=== PATIENT | female | born 1940 | race Caucasian/White ===

== ENCOUNTER → 2020-09-06 10:01 | Outpatient (BNVA) | payer MEDICARE, SELFPAY | PROVIDERS: Visit Provider Internal Medicine Gastroenterology | DX: K21.9 Gastro-esophageal reflux disease without esophagitis (principal); K58.1 Irritable bowel syndrome with constipation | CPT/HCPCS: Q3014 ==

== ENCOUNTER 2021-02-15 13:07 | Emergency (ER) | payer MEDICARE, SELFPAY ==
--- NOTE | ~2021-02-15 | XR_ITS ---
EXAMINATION: LEFT KNEE AND ANKLE X-RAY CLINICAL INFORMATION: Pain post fall COMPARISON: None TECHNIQUE: 4 views of the left knee and 3 views of the left ankle FINDINGS: Left ankle: Bone alignment is normal. No fracture or dislocation is seen. The ankle mortise is normal. There is soft tissue arterial calcification. Left knee: Bone alignment is normal. No fracture or dislocation is seen. There is degenerative meniscal calcification. There is medial femoral tibial joint space narrowing. There are small osteophytes at the patellofemoral joint. There is a small joint effusion. There is evidence of atherosclerotic disease. XR/XR knee LT 4V IMPRESSION: Left ankle: No fracture or dislocation. Left knee: Mild degenerative changes and small joint effusion. No fracture or dislocation.
--- NOTE | ~2021-02-15 | XR_ITS ---
EXAMINATION: LEFT KNEE AND ANKLE X-RAY CLINICAL INFORMATION: Pain post fall COMPARISON: None TECHNIQUE: 4 views of the left knee and 3 views of the left ankle FINDINGS: Left ankle: Bone alignment is normal. No fracture or dislocation is seen. The ankle mortise is normal. There is soft tissue arterial calcification. Left knee: Bone alignment is normal. No fracture or dislocation is seen. There is degenerative meniscal calcification. There is medial femoral tibial joint space narrowing. There are small osteophytes at the patellofemoral joint. There is a small joint effusion. There is evidence of atherosclerotic disease. XR/XR ankle LT min 3V IMPRESSION: Left ankle: No fracture or dislocation. Left knee: Mild degenerative changes and small joint effusion. No fracture or dislocation.
[2021-02-15 13:19] VITALS: BP 135/72; PULSE 63; RESP 16; TEMP 36.6; O2SAT 98; BMI 30.1
--- NOTE | 2021-02-15 14:41 | ED.LOWEXIN ---
HPI - Extremity Injury (Lower) General Chief Complaint: Extremity Injury, Lower Stated Complaint: FALL KNEE INJ Time Seen by Provider: 02/15/21 14:41 History of Present Illness HPI Narrative: Patient complains of left ankle and left knee pain after a trip and fall yesterday, she is able to ambulate easily with her walker, she remembers everything she had no syncope no presyncope no dizziness no chest pain no headache and was a simple trip and fall Related Data Home Medications Medication Instructions Recorded Confirmed dicyclomine 10 mg capsule 10 mg PO BID 09/06/20 09/06/20 gabapentin 300 mg capsule 300 mg PO BID 09/06/20 09/06/20 lovastatin 20 mg tablet 20 mg PO QPM 09/06/20 09/06/20 propranolol 10 mg tablet 10 mg PO BID 09/06/20 09/06/20 Previous Rx's Medication Instructions Recorded dicyclomine 10 mg capsule 10 mg PO BID 30 Days #60 cap MDD 4 09/06/20 Allergies Allergy/AdvReac Type Severity Reaction Status Date / Time penicillin V Allergy Unknown rash Verified 09/06/20 10:02 Penicillins Allergy Unknown RASH Verified 09/06/20 10:02 Review of Systems Review of Systems: Positive for left knee and left ankle pain Negatives are no fever no chills no dizziness no weakness no fainting no feeling faint no vision changes no headache no neck pain no back pain no numbness weakness or tingling Yes all other systems are reviewed and are negative [facility] Past Medical History Source: nursing notes reviewed Medical History (Updated 02/16/21 @ 00:01 by Xi Mascorro) GERD (gastroesophageal reflux disease) Irritable bowel syndrome with constipation Surgical History (Updated 09/07/20 @ 14:33 by Adrienne Vidal MD) H/O esophagogastroduodenoscopy Hx of colonoscopy Family History Family History Father No problems noted. Mother Diabetes Heart problem Social History Social History Household Members: None Alcohol intake: current Alcohol intake frequency: does not drink Smoking Status: Never smoker Physical Exam Vital Signs: Vital Signs: Last Vital Signs Temp 97.9 F 02/15/21 13:19 Pulse 63 02/15/21 13:19 Resp 16 02/15/21 13:19 BP 135/72 02/15/21 13:19 Pulse Ox 98 02/15/21 13:19 Body Mass Index 30.1 General appearance no acute distress Head is normocephalic atraumatic Neck supple nontender The back supple nontender Respiratory no distress Extremities the left knee has anterior tenderness no obvious deformity no obvious effusion no ligamentous laxity patient can do a straight leg raise, neurovascular intact distal Left ankle had lateral malleolus mild tenderness no significant swelling, range of motion was normal and neurovascular intact distal Upper extremities were normal Neuro no gross motor or sensory deficit Course Course Course Narrative: X-rays did not reveal any acute fracture, knee x-ray did show some arthritis Patient remains comfortable throughout visit and is referred for orthopedic follow-up Discharge Plan Discharge Clinical Impression: Osteoarthritis of left knee, Left ankle sprain Patient Disposition: Home, Self-Care Additional Instructions: Follow with your doctor and orthopedist if necessary X-rays showed arthritis in the left knee There were no broken bones in left knee or left ankle Return any time any worse condition or any concerns Prescriptions: No Action lovastatin 20 mg tablet 20 mg PO QPM RF: 0 gabapentin 300 mg capsule 300 mg PO BID RF: 0 propranolol 10 mg tablet 10 mg PO BID RF: 0 dicyclomine 10 mg capsule 10 mg PO BID RF: 0 dicyclomine 10 mg capsule 10 mg PO BID MDD 4 30 Days Qty: 60 RF: 4 Referrals: Marbella Brown MD [Physician] - 2 days (Left knee osteoarthritis) Interventions: ED Discharge Assessment Last Done: 02/15/21 14:50 Discharge Date/Time: 02/15/21 14:51
== END 2021-02-15 14:51 | disposition home or self-care (01) ==
PROVIDERS: Emergency Provider Emergency Medicine; PCP Internal Medicine Pulmonary Disease
DX: M17.12 Unilateral primary osteoarthritis, left knee (principal); S93.402A Sprain of unspecified ligament of left ankle, initial encounter; W01.0XXA Fall on same level from slipping, tripping and stumbling without subsequent striking against object, initial encounter; Y93.9 Activity, unspecified; Y92.019 Unspecified place in single-family (private) house as the place of occurrence of the external cause; Y99.9 Unspecified external cause status
CPT/HCPCS: 73564; 73610; 99283

== ENCOUNTER → 2021-03-29 08:51 | Outpatient (BNVA) | payer MEDICARE, SELFPAY | PROVIDERS: PCP Internal Medicine Pulmonary Disease; Referring Provider Internal Medicine Pulmonary Disease; Visit Provider Nurse Practitioner Family | DX: K21.9 Gastro-esophageal reflux disease without esophagitis (principal); K58.0 Irritable bowel syndrome with diarrhea | CPT/HCPCS: 99212 ==

== ENCOUNTER 2021-05-01 08:50 | Emergency (ER) | payer MEDICARE, SELFPAY ==
[2021-05-01 09:04] VITALS: BP 186/87; PULSE 70; RESP 16; TEMP 36.8; O2SAT 98; BMI 28.2
--- NOTE | 2021-05-01 09:09 | ED_ITS ---
HPI - Wound/Laceration General Chief Complaint: Wound/Laceration Stated Complaint: BURN ON L FOOT WORK RELATED Source: patient Mode of arrival: ambulatory Limitations: no limitations History of Present Illness HPI narrative: Patient presents to ED for left foot pain described as burning. 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 Patient denies any fever, chills, or worsening redness. Patient unknown when last tetanus. Related Data Home Medications Medication Instructions Recorded Confirmed gabapentin 300 mg capsule 300 mg PO BID 09/06/20 09/06/20 lovastatin 20 mg tablet 20 mg PO QPM 09/06/20 09/06/20 propranolol 10 mg tablet 10 mg PO BID 09/06/20 09/06/20 loperamide 2 mg tablet 2 mg PO Q6H PRN 03/29/21 03/29/21 loratadine 5 mg/5 mL oral solution 5 ml PO BID 03/29/21 03/29/21 omeprazole 40 mg capsule,delayed 40 mg PO DAILY 03/29/21 03/29/21 release Previous Rx's Medication Instructions Recorded dicyclomine 10 mg capsule 10 mg PO BID #60 cap 03/29/21 bacitracin 1 appl TOPICAL BID 7 Days #28 g 05/01/21 Allergies Allergy/AdvReac Type Severity Reaction Status Date / Time penicillin V Allergy Unknown rash Verified 03/29/21 09:17 Penicillins Allergy Unknown RASH Verified 03/29/21 09:17 Review of Systems Review of Systems: Yes all other systems are reviewed and are negative Constitutional: Constitutional: Reports as per HPI and Reports no additional constitutional complaints Eyes: Eyes: Reports as per HPI and Reports no additional eye complaints ENT: Reports system reviewed and no additional complaints, except as documented and Reports as per HPI Cardiovascular: Cardiovascular: Reports as per HPI and Reports no additional cardiovascular complaints Respiratory: Respiratory: Reports as per HPI and Reports no additional respiratory complaints Gastrointestinal: Gastrointestinal: Reports as per HPI and Reports no additional gastrointestinal complaints Genitourinary: Genitourinary: Reports no additional female genitourinary complaints and Reports as per HPI Musculoskeletal: Musculoskeletal: Reports no additional musculoskeletal complaints and Reports as per HPI Comments: Foot pain Neurologic: Reports system reviewed and no additional complaints, except as documented and Reports as per HPI Psychiatric: Psychiatric: Reports no additional psychiatric complaints and Reports as per HPI PMF Past Medical History Medical History (Updated 05/01/21 @ 10:51 by JORDAN Sainz) GERD (gastroesophageal reflux disease) Irritable bowel syndrome with constipation Surgical History (Updated 09/07/20 @ 14:33 by Adrienne Vidal MD) H/O esophagogastroduodenoscopy Hx of colonoscopy Family History Family History Father No problems noted. Mother Diabetes Heart problem Social History Social History Household Members: None Alcohol intake: never Smoked in Last 30 Days: No Use of substances other than those prescribed or required for medical reasons: No Advance Directives: No Advance Directives Information Provided: No Physical Exam Vital Signs: Vital Signs: Last Vital Signs Temp 98.2 F 05/01/21 09:04 Pulse 70 05/01/21 09:04 Resp 16 05/01/21 09:04 BP 168/81 H 05/01/21 10:39 Pulse Ox 98 05/01/21 09:04 Body Mass Index 28.2 Const: General: cooperative, healthy appearing, comfortable, no acute distress, well developed, alert, awake and Physically active Orientation/ consciousness: patient oriented x3 HENMT: Head: Yes normal to inspection, Yes No palpable skull fracture present, Yes normocephalic, Yes atraumatic and No abrasion Eyes: General: appearance normal, both eyes and all related structures Neck: Neck: Yes normal visual inspection, Yes full ROM, Yes no lymphadenopathy, Yes no meningeal signs, Yes trachea midline, Yes supple and No tender Chest: Chest palpation & inspection: normal inspection of the chest and normal palpation of entire chest wall Resp: Effort & Inspection: normal respiratory effort and able to speak in complete sentences Auscultation: clear to auscultation bilaterally Cardio: Jugular venous distension: no JVD Heart sounds: S1 normal heart sound present and S2 normal heart sound present GI: Inspection: Yes normal to inspection and No abdominal wall ecchymosis Palpation (GI): Soft to palpation, not firm, nontender, no guarding and not rigid : General: No CVA tenderness and Yes no CVA tenderness Back/Spine/Pelvis: Back: no CVA tenderness, No CVA tenderness and No back tenderness Skin: Other: Second-degree burn of left foot Neuro: General: patient oriented x3, no meningeal signs and CN's II-XI intact bilaterally Cranial nerves: Yes CN's II-XII intact bilaterally Extrem: Other: Left foot second-degree burn. Left foot vascular/motor/neuro exam is intact Psych: Appearance: grossly normal, well kempt and not disheveled Course Course Course Narrative: Patient has second-degree burn. Patient's states feeling very anxious and in pain which could be contributing to her elevated blood pressure. Patient denies any history of blood pressure. Reevaluation(s) Reevaluation #1: This detergent looked up online and negative for hydro florid acid. Just Hypochlorine. Wound will be irrigated and placed in bacitracin ointment and dressing. Her hearing current tetanus injection. Patient does not have any history of diabetes any immuno compromise diseases. As per up-to-date antibiotics not necessary. Time: 21:28 Reevaluation #2: Patient blood pressure improved. Patient states no history of blood pressure. No indication for labs. Patient will be discharged informed to follow-up with PCP for her blood pressure and wound clinic for burn. Patient wound was irrigated and bacitracin was placed with new dressing place. Time: 10:40 MDM - Wound/Laceration MDM Narrative Medical decision making narrative: Second-degree burn Discharge Plan Discharge Clinical Impression: Second degree burn Patient Disposition: Home, Self-Care Instructions: Second Degree Burn (ED) Additional Instructions: Return to the ED for any pus discharge, foul odor, fever, chills, severe redness, swelling, calf pain, development of red streaks, chest pain, shortness of breath, or any other concerning symptoms. Please follow-up with your PCP. Prescriptions: New bacitracin 500 unit/gram ointment 1 appl topical BID 7 Days Qty: 28 RF: 0 No Action lovastatin 20 mg tablet 20 mg PO QPM RF: 0 gabapentin 300 mg capsule 300 mg PO BID RF: 0 propranolol 10 mg tablet 10 mg PO BID RF: 0 omeprazole 40 mg capsule,delayed release(DR/EC) 40 mg PO DAILY RF: 0 loratadine [Claritin] 5 mg/5 mL solution 5 ml PO BID RF: 0 loperamide [Imodium A-D] 2 mg tablet 2 mg PO Q6H PRNRF: 0 dicyclomine 10 mg capsule 10 mg PO BID Qty: 60 RF: 2 Referrals: Irene Daniels PA [Physician [employer]] - 2 days (Left foot second-degree burn) Moraima Miller MD [Primary Care Provider] - 2 days (Seen in the ED for left foot second-degree burn. His pressure was slightly elevated most likely du e to white coat hypertension, the patient should follow up with PCP to re- evaluate blood pressure.) Interventions: ED Discharge Assessment Last Done: 05/01/21 11:00 Discharge Date/Time: 05/01/21 11:05 Print Language: Indonesian
[2021-05-01] MEDS: Diphth,Pertus(ACell),Tet Adult 0.5 ML SYRINGE IM (09:30)
[2021-05-01] MEDS: Bacitracin Oint 14 GM TUBE 1 APPL TOPICAL (09:30)
[2021-05-01] MEDS: Ibuprofen 800 MG TABLET PO (09:30)
[2021-05-01 10:39] VITALS: BP 168/81
== END 2021-05-01 11:05 | disposition home or self-care (01) ==
PROVIDERS: Emergency Provider Emergency Medicine; PCP Internal Medicine
DX: T55.1X1A Toxic effect of detergents, accidental (unintentional), initial encounter (principal); T25.622A Corrosion of second degree of left foot, initial encounter; T32.0 Corrosions involving less than 10% of body surface; Y93.G1 Activity, food preparation and clean up; Y92.511 Restaurant or cafe as the place of occurrence of the external cause; Y99.0 Civilian activity done for income or pay
CPT/HCPCS: 16020; 90471; 90715; 99284

== ENCOUNTER 2021-05-27 12:29 | Outpatient (REF) | payer MEDICARE, SELFPAY ==
[2021-05-28 12:31] LABS: H Pylori Breath Test NOT DETECTED (NOT DETECTED)
== END 2021-05-27 12:30 | disposition home or self-care (01) ==
LOC: HO.LNP 12:29
PROVIDERS: PCP Internal Medicine; Visit Provider Nurse Practitioner Family
DX: K21.9 Gastro-esophageal reflux disease without esophagitis (principal); K58.2 Mixed irritable bowel syndrome
CPT/HCPCS: 83013; 99212

== ENCOUNTER 2022-08-21 00:20 | Emergency (ER) | payer MEDICARE, SELFPAY ==
[2022-08-21 00:28] VITALS: BP 108/87; PULSE 79; RESP 18; TEMP 36.8; O2SAT 99; BMI 29.2
[2022-08-21 00:42] LABS: Basophils Absolute Auto 0.1 X10*3/uL (0.0-0.2); Basophils Percent Auto 0.7 % (0-2); Eosinophils Absolute Auto 0.3 X10*3/uL (0.0-0.4); Hemoglobin 12.3 g/dl (12.0-16.0); Imm Gran Abs Auto 0.03 X10*3/uL (0.00-0.03); Imm Gran Pct Auto 0.3 % (0.0-0.4); Lymphocytes Absolute Auto 1.8 X10*3/uL (1.2-4.9); MANUAL DIFF FLAG NO; Mean Corpuscular HGB Conc 33.2 g/dl (31.0-35.0); Mean Corpuscular Hemoglobin 28.9 pg (27.0-33.0); Mean Corpuscular Volume 87.1 fL (80.0-98.0); Mean Platelet Volume 10.6 fL (9.4-12.3); Monocytes Absolute Auto 0.9 X10*3/uL (0.1-1.2); Neutrophils Absolute Auto 6.4 x10*3/uL (2.0-8.3); Platelet Count 238 X10*3/uL (160-400); Red Blood Count 4.25 X10*6/uL (4.20-5.50); Red Cell Distribution Width 14.5 % (11.0-16.0); White Blood Count 9.4 X10*3/uL (4.8-10.8)
[2022-08-21 01:02] LABS: Alanine Aminotransferase 14 U/L (0-31); Albumin Level 4.2 g/dL (3.5-5.0); Alkaline Phosphatase 95 U/L (39-117); Anion Gap 19 (12-20); Aspartate Amino Transferase 20 U/L (5-31); Bilirubin Total 0.5 mg/dL (0.0-1.0); Blood Urea Nitrogen 29 mg/dL (9-16); Calcium 9.7 mg/dL (8.4-10.2); Carbon Dioxide 23 mmol/L (22-29); Chloride 105 mmol/L (96-108); Creatinine Clr Calc Pharmacy 37.7; Estimated Glomerular Filt Rate 49; Glucose Random 99 mg/dL (60-115); Potassium 4.7 mmol/L (3.3-5.1); Sodium 142 mmol/L (135-145); Total Protein 7.1 g/dL (6.5-8.0)
[2022-08-21 02:28] LABS: Appearance Urine Cloudy; Color Urine Yellow; Glucose Urine UA Negative (Negative); Leukocyte Esterase Urine Moderate (2+) (Negative); Nitrite Urine Positive (Negative); PH 5.5 (5.0-9.0); Specific Gravity - Urine 1.015 (1.005-1.025); UMIC TRIGGER UACC YES; Urine Blood Trace (Negative); Urine Ketones Negative (Negative); Urine Protein 300 (3+) mg/dL (Neg-Trace)
[2022-08-21 02:32] LABS: Bacteria Urine 4+ (None Seen); Hyaline Casts Urine 0-2 /LPF (0-2); Squamous Epithelial Cell Urine 0-2 /HPF (0-2); UACC Culture Trigger YES; WBC Urine >50 /HPF (0-5)
[2022-08-21 03:10] VITALS: BP 131/78; PULSE 88; RESP 22; TEMP 37.2; O2SAT 95
--- NOTE | 2022-08-21 03:27 | ED.FEMALEGU ---
HPI - Female Genitourinary General Chief complaint: Urogenital-Female Stated complaint: UTI Time Seen by Provider: 08/21/22 03:02 Source: patient Mode of arrival: ambulatory History of Present Illness HPI Narrative: 82-year-old female presents with 4 days of worsening urinary pain/burning/frequency and patient now has intermittent chills and has some lower back pain. Related Data Home Medications Medication Instructions Recorded Confirmed lovastatin 20 mg tablet 20 mg PO QPM 09/06/20 09/06/20 loratadine 5 mg/5 mL oral solution 5 ml PO BID 03/29/21 03/29/21 (Claritin) biotin 1 mg capsule 1 mg PO DAILY 05/27/21 gabapentin 300 mg capsule 400 mg PO BID 05/27/21 lisinopril 5 mg tablet 5 mg PO DAILY 05/27/21 naproxen sodium 220 mg capsule 220 mg PO BID PRN 05/27/21 (Aleve) Previous Rx's Medication Instructions Recorded bacitracin 500 unit/gram topical 1 appl topical BID 7 days #28 grams 05/01/21 ointment methylcellulose (laxative) 500 mg 500 mg PO DAILY #30 tabs 05/27/21 tablet (Citrucel) cefdinir 300 mg capsule 300 mg PO BID 7 days #14 caps 08/21/22 Allergies Allergy/AdvReac Type Severity Reaction Status Date / Time penicillin V Allergy Unknown rash Verified 05/27/21 13:16 Penicillins Allergy Unknown RASH Verified 05/27/21 13:16 Review of Systems Review of Systems: Pertinent positives and negatives as stated in HPI 10 point review of systems is otherwise negative. [facility] Past Medical History Source: nursing notes reviewed Medical History GERD (gastroesophageal reflux disease) Irritable bowel syndrome with constipation Surgical History H/O esophagogastroduodenoscopy Hx of colonoscopy Family History Family History Father No problems noted. Mother Diabetes Heart problem Social History Social History Household Members: None Alcohol intake: never Smoked in Last 30 Days: No Use of substances other than those prescribed or required for medical reasons: No Advance Directives: No Patient : No Physical Exam Vital Signs: Vital Signs: Last Vital Signs Temp 98.9 F 08/21/22 03:10 Pulse 88 08/21/22 03:10 Resp 22 H 08/21/22 03:10 BP 131/78 08/21/22 03:10 Pulse Ox 95 08/21/22 03:10 O2 Del Method 08/21/22 03:10 BMI result Body Mass Index 29.2 VITAL SIGNS: Reviewed. GENERAL: Well developed, well nourished, in no acute distress. HEAD: Normocephalic/atraumatic EYES: PERRLA, EOMI EARS: Ext canals without abnormality OROPHARYNX: no oral lesions noted, posterior pharynx clear LUNGS: Normal breath sounds. No adventitious sounds or accessory muscle use. SpO2<95> CARDIOVASCULAR: Regular rate and rhythm without noted murmurs ABDOMEN: Soft, non-tender, non-distended with bowel sounds. MUSCULOSKELETAL: No tenderness, deformities, or effusions noted on gross inspection. EXTREMITIES: No cyanosis, clubbing or edema. SKIN: Inspection of the skin reveals no rashes NEUROLOGIC: Alert and oriented x 4. Strength and sensation to light touch were grossly intact x 4. Course Course Course Narrative: 82-year-old female with history and clinical presentation after review of all investigations consistent with UTI and given additional symptoms of chills and lower back pain suspect possible pyelonephritis. This patient has 1 kidney and so will cover her for presumptive pyelonephritis as well as providing her with analgesics. MDM - Female Genitourinary Lab Data Result diagrams: 08/21/22 00:38 08/21/22 00:38 Labs: Lab Results 08/21/22 08/21/22 08/21/22 Range/Units 00:38 00:38 02:22 WBC 9.4 (4.8-10.8) X10*3/uL RBC 4.25 (4.20-5.50) X10*6/uL Hgb 12.3 (12.0-16.0) g/dl Hct 37.0 (37.0-47.0) % MCV 87.1 (80.0-98.0) fL MCH 28.9 (27.0-33.0) pg MCHC 33.2 (31.0-35.0) g/dl RDW 14.5 (11.0-16.0) % Plt Count 238 (160-400) X10*3/uL MPV 10.6 (9.4-12.3) fL Immature Gran % (Auto) 0.3 (0.0-0.4) % Neut % (Auto) 68.0 (45-73) % Lymph % (Auto) 19.0 L (20-40) % Gilchrist % (Auto) 9.0 (2-11) % Eos % (Auto) 3.0 (0-4) % Baso % (Auto) 0.7 (0-2) % Lymph # (Auto) 1.8 (1.2-4.9) X10*3/uL Gilchrist # (Auto) 0.9 (0.1-1.2) X10*3/uL Eos # (Auto) 0.3 (0.0-0.4) X10*3/uL Baso # (Auto) 0.1 (0.0-0.2) X10*3/uL Abs Immat Gran (auto) 0.03 (0.00-0.03) X10*3/uL Absolute Neuts (auto) 6.4 (2.0-8.3) x10*3/uL Absolute Nucleated RBC 0.000 (0.0-0.012) X10*3/uL Nucleated RBC % (auto) 0.0 (0.0-0.2) /100WBC Sodium 142 (135-145) mmol/L Potassium 4.7 (3.3-5.1) mmol/L Chloride 105 (96-108) mmol/L Carbon Dioxide 23 (22-29) mmol/L Anion Gap 19 (12-20) BUN 29 H (9-16) mg/dL Creatinine 1.07 (0.5-1.4) mg/dL Estim Creat Clear Calc 37.7 Estimated GFR 49 Random Glucose 99 (60-115) mg/dL Calcium 9.7 (8.4-10.2) mg/dL Total Bilirubin 0.5 (0.0-1.0) mg/dL AST 20 (5-31) U/L ALT 14 (0-31) U/L Alkaline Phosphatase 95 (39-117) U/L Total Protein 7.1 (6.5-8.0) g/dL Albumin 4.2 (3.5-5.0) g/dL Urine Color Yellow Urine Appearance Cloudy Urine pH 5.5 (5.0-9.0) Ur Specific [place] 1.015 (1.005-1.025) Urine Protein 300 (3+) H (Neg-Trace) mg/dL Urine Glucose (UA) Negative (Negative) mg/dL Urine Ketones Negative (Negative) mg/dL Urine Blood Trace H (Negative) Urine Nitrite Positive H (Negative) Ur Leukocyte Esterase Moderate (2+) H (Negative) Urine RBC 6-10 H (0-2) /HPF Urine WBC >50 H (0-5) /HPF Ur Squamous Epith Cells 0-2 (0-2) /HPF Urine Bacteria 4+ (None Seen) Hyaline Casts 0-2 (0-2) /LPF Discharge Plan Discharge Clinical Impression: Pyelonephritis Patient Disposition: Home, Self-Care Instructions: Kidney Infection (ED) Additional Instructions: 1. Complete the entire course of antibiotics as ordered. 2. Recommend [id number] Tylenol for pain relief. And increased amount of water drinking. 3. Follow-up with primary care provider today. Return to the ER for worsening symptoms. Prescriptions: New cefdinir 300 mg capsule 300 mg PO BID 7 Days Qty: 14 0RF No Action bacitracin 500 unit/gram ointment 1 appl topical BID 7 Days Qty: 28 0RF lisinopril 5 mg tablet 5 mg PO DAILY naproxen sodium [Aleve] 220 mg capsule 220 mg PO BID PRN biotin 1 mg capsule 1 mg PO DAILY Citrucel 500 mg tablet 500 mg PO DAILY Qty: 30 2RF Rx Instructions: take it with full glass of water lovastatin 20 mg tablet 20 mg PO QPM gabapentin 300 mg capsule 400 mg PO BID loratadine [Claritin] 5 mg/5 mL solution 5 ml PO BID Referrals: Eliza Ibrahim NP [Primary Care Provider] -
[2022-08-21] MEDS: Phenazopyridine HCL 200 MG TABLET PO (04:48)
[2022-08-21] MEDS: Acetaminophen 325 MG TABLET 975 MG PO (04:48)
[2022-08-21] MEDS: levoFLOXacin 500 MG TABLET PO (04:48)
== END 2022-08-21 05:00 | disposition home or self-care (01) ==
PROVIDERS: Emergency Provider Student in an Organized Health Care Education/Training Program; PCP Nurse Practitioner Family
DX: N12 Tubulo-interstitial nephritis, not specified as acute or chronic (principal); B96.20 Unspecified Escherichia coli [E. coli] as the cause of diseases classified elsewhere
CPT/HCPCS: 36415; 80053; 81001; 85025; 87086; 87088; 87186; 99283; 99284

== ENCOUNTER → 2023-02-21 07:51 | Outpatient (BNVA) | payer MEDICARE, SELFPAY | PROVIDERS: PCP Nurse Practitioner Family; Visit Provider Nurse Practitioner Family | DX: K21.9 Gastro-esophageal reflux disease without esophagitis (principal); K58.1 Irritable bowel syndrome with constipation; K44.9 Diaphragmatic hernia without obstruction or gangrene; Z79.899 Other long term (current) drug therapy | CPT/HCPCS: 99212 ==

== ENCOUNTER 2023-11-18 03:06 | Inpatient (IN) | payer MEDICARE, SELFPAY ==
[2023-11-18] VITALS (8 sets, daily range): BP systolic 104–174; BP diastolic 52–100; PULSE 74–110; RESP 15–20; TEMP 36.3–37.2; O2SAT 91–96; BMI 29.2; BMI 29.3
--- NOTE | 2023-11-18 | ECG_ITS ---
Test Reason : FALL Blood Pressure : / mmHG Vent. Rate : 083 BPM Atrial Rate : 083 BPM P-R Int : 162 ms QRS Dur : 078 ms QT Int : 394 ms P-R-T Axes : 077 043 016 degrees QTc Int : 462 ms Normal sinus rhythm Normal ECG When compared with ECG of 22-AUG-2018 08:57, No significant change was found Referred By: Generic ED Physician Electronically Signed By:TED HO
--- NOTE | ~2023-11-18 | FL_ITS ---
EXAMINATION: XR FLUOROSCOPY WITH IMAGES CLINICAL INFORMATION: Retrograde IM nail placement. COMPARISON: Right knee 11/18/2023. TECHNIQUE: Fluoroscopy Supervised By: Dr. Rico Friedman. Fluoroscopy Time: 1.4 minutes. Cumulative Dose: 22.3 mGy. DAP: 0.336 Gy-cm2. Images: 10. FINDINGS: 10 digital images were obtained revealing total knee prosthesis. There is intramedullary femoral zelda with 2 distal screws stabilizing oblique distal femoral shaft fracture. FL/FL guidance in OR IMPRESSION: There is intramedullary femoral zelda and 2 screws stabilizing distal femoral oblique fracture in alignment.
--- NOTE | ~2023-11-18 | CT_ITS ---
EXAMINATION: CT FEMUR WITHOUT CONTRAST, RIGHT CLINICAL INFORMATION: Trauma. COMPARISON: None available. TECHNIQUE: Contiguous axial noncontrast CT scan images of the right femur were obtained without contrast. Sagittal and coronal reformatted images also obtained. This CT examination was performed using dose optimization techniques as appropriate, variously including the following: *Automated exposure control *Adjustment of mA and/or kV according to patient size (this includes techniques or standardized protocols for targeted exams where dose is matched to indication/reason for exam; i.e. extremities or head) *Use of iterative reconstruction technique DLP: 364 mGy-cm FINDINGS: The bony structures are osteopenic. There is a displaced fracture through the distal femoral shaft extending to the femoral metaphysis just above the knee prosthesis. There is atherosclerotic plaque of the arterial vessels. No other fracture seen. The soft tissues are grossly unremarkable. The visualized intrapelvic structures are also unremarkable. CT/CT femur RT wo IV con IMPRESSION: Displaced fracture through the distal femoral shaft extending to the femoral metaphysis just above the knee prosthesis.
--- NOTE | ~2023-11-18 | XR_ITS ---
EXAMINATION: XR KNEE, RIGHT CLINICAL INFORMATION: Fall. Pain. COMPARISON: None available. TECHNIQUE: 3 views of the right knee. FINDINGS: The bony structures are osteopenic. A knee prosthesis noted in place. There is a displaced fracture of the distal femoral shaft. There is a small joint effusion. There is atherosclerotic plaque of the arterial vessels. XR/XR knee RT 2V IMPRESSION: Displaced fracture of the distal femoral shaft.
--- NOTE | ~2023-11-18 | XR_ITS ---
EXAMINATION: XR CHEST CLINICAL INFORMATION: Preop. COMPARISON: None available. TECHNIQUE: Frontal view of the chest was obtained. FINDINGS: The lung volumes are low and the patient is rotated. The cardiomediastinal silhouette is stable. There is lower lung field increased markings. There is no focal lung consolidation or pleural effusion. A left shoulder prosthesis is noted in place. Thoracolumbar orthopedic hardware is also noted. The soft tissues are unremarkable. XR/XR chest 1V IMPRESSION: Low lung volumes. Lower lung field increased markings likely technical and/or chronic. No focal lung consolidation.
[2023-11-18 03:50] LABS: Hematocrit 35.6 % (37.0-47.0); Hemoglobin 11.9 g/dl (12.0-16.0); Mean Corpuscular HGB Conc 33.4 g/dl (31.0-35.0); Mean Corpuscular Hemoglobin 30.1 pg (27.0-33.0); Mean Corpuscular Volume 90.1 fL (80.0-98.0); Mean Platelet Volume 10.3 fL (9.4-12.3); Platelet Count 214 X10*3/uL (160-400); Red Blood Count 3.95 X10*6/uL (4.20-5.50); Red Cell Distribution Width 13.7 % (11.0-16.0); White Blood Count 8.7 X10*3/uL (4.8-10.8)
[2023-11-18] MEDS: Acetaminophen 325 MG TABLET 975 MG PO ×2 (04:01→19:43)
--- NOTE | 2023-11-18 04:12 | ED_ITS ---
HPI - Fall General Chief Complaint: Fall Stated Complaint: fall Time Seen by Provider: 11/18/23 04:11 Source: patient Mode of arrival: EMS Limitations: no limitations History of Present Illness HPI Narrative: Patient came by EMS after the fall when she trying to get off the couch lost balance and fell on her right knee was unable to stand up because of the pain crawled called the EMS swelling and tenderness in the lower right femur just above the knee joint patient apparently had right knee replacement about 8- 9 years ago at [facility] for arthritis, no other injuries patient not on any blood thinners Related Data Home Medications Medication Instructions Recorded Confirmed biotin 1 mg capsule 1 mg PO DAILY 05/27/21 lisinopril 5 mg tablet 5 mg PO DAILY 05/27/21 omeprazole 20 mg capsule,delayed 20 mg PO DAILY 02/21/23 release aspirin 81 mg tablet,delayed 81 mg PO DAILY 11/18/23 release gabapentin 400 mg capsule 400 mg PO BID 11/18/23 ipratropium bromide 21 mcg (0.03 2 spray intranasal BID PRN 11/18/23 %) nasal spray Allergic Symptoms lovastatin 20 mg tablet 20 mg PO BEDTIME 11/18/23 Previous Rx's Medication Instructions Recorded methylcellulose (laxative) 500 mg 500 mg PO DAILY #30 tabs 02/21/23 tablet (Citrucel) Allergies Allergy/AdvReac Type Severity Reaction Status Date / Time penicillin V Allergy Unknown rash Verified 11/18/23 03:17 Penicillins Allergy Unknown RASH Verified 11/18/23 03:17 Review of Systems 2 Review of Systems: Yes all other systems are reviewed and are negative [facility] Past Medical History Medical History (Updated 11/18/23 @ 05:40 by Maura Serrano MD) Hypertension Hyperlipidemia GERD (gastroesophageal reflux disease) Irritable bowel syndrome with constipation Surgical History (Updated 11/18/23 @ 05:38 by Maura Serrano MD) History of back surgery H/O shoulder surgery Status post right knee replacement H/O esophagogastroduodenoscopy Hx of colonoscopy Family History Family History Father No problems noted. Mother Diabetes Heart problem Social History Social History Household Members: None Alcohol intake: never Patient Tobacco Use Status: Tobacco use Unknown Smoked in Last 30 Days: No Use of substances other than those prescribed or required for medical reasons: No Advance Directives: Yes Advance Directives Information Provided: No Advance Directives on File: No Nutrition Risks: No Nutritional Risk Physical Exam 2 Vital Signs: Vital Signs: Last Vital Signs Temp 98.4 F 11/18/23 05:24 Pulse 91 11/18/23 05:24 Resp 16 11/18/23 05:24 BP 130/57 L 11/18/23 05:24 Pulse Ox 95 11/18/23 05:24 O2 Del Method Room Air 11/18/23 05:24 BMI result Body Mass Index 29.2 Appearance: Alert. Oriented X3. No acute distress. Eyes: PERRLA, ENT: Pharynx normal. Oral Mucosa moist Neck: Normal inspection. Neck supple. CVS: Normal heart rate and rhythm. Pulses normal. Respiratory: No respiratory distress. Equal air entry bilateral, Abdomen: Soft and nontender. Bowel sounds are present, Skin: Skin warm and dry. Normal skin color. Normal skin turgor. Extremities: No lower extremity edema. No calf tenderness right knee swollen above knee with significant tenderness neurovascular intact pelvis stable hip joint stable Neuro: Oriented X 3. No motor deficit. Medications Administered Generic Name Dose Route Start Last Admin Trade Name Freq PRN Reason Stop Dose Admin Lactated Ringer's 1,000 mls @ 100 mls/hr 11/18/23 04:45 11/18/23 06:06 Lr IVCONT 100 mls/hr .Q10H MILKA Administration Sodium Chloride 3 ml 11/18/23 08:00 11/18/23 07:46 0.9 % Sodium Chloride Flush 3 Ml Syringe IVFLUSH Not Given QSHIFT MILKA Discontinued Medications Generic Name Dose Route Start Last Admin Trade Name Freq PRN Reason Stop Dose Admin Acetaminophen 975 mg 11/18/23 03:47 11/18/23 04:01 Acetaminophen 325 Mg Tablet PO 11/18/23 03:48 975 mg ONCE ONE Administration Morphine Sulfate 4 mg 11/18/23 04:37 11/18/23 04:42 Morphine Sulfate 4 Mg/Ml Cartridge IVPUSH 11/18/23 04:38 4 mg ONCE ONE Administration Protocol Ondansetron HCl 4 mg 11/18/23 04:37 11/18/23 04:42 Ondansetron Hcl 4 Mg/2 Ml Vial IVPUSH 11/18/23 04:38 4 mg ONCE ONE Administration Medical Decision Making Medical Decision Making [facility] Narrative: Patient is status post mechanical fall with displaced distal femur fracture. Case discussed with Orthopedic Dr. Elder Hernandez will admit patient to medical service plan for surgery in a.m. Differential Diagnosis Differential Diagnoses: The differential diagnosis associated with the presentation includes Admission/Observation Consideration of admission/observation: Escalation of care including admission/observation considered Consult Healthcare Provider Management of the patient was discussed with: Hospitalist and Train Engineer Lab Data [facility] Lab Attestation statement: I reviewed the patient's lab results. 11/18/23 03:45 11/18/23 03:45 Labs: Lab Results 11/18/23 Range/Units 03:45 WBC 8.7 (4.8-10.8) X10*3/uL RBC 3.95 L (4.20-5.50) X10*6/uL Hgb 11.9 L (12.0-16.0) g/dl Hct 35.6 L (37.0-47.0) % MCV 90.1 (80.0-98.0) fL MCH 30.1 (27.0-33.0) pg MCHC 33.4 (31.0-35.0) g/dl RDW 13.7 (11.0-16.0) % Plt Count 214 (160-400) X10*3/uL MPV 10.3 (9.4-12.3) fL Absolute Nucleated RBC 0.000 (0.0-0.012) X10*3/uL Nucleated RBC % (auto) 0.0 (0.0-0.2) /100WBC Sodium 142 (135-145) mmol/L Potassium 4.1 (3.3-5.1) mmol/L Chloride 108 (96-108) mmol/L Carbon Dioxide 23 (22-29) mmol/L Anion Gap 15 (12-20) BUN 23 H (9-16) mg/dL Creatinine 1.00 (0.5-1.4) mg/dL Estim Creat Clear Calc 41.3 Estimated GFR 53 Random Glucose 113 (60-115) mg/dL Calcium 8.9 D (8.4-10.2) mg/dL Troponin I High Sens 23.5 H (<3.5-17.0) ng/L Ethyl Alcohol < 10 mg/dL Independent Interpretation I performed an independent interpretation of an: EKG and Plain X-Ray Interpretation: Normal sinus rhythm heart rate 83 beats per minute normal interval normal axis no acute ST T wave changes no acute ischemia Radiology Impression Discussion of test interpretation with radiology: I have reviewed the radiologist's reading. Radiologist Impression: XR/XR knee RT 2V IMPRESSION: Displaced fracture of the distal femoral shaft. Discharge Plan Discharge Clinical Impression: Closed right femoral fracture Qualifiers: Encounter type: initial encounter Femur location: shaft Fracture morphology: s piral Fracture alignment: displaced Qualified Code(s): S72.341A - Displaced spiral fracture of shaft of right femur, initial encounter for closed fracture Patient Disposition: Admitted As Inpatient
[2023-11-18 04:17] LABS: Anion Gap 15 (12-20); Blood Urea Nitrogen 23 mg/dL (9-16); Calcium 8.9 mg/dL (8.4-10.2); Carbon Dioxide 23 mmol/L (22-29); Chloride 108 mmol/L (96-108); Creatinine Clr Calc Pharmacy 41.3; Estimated Glomerular Filt Rate 53; Glucose Random 113 mg/dL (60-115); Potassium 4.1 mmol/L (3.3-5.1); Sodium 142 mmol/L (135-145)
[2023-11-18 04:19] LABS: Ethanol < 10 mg/dL
[2023-11-18 04:25] LABS: Troponin-I High Sensitivity 23.5 ng/L (<3.5-17.0)
[2023-11-18] MEDS: ondansetron HCL 4 MG/2 ML VIAL IVPUSH (04:42)
[2023-11-18] MEDS: Morphine Sulfate 4 MG/ML CARTRIDGE IVPUSH (04:42)
--- NOTE | 2023-11-18 05:00 | P.HPHOSP_ITS ---
History of Present Illness Date of Service: 11/18/23 Attending physician on admission: Maura Serrano Chief Complaint: Fall, right thigh pain Elaine Junior is 83 years old woman with past medical history significant for hypertension and hypercholesterolemia was brought to the emergency department after she sustained a mechanical fall (while getting up off the couch). She landed on her right side. She does complain of right thigh pain. Denies head trauma. Denies any symptoms such as dizziness, shortness on breath, chest or palpitations before or after falling down. She also denies headache, fever or chills. She denies any cardiopulmonary, gastrointestinal or genitourinary symptoms. No history of CAD, diabetes or congestive heart failure reported. Denied alcohol abuse, tobacco smoking or illicit drug use. Has history of right knee replacement surgery. In the ED, vital signs are stable. Blood workup showed normal creatinine. There are no electrolyte imbalances. Hemoglobin is 11.9 (it was 12.10 Aug 2022). Troponin is slightly elevated, 23.5. Right knee x-ray shows displaced fracture of the distal femoral shaft. ECG shows NSR (HR 83 bpm) with acute ischemic changes. ED tx: APAP 975 mg PO, morphine 4 mg IV, Zofran 4 mg IV. Review of Systems 2 Review of Systems: All 12 systems were reviewed and normal except as noted in HPI. [facility] Medical History (Updated 11/18/23 @ 05:40 by Maura Serrano MD) Hypertension Hyperlipidemia GERD (gastroesophageal reflux disease) Irritable bowel syndrome with constipation Family History Father No problems noted. Mother Diabetes Heart problem Surgical History (Updated 11/18/23 @ 05:38 by Maura Serrano MD) History of back surgery H/O shoulder surgery Status post right knee replacement H/O esophagogastroduodenoscopy Hx of colonoscopy Social History Household Members: None Alcohol intake: never Smoked in Last 30 Days: No Use of substances other than those prescribed or required for medical reasons: No Advance Directives: Yes Advance Directives Information Provided: No Advance Directives on File: No Meds Allergies Allergy/AdvReac Type Severity Reaction Status Date / Time penicillin V Allergy Unknown rash Verified 11/18/23 03:17 Penicillins Allergy Unknown RASH Verified 11/18/23 03:17 Active Medications: Current Medications Acetaminophen (Acetaminophen 325 Mg Tablet) 975 mg PO Q6H PRN PRN Reason: Pain, Mild (Pain Scale 1-3) Lactated Ringer's (Lr) 1,000 mls @ 100 mls/hr IVCONT .Q10H [facility] Morphine Sulfate (Morphine Sulfate 2 Mg/Ml Cartridge) 2 mg IVPUSH Q3H PRN; Protocol PRN Reason: severe pain Ondansetron HCl (Ondansetron Hcl 4 Mg/2 Ml Vial) 4 mg IVPUSH Q6H PRN PRN Reason: Nausea and Vomiting Sodium Chloride (0.9 % Sodium Chloride Flush 3 Ml Syringe) 3 ml IVFLUSH QSHIFT [facility] Home Medications Medication Instructions Recorded Confirmed Last Taken Type lovastatin 20 mg tablet 20 mg PO QPM 09/06/20 09/06/20 Unknown History loratadine 5 mg/5 mL oral solution 5 ml PO BID 03/29/21 03/29/21 Unknown History (Claritin) biotin 1 mg capsule 1 mg PO DAILY 05/27/21 Unknown History gabapentin 300 mg capsule 400 mg PO BID 05/27/21 Unknown History lisinopril 5 mg tablet 5 mg PO DAILY 05/27/21 Unknown History omeprazole 20 mg capsule,delayed 20 mg PO DAILY 02/21/23 Unknown History release gabapentin 400 mg capsule 400 mg PO BID 11/18/23 11/18/23 Unknown History lovastatin 20 mg tablet 20 mg PO DAILY 11/18/23 11/18/23 Unknown History lovastatin 20 mg tablet 20 mg PO DAILY 11/18/23 11/18/23 Unknown History Physical Exam 2 Vital Signs and Narrative: Vital Signs: Last Vital Signs Temp 98.5 F 11/18/23 03:34 Pulse 74 11/18/23 03:34 Resp 18 11/18/23 03:34 BP 142/69 H 11/18/23 03:34 Pulse Ox 96 11/18/23 03:34 O2 Del Method Room Air 11/18/23 03:34 BMI result Body Mass Index 29.2 Constitutional - Awake and Alert, No apparent distress. HEENT - Normocephalic. Atraumatic. Pupil equally round. No scleral icterus. Heart - S1S2, RRR. No murmur. Lungs - Normal lung expansion, Normal respiratory effort, No respiratory distress, CTA bilaterally Gastrointestinal - NT / ND; +BS; No rebound or guarding Extremities - Right thigh: Edematous. No hematomas. No wounds. Distal pulses 2+. Left lower extremities: Normal appearing. Musculoskeletal - Normal inspection, normal ROM Skin - Warm/Dry Neurological - Alert & oriented x3. No facial droop. Normal speech. Normal behavior. Psychological - Appropriate affect Results Labs 11/18/23 03:45 11/18/23 03:45 Labs: Laboratory Results - last 24 hr 11/18/23 03:45 MCV 90.1 MCH 30.1 MCHC 33.4 RDW 13.7 Plt Count 214 MPV 10.3 Absolute Nucleated RBC 0.000 Nucleated RBC % (auto) 0.0 Anion Gap 15 Estim Creat Clear Calc 41.3 Estimated GFR 53 Random Glucose 113 Calcium 8.9 D Ethyl Alcohol < 10 ECG Attestation: I personally reviewed and interpreted this ECG as follows: (Normal sinus rhythm. No acute ischemic changes.) Imaging Radiologist's Impressions: Impressions Knee X-Ray 11/18/23 03:35 IMPRESSION: Displaced fracture of the distal femoral shaft. CXR - Negative. Assessment and Plan (1) Closed right femoral fracture: Qualifiers: Encounter type: initial encounter Femur location: shaft Fracture morphology: spiral Fracture alignment: displaced Qualified Code(s): S72.341A - Displaced spiral fracture of shaft of right femur, initial encounter for closed fracture Status: Acute (2) Hyperlipidemia: Qualifiers: Hyperlipidemia type: unspecified Qualified Code(s): E78.5 - Hyperlipidemia, unspecified Status: Acute (3) Hypertension: Qualifiers: Hypertension type: primary hypertension Qualified Code(s): I10 - Essential (primary) hypertension Status: Acute (4) History of back surgery: Status: Acute (5) GERD (gastroesophageal reflux disease): Qualifiers: Esophagitis presence: without esophagitis Qualified Code(s): K21.9 - Gastro-esophageal reflux disease without esophagitis Status: Acute Plan Elaine Junior is 83 years old woman admitted with: * Right distal displaced femoral shaft fracture, closed. Admit to hospitalist service. Keep NPO. Pain control with morphine IV as needed. Start IV fluids. Orthopedic surgery consult. * Mild anemia likely secondary to above. Recheck HH. * Elevated troponin. No chest pain. Normal ECG. Recheck troponin. * Hyperlipidemia. Continue lisinopril after surgery. * Hyperlipidemia. Continue statin after surgery. * GERD. Protonix IV. DVT prophylaxis: SCDs Code status: Full Patient will need hospitalization for at least 2 midnights for right femoral fracture repair surgery and supportive therapy with pain medications. Quality Stroke Does the patient have a stroke diagnosis?: No VTE Prior VTE?: No VTE Risk Level:: Medical - moderate - high VTE Device Contraindication: N/A - Device Ordered VTE Drug Contraindication: Treatment Not Indicated
--- NOTE | 2023-11-18 05:41 | MHC.EDTECH ---
Pt belongings list done.T/w and arcade game technicianVirginie ledbetter, counted money with Pt and Pt had total of $376. This was placed back in Pts purse with Pt witnessing. Belongings list signed by Pt, t/w and Virginie.
[2023-11-18] MEDS: Lactated Ringers 1,000 ML 100 ML IVCONT ×2 (06:06→14:03)
--- NOTE | 2023-11-18 06:50 | PC.NURSE ---
Pt brought in by ambulance after a fall. Reports got up off the couch and just fell. Denies any dizziness or lightheadedness. Pt doen approximately 30 minutes. No headstrike, no LOC, no thnners. Pt having 101/10 pain to R-knee. Xray and labs complete/
--- NOTE | 2023-11-18 07:54 | PC.NURSE ---
this RN assumed care. pt is alert and oriented, breathing even and unlabored. pt resting in bed, pt reports pain is manageable at this time. no new complaints
[2023-11-18 08:17] LABS: Hematocrit 32.7 % (37.0-47.0); Hemoglobin 10.8 g/dl (12.0-16.0); Mean Corpuscular Hemoglobin 29.9 pg (27.0-33.0); Mean Corpuscular Volume 90.6 fL (80.0-98.0); Mean Platelet Volume 10.2 fL (9.4-12.3); Platelet Count 190 X10*3/uL (160-400); Red Blood Count 3.61 X10*6/uL (4.20-5.50); Red Cell Distribution Width 13.6 % (11.0-16.0); White Blood Count 10.1 X10*3/uL (4.8-10.8)
[2023-11-18] MEDS: Morphine Sulfate 2 MG/ML CARTRIDGE IVPUSH (08:22)
[2023-11-18 08:27] LABS: INTERNATIONAL NORM RATIO 0.9 (0.9-1.1); Prothrombin Time 11.4 SEC (11.1-13.3)
--- NOTE | 2023-11-18 08:28 | PC.NURSE ---
pt requested pain meds for increasing right leg pain, 07/17. pt medicated per DEC.
[2023-11-18 08:36] LABS: Troponin-I High Sensitivity 25.4 ng/L (<3.5-17.0)
--- NOTE | 2023-11-18 09:21 | PHA.MEDREC ---
Pharmacy Consult ? Medication Reconciliation Pharmacy has completed the medication reconciliation. Pt states no longer on aspirin.
[2023-11-18] MEDS: Pantoprazole Sodium 40 MG/10 ML VIAL IVPUSH (09:50)
--- NOTE | 2023-11-18 10:11 | P.HPOP_ITS ---
History of Present Illness History of Present Illness Date of Service: 11/18/23 Chief complaint: Right Femur Fracture Narrative: Elaine Junior is a 83 year old female with a PMH of HTN, HLD, and GERD who presented to the ED after sustaining a mechanical fall at home while trying to get up off the couch. She reports that she lives alone. After the fall she felt immediate right knee pain and was unable to ambulate. She presented to the ED [facility] where x-rays were obtained and she was found to have a distal femur fracture with a right total knee arthroplasty. She reports that the right total knee was done some time ago at [facility] by Dr. Fernando. She was admitted to the medical service with orthopedic consult for further evaluation and treatment. Review of Systems 2 Review of Systems: Yes all other systems are reviewed and are negative [facility] Past Medical History Medical History (Updated 11/18/23 @ 05:40 by Maura Serrano MD) Hypertension Hyperlipidemia GERD (gastroesophageal reflux disease) Irritable bowel syndrome with constipation Family History Family History Father No problems noted. Mother Diabetes Heart problem Surgical History Surgical History (Updated 11/18/23 @ 05:38 by Maura Serrano MD) History of back surgery H/O shoulder surgery Status post right knee replacement H/O esophagogastroduodenoscopy Hx of colonoscopy Social History Social History Household Members: None Alcohol intake: never Patient Tobacco Use Status: Tobacco use Unknown Smoked in Last 30 Days: No Use of substances other than those prescribed or required for medical reasons: No Advance Directives: Yes Advance Directives Information Provided: No Advance Directives on File: No Nutrition Risks: No Nutritional Risk Meds Allergies Allergy/AdvReac Type Severity Reaction Status Date / Time penicillin V Allergy Unknown rash Verified 11/18/23 03:17 Penicillins Allergy Unknown RASH Verified 11/18/23 03:17 Active Medications: Current Medications Acetaminophen (Acetaminophen 325 Mg Tablet) 975 mg PO Q6H PRN PRN Reason: Pain, Mild (Pain Scale 1-3) Celecoxib (Celecoxib 200 Mg Capsule) 200 mg PO BID MILKA Hydromorphone HCl (Hydromorphone Hcl 0.5 Mg/0.5 Ml Syringe) 0.5 mg IVPUSH Q4H PRN; Protocol PRN Reason: Pain, Severe (Pain Scale 7-10) Lactated Ringer's (Lr) 1,000 mls @ 100 mls/hr IVCONT .Q10H [facility] Last Admin: 11/18/23 06:06 Dose: 100 mls/hr Ondansetron HCl (Ondansetron Hcl 4 Mg/2 Ml Vial) 4 mg IVPUSH Q6H PRN PRN Reason: Nausea and Vomiting Oxycodone HCl (Oxycodone Hcl Immed Release 5 Mg Tablet) 5 mg PO Q4H PRN PRN Reason: Pain, Moderate(Pain Scale 4-6) Oxycodone HCl (Oxycodone Hcl Er 10 Mg Tab.Er.12h) 10 mg PO BID [facility] Pantoprazole Sodium (Pantoprazole Sodium 40 Mg/10 Ml Vial) 40 mg IVPUSH DAILY [facility] Last Admin: 11/18/23 09:50 Dose: 40 mg Sodium Chloride (0.9 % Sodium Chloride Flush 3 Ml Syringe) 3 ml IVFLUSH QSHIFT [facility] Last Admin: 11/18/23 07:46 Dose: Not Given Home Medications Medication Instructions Recorded Confirmed Last Taken Type biotin 1 mg capsule 1 mg PO DAILY 05/27/21 11/18/23 11/17/23 History lisinopril 5 mg tablet 5 mg PO DAILY 05/27/21 11/18/23 11/17/23 History gabapentin 400 mg capsule 400 mg PO BID 11/18/23 11/18/23 11/17/23 History ipratropium bromide 21 mcg (0.03 2 spray intranasal BID Allergic 11/18/23 11/18/23 Unknown History %) nasal spray Symptoms lovastatin 20 mg tablet 20 mg PO BEDTIME 11/18/23 11/18/23 11/17/23 History dgppylmu-[id number]-sjo C 250 3 tab PO DAILY 11/18/23 11/18/23 11/17/23 History mg-herbal no.124 11.66 mg chewable tablet (Airborne Gummy) Physical Exam 2 Vital Signs: Vital Signs: Last Vital Signs Temp 98.4 F 11/18/23 05:24 Pulse 91 11/18/23 05:24 Resp 16 11/18/23 08:22 BP 130/57 L 11/18/23 05:24 Pulse Ox 95 11/18/23 05:24 O2 Del Method Room Air 11/18/23 05:24 BMI result Body Mass Index 29.2 Const: General: cooperative, healthy appearing and no acute distress Resp: Effort & Inspection: normal respiratory effort and able to speak in complete sentences Cardio: Rate: regular rate Peripheral pulses: Peripheral pulses 2+ throughout GI: Palpation (GI): Soft to palpation Skin: Lesions: no lesions Rashes: no rashes Extrem: Other: Right thigh is tender to palpation. Compartments are soft and compressible. RTKA surgical scar noted. Able to dorsi/plantar flex. Sensation intact. Pedal puls eintact. Results Labs 11/18/23 08:12 11/18/23 03:45 Labs: Abnormal lab results 11/18/23 11/18/23 Range/Units 03:45 08:12 RBC 3.95 L 3.61 L (4.20-5.50) X10*6/uL Hgb 11.9 L 10.8 L (12.0-16.0) g/dl Hct 35.6 L 32.7 L (37.0-47.0) % BUN 23 H (9-16) mg/dL Troponin I High Sens 23.5 H 25.4 H (<3.5-17.0) ng/L H & H 11/18/23 11/18/23 Range/Units 03:45 08:12 Hgb 11.9 L 10.8 L (12.0-16.0) g/dl Hct 35.6 L 32.7 L (37.0-47.0) % Coagulation 11/18/23 Range/Units 08:12 INR 0.9 (0.9-1.1) All other labs normal. Assessment and Plan (1) Closed right femoral fracture: Qualifiers: Encounter type: initial encounter Femur location: shaft Fracture alignment: displaced Fracture morphology: spiral Qualified Code(s): S72.341A - Displaced spiral fracture of shaft of right femur, initial encounter for closed fracture Status: Acute I discussed the case with Dr. Friedman and explained the extent of the injury to the patient and options available which include surgical intervention. I explained the procedure in detail along with the length of recovery and rehab course. I explained the risk, benefits and alternatives. Risk including, but not limited to infection, blood clots, bleeding, non union or malunion and nerve/tissue damage to surrounding areas. I answered all their questions and with their understanding they have consented to move forward with Operative Fixation of right femur. The patient will be T&S, med clearance obtained and NPO after midnight. I spoke with the patient's daughter Monalisa at [phone]. She expressed that the patient has had multiple orthopedic surgeries at [facility] and was inquiring about a transfer to [facility]. After further discussion with the patient, the patient states that she would rather stay at [facility]. She is in a great deal of pain and states that she does not want to go through another ambulance ride for transfer. We are making medication adjustments to make her pain more manageable. Quality Stroke Does the patient have a stroke diagnosis?: No VTE Prior VTE?: No VTE Risk Level:: Medical - moderate - high VTE Device Contraindication: N/A - Device Ordered VTE Drug Contraindication: Treatment Not Indicated Procedures Date of Service Date of Service: 11/18/23
[2023-11-18] MEDS: HYDROmorphone HCl 0.5 MG/0.5 ML SYRINGE IVPUSH ×3 (10:33→19:43)
--- NOTE | 2023-11-18 10:42 | PC.NURSE ---
patient a&ox3, monitoring and evaluation advisor intact-nsr, vss, pure wick placed, pt has + csm/pulses to RLE, pt had 8/10 pain- dr palacio notified and pts pain medications were changed- pt medicated per new orders. daughter torie called requesting patient to be transferred to [facility]- this nurse messaged dr. palacio to speak with family member, ortho provider also spoke with patient who is requesting to stay at this facility for the time being, pt was offered PO as the order changed to allow PO intake until midnight- pt refusing at this time. IVF running per order, call garcia within reach, will continue to monitor
[2023-11-18] MEDS: oxyCODONE HCl Immed Release 5 MG TABLET 10 MG PO ×2 (11:54→17:39)
--- NOTE | 2023-11-18 11:58 | PC.NURSE ---
patient a&ox3, monitoring analyst intact-nsr/st, pt c/o RLE pain 01/15, pt offered po medication which was given per pt request, pure wick intact/draining clear yellow urine, call garcia within reach, will continue to monitor.
--- NOTE | 2023-11-18 12:00 | PC.NURSE ---
pharmacy called for missing med
[2023-11-18] MEDS: Ipratropium Bromide Nas 0.03 % 30 ML SPRAY 2 SPRAY NOSTRIL-B ×2 (14:00→22:04)
[2023-11-18 14:34] LABS: COVID-19 Test Positive (Negative); IDNOW Serial# 55D5AD1C
--- NOTE | 2023-11-18 14:51 | PM.EVENT ---
Event Note Date of Service: 11/19/23 Event Note: Patient already seen and examined by the hospitalist team earlier this morning Seen and examined again-no other complaint except leg pain Physical exam: Unchanged from H&P Assessment plan coordinated in H&P note Right hip fracture-pain management benitez added pain medications, bowel regimen, incentive spirometry, surgery evaluation. Time Spent With Patient Time: Total time managing care of this patient today ____ minutes.
--- NOTE | 2023-11-18 15:16 | MHC.CM.PN ---
IMM 11/18. Pt lives at home self-care. DCP likely [facility], pending ortho recommendations and PT eval. Pt will likely transport via BLS is D/C to [facility]. [facility] pts first choice for [facility]. HCP completed with pt, now on file. PCP: Eliza TOVAR
--- NOTE | 2023-11-18 16:21 | PC.NURSE ---
pocketbook the patients daughter took her pocketbook home with money in it, this nurse was in the room when the patient told the daughter to take the pocketbook as well as the money. belongings list cant be edited.
[2023-11-18] MEDS: oxyCODONE HCl ER 10 MG TAB.ER.12H PO (19:42)
[2023-11-18] MEDS: Celecoxib 200 MG CAPSULE PO (19:42)
[2023-11-19] VITALS (13 sets, daily range): BP systolic 89–143; BP diastolic 46–87; PULSE 75–98; RESP 10–18; TEMP 36.2–37.2; O2SAT 92–99
[2023-11-19] MEDS: Lactated Ringers 1,000 ML 100 ML IVCONT ×2 (01:04→11:56)
[2023-11-19] MEDS: oxyCODONE HCl ER 10 MG TAB.ER.12H PO ×2 (07:55→20:51)
[2023-11-19] MEDS: Ipratropium Bromide Nas 0.03 % 30 ML SPRAY 2 SPRAY NOSTRIL-B (07:55)
[2023-11-19] MEDS: Pantoprazole Sodium 40 MG/10 ML VIAL IVPUSH (07:55)
[2023-11-19] MEDS: Celecoxib 200 MG CAPSULE PO ×2 (07:55→20:50)
[2023-11-19] MEDS: HYDROmorphone HCl 0.5 MG/0.5 ML SYRINGE IVPUSH ×2 (07:56→11:56)
--- NOTE | 2023-11-19 09:01 | MHC.CM.PN ---
EMR REVIEWED, PLAN FOR RIGHT FEMUR FX REPAIR TODAY, PT WILL NEED STR AND PREFERS [facility], REF SENT HOWEVER [facility] TYPICALLY DOES NOT TAKE COVID+ PT'S, CM AWAITING RESPONSE FROM SNF AND WILL DISCUSS W/PT AND FAMILY AND CONT TO FOLLOW DC NEEDS.
--- NOTE | 2023-11-19 14:27 | HO.ANESPROP2 ---
[facility] Active Problems Active Problems: All Active Problems (Updated 11/18/23 @ 05:40 by Maura Serrano MD) History of back surgery (Acute) Hypertension (Acute) Hyperlipidemia (Acute) Closed right femoral fracture (Acute) GERD (gastroesophageal reflux disease) (Acute) Irritable bowel syndrome with constipation (Acute) Past Medical History Medical History (Updated 11/18/23 @ 05:40 by Maura Serrano MD) Hypertension Hyperlipidemia GERD (gastroesophageal reflux disease) Irritable bowel syndrome with constipation Functional capacity: independent ambulation Patient : No Family History Family History Father No problems noted. Mother Diabetes Heart problem Family history of problems with anesthesia: No Surgical History Surgical History (Updated 11/18/23 @ 05:38 by Maura Serrano MD) History of back surgery H/O shoulder surgery Status post right knee replacement H/O esophagogastroduodenoscopy Hx of colonoscopy History of Problems with Anesthesia: No Social History Social History Household Members: None Housing: House Do you presently have visiting nurse or other home services: No Alcohol intake: never Patient Tobacco Use Status: Never used Tobacco Advance Directives Date on File: 11/18/23 service: No Meds Allergies Allergy/AdvReac Type Severity Reaction Status Date / Time penicillin V Allergy Unknown rash Verified 11/18/23 03:17 Penicillins Allergy Unknown RASH Verified 11/18/23 03:17 Active Medications: Current Medications Acetaminophen (Acetaminophen 325 Mg Tablet) 975 mg PO Q6H PRN PRN Reason: Pain, Mild (Pain Scale 1-3) Last Admin: 11/18/23 19:43 Dose: 975 mg Celecoxib (Celecoxib 200 Mg Capsule) 200 mg PO BID [facility] Last Admin: 11/19/23 07:55 Dose: 200 mg Hydromorphone HCl (Hydromorphone Hcl 0.5 Mg/0.5 Ml Syringe) 0.5 mg IVPUSH Q4H PRN; Protocol PRN Reason: Pain, Severe (Pain Scale 7-10) Last Admin: 11/19/23 11:56 Dose: 0.5 mg Lactated Ringer's (Lr) 1,000 mls @ 100 mls/hr IVCONT .Q10H [facility] Last Admin: 11/19/23 11:56 Dose: 100 mls/hr Ipratropium [place] (Ipratropium [place] Onel 0.03 % 30 Ml [place]) 2 spray NOSTRIL-B BID [facility] Last Admin: 11/19/23 07:55 Dose: 2 spray Ondansetron HCl (Ondansetron Hcl 4 Mg/2 Ml Vial) 4 mg IVPUSH Q6H PRN PRN Reason: Nausea and Vomiting Oxycodone HCl (Oxycodone Hcl Er 10 Mg Tab.Er.12h) 10 mg PO BID [facility] Last Admin: 11/19/23 07:55 Dose: 10 mg Oxycodone HCl (Oxycodone Hcl Immed Release 5 Mg Tablet) 10 mg PO Q4H PRN PRN Reason: Pain, Moderate(Pain Scale 4-6) Last Admin: 11/18/23 17:39 Dose: 10 mg Pantoprazole Sodium (Pantoprazole Sodium 40 Mg/10 Ml Vial) 40 mg IVPUSH DAILY [facility] Last Admin: 11/19/23 07:55 Dose: 40 mg Sodium Chloride (0.9 % Sodium Chloride Flush 3 Ml Syringe) 3 ml IVFLUSH QSHIFT [facility] Last Admin: 11/19/23 07:35 Dose: Not Given Home Medications Medication Instructions Recorded Confirmed Last Taken Type biotin 1 mg capsule 1 mg PO DAILY 05/27/21 11/18/23 11/17/23 History lisinopril 5 mg tablet 5 mg PO DAILY 05/27/21 11/18/23 11/17/23 History gabapentin 400 mg capsule 400 mg PO BID 11/18/23 11/18/23 11/17/23 History ipratropium bromide 21 mcg (0.03 2 spray intranasal BID Allergic 11/18/23 11/18/23 Unknown History %) nasal spray Symptoms lovastatin 20 mg tablet 20 mg PO BEDTIME 11/18/23 11/18/23 11/17/23 History [id number]-vwqvybdd-vgf C 250 3 tab PO DAILY 11/18/23 11/18/23 11/17/23 History mg-herbal no.124 11.66 mg chewable tablet (Airborne Gummy) Exam Height,Weight and Vital Signs: Height 5 ft 3 in Weight 75 kg Last Vital Signs Temp 98.3 F 11/19/23 11:19 Pulse 75 02/12/24 11:19 Resp 16 11/19/23 11:19 BP 137/63 11/19/23 11:19 Pulse Ox 94 11/19/23 11:19 O2 Del Method Room Air 11/19/23 11:19 Pertinent Lab Results Pertinent Lab Results: Laboratory Tests 11/18/23 11/18/23 11/18/23 03:45 05:19 08:12 WBC 8.7 10.1 RBC 3.95 L 3.61 L Hgb 11.9 L 10.8 L Hct 35.6 L 32.7 L MCV 90.1 90.6 MCH 30.1 29.9 MCHC 33.4 33.0 RDW 13.7 13.6 Plt Count 214 190 MPV 10.3 10.2 Absolute Nucleated RBC 0.000 0.000 Nucleated RBC % (auto) 0.0 0.0 PT 11.4 INR 0.9 Sodium 142 Potassium 4.1 Chloride 108 Carbon Dioxide 23 Anion Gap 15 BUN 23 H Creatinine 1.00 Estim Creat Clear Calc 41.3 Estimated GFR 53 Random Glucose 113 Calcium 8.9 D Troponin I High Sens 23.5 H 25.4 H Ethyl Alcohol < 10 COVID-19 ([facility]) COVID-19 Clin Com Blood Type O Negative Antibody Screen NEGATIVE 11/18/23 14:18 WBC RBC Hgb Hct MCV MCH MCHC RDW Plt Count MPV Absolute Nucleated RBC Nucleated RBC % (auto) PT INR Sodium Potassium Chloride Carbon Dioxide Anion Gap BUN Creatinine Estim Creat Clear Calc Estimated GFR Random Glucose Calcium Troponin I High Sens Ethyl Alcohol COVID-19 ([facility]) Positive A COVID-19 Clin Com See Note Blood Type Antibody Screen Airway Mallampati Class: II TM Dist: >3cm Neck ROM: Full Loose/Missing/Broken Teeth: No Heart: rrr Lungs: cta b/l Assessment and Plan Assessment Anesthesia Assessment: Anesthesia Plan Discussed and Chart Reviewed Final Anesthetic Review Family History of Problems with Anesthesia: No History of Problems with Anesthesia: No NPO: Yes ASA Class: II Final Preanesthetic Review: No Changes in Pt Med Stat, Consent Obtained/Reviewed and Anes Risks/Benef Reviewed Patient Risk: Intermediate Procedure Risk: Intermediate Anesthetic Plan Anesthetic Plan: GA
--- NOTE | 2023-11-19 14:29 | P.PNIM_ITS ---
Subjective Subjective Date of Service: 11/19/23 Interval History: femur fracture Review of Systems has leg pain denies any chest pain or shortness of breath or fever or chills Physical Exam 2 Vital Signs: Vital Signs: Last Vital Signs Temp 98.3 F 11/19/23 11:19 Pulse 75 11/19/23 11:19 Resp 16 11/19/23 11:19 BP 137/63 11/19/23 11:19 Pulse Ox 94 11/19/23 11:19 O2 Del Method Room Air 11/19/23 11:19 BMI result Body Mass Index 29.3 Appearance: Alert.? Oriented X3.? cvs: rrr, [id number] , no murmur res: clear to auscultation ,no rhonchii or wheezing abd: no rebound or guarding ,nt, bs present. ext pulses present , no cyanosis Right thigh pain. neuro: axo3 , nonfocal. Objective Data Active Medications Acetaminophen (Acetaminophen 325 Mg Tablet) 975 mg PO Q6H PRN PRN Reason: Pain, Mild (Pain Scale 1-3) Last Admin: 11/18/23 19:43 Dose: 975 mg Documented By: MAE Celecoxib (Celecoxib 200 Mg Capsule) 200 mg PO BID [facility] Last Admin: 11/19/23 07:55 Dose: 200 mg Documented By: JERRY Hydromorphone HCl (Hydromorphone Hcl 0.5 Mg/0.5 Ml Syringe) 0.5 mg IVPUSH Q4H PRN; Protocol PRN Reason: Pain, Severe (Pain Scale 7-10) Last Admin: 11/19/23 11:56 Dose: 0.5 mg Documented By: JERRY Lactated Ringer's (Lr) 1,000 mls @ 100 mls/hr IVCONT .Q10H [facility] Last Admin: 11/19/23 11:56 Dose: 100 mls/hr Documented By: JERRY Ipratropium [place] (Ipratropium [place] Onel 0.03 % 30 Ml [place]) 2 spray NOSTRIL-B BID [facility] Last Admin: 11/19/23 07:55 Dose: 2 spray Documented By: JERRY Ondansetron HCl (Ondansetron Hcl 4 Mg/2 Ml Vial) 4 mg IVPUSH Q6H PRN PRN Reason: Nausea and Vomiting Oxycodone HCl (Oxycodone Hcl Er 10 Mg Tab.Er.12h) 10 mg PO BID [facility] Last Admin: 11/19/23 07:55 Dose: 10 mg Documented By: ALEJANDRAARTShannon Oxycodone HCl (Oxycodone Hcl Immed Release 5 Mg Tablet) 10 mg PO Q4H PRN PRN Reason: Pain, Moderate(Pain Scale 4-6) Last Admin: 11/18/23 17:39 Dose: 10 mg Documented By: KIANNA Pantoprazole Sodium (Pantoprazole Sodium 40 Mg/10 Ml Vial) 40 mg IVPUSH DAILY [facility] Last Admin: 11/19/23 07:55 Dose: 40 mg Documented By: JERRY Sodium Chloride (0.9 % Sodium Chloride Flush 3 Ml Syringe) 3 ml IVFLUSH QSHIFT [facility] Last Admin: 11/19/23 07:35 Dose: Not Given Documented By: JERRY Non-Admin Reason: IV Running Labs 11/18/23 08:12 11/18/23 03:45 Labs: Laboratory Results - last 24 hr 11/18/23 14:18 COVID-19 ([facility]) Positive A COVID-19 Clin Com See Note Assessment and Plan (1) Closed right femoral fracture: Status: Acute Plan 83 years old woman admitted with: Right distal displaced femoral shaft fracture, closed. Admit to hospitalist service. Keep NPO. Pain control with morphine IV as needed. Start IV fluids. incentive emely chest physio. Orthopedic surgery for possible surgery Mild anemia likely secondary to above. Recheck H/H. Elevated troponin flat . No chest pain. Normal ECG. Hyperlipidemia. Continue lisinopril after surgery. Hyperlipidemia. Continue statin after surgery. GERD. Protonix IV. DVT prophylaxis: SCDs ongoing need hospitalization for right femoral fracture repair surgery and supportive therapy with pain medications. Quality Stroke Does the patient have a stroke diagnosis?: No VTE Prior VTE?: No VTE Risk Level:: Medical - moderate - high VTE Device Contraindication: N/A - Device Ordered VTE Drug Contraindication: Treatment Not Indicated
--- NOTE | 2023-11-19 15:06 | MHC.SHP ---
Pre-Procedural Eval Section A - 24 Hr Update-Section A only Date of Service: 11/19/23 The patient is an INPATIENT: No Changes since office visit: No Cold of Flu in the past 2 weeks, No New Medical Problems, No Changes in Medication and No Patient answered all questions The patient has been examined within 24 hours of the surgical procedure. The History & Physical has been completed within 30 days and I have reviewed it.: Yes Section B - Complete if H&P > 30 days Chief Complaint: Right Femur Fracture Allergies: Allergies Allergy/AdvReac Type Severity Reaction Status Date / Time penicillin V Allergy Unknown rash Verified 11/18/23 03:17 Penicillins Allergy Unknown RASH Verified 11/18/23 03:17 Plan I have reviewed the history and physical and performed a pertinent physical examination on my patient. No changes have occurred unless specified. Time Spent With Patient Time: Total time managing care of this patient today ____ minutes.
--- NOTE | 2023-11-19 17:33 | PM.OP ---
Brief Operative Note Date of Service: 11/19/23 Pre-op diagnosis: right distal femur periprosthetic fracture Post-op diagnosis: same Procedure: IMN retrograde right femur Implants: Styryker [id number] with 4 distal and 1 proximal interlocking screws Surgeon: Rico Friedman MD Anesthesia: GETA Was an Equipment Service Lead used for this Procedure?: Yes Equipment Service Lead: Mary Price Estimated blood loss (mL): 200 IV fluids (mL): 850 Pathology: none sent Condition: stable Disposition: PACU
[2023-11-20] VITALS: BP 118/64; PULSE 89; RESP 18; TEMP 36; O2SAT 92
[2023-11-20] MEDS: Lactated Ringers 1,000 ML 100 ML IVCONT ×3 (00:58→20:25)
[2023-11-20] MEDS: oxyCODONE HCl Immed Release 5 MG TABLET 10 MG PO ×2 (00:59→16:45)
[2023-11-20 03:28] VITALS: BP 112/56; PULSE 78; RESP 18; TEMP 36; O2SAT 95
[2023-11-20 07:32] VITALS: BP 117/60; PULSE 79; RESP 20; TEMP 36.3; O2SAT 98
[2023-11-20] MEDS: oxyCODONE HCl ER 10 MG TAB.ER.12H PO ×2 (08:02→20:21)
[2023-11-20] MEDS: 0.9 % Sodium Chloride Flush 3 ML SYRINGE IVFLUSH (08:02)
[2023-11-20] MEDS: Celecoxib 200 MG CAPSULE PO ×2 (08:02→20:21)
[2023-11-20] MEDS: Pantoprazole Sodium 40 MG/10 ML VIAL IVPUSH (08:02)
[2023-11-20] MEDS: Ipratropium Bromide Nas 0.03 % 30 ML SPRAY 2 SPRAY NOSTRIL-B ×2 (09:56→20:23)
--- NOTE | 2023-11-20 10:04 | P.PNOP_ITS ---
Subjective Subjective Date of Service: 11/20/23 Interval history: POD 1 s/p Right femur retrograde nail no overnight events resting in chair , worked with PT Physical Exam Vital Signs: Vital Signs: Last Vital Signs Temp 97.3 F 11/20/23 07:32 Pulse 79 11/20/23 07:32 Resp 20 11/20/23 07:32 BP 117/60 11/20/23 07:32 Pulse Ox 98 11/20/23 07:32 O2 Del Method Nasal Cannula 11/20/23 07:32 O2 Flow Rate 2 11/20/23 07:32 BMI result Body Mass Index 29.3 Const: General: cooperative, healthy appearing and no acute distress Resp: Effort & Inspection: normal respiratory effort and able to speak in complete sentences Cardio: Rate: regular rate Peripheral pulses: Peripheral pulses 2+ throughout GI: Palpation (GI): Soft to palpation Skin: General skin exam: no rashes or lesions noted Extrem: Other: bandage clean dry and intact. Meghan intact. No erythema or joint effusion. Calf supple nontender. Neurovascularly intact. Procedures Date of Service Date of Service: 11/20/23 Progress Note: A&P Assessment and plan (1) Closed right femoral fracture: Status: Acute Assessment and Plan: * Continue pain mgmnt * Begin lovenox for dvt ppx * begin PT/OT for Right femur retrograde nail- 25% wb * Dispo planning-Pending PT eval, pain mgmnt Time Spent With Patient Time: Total time managing care of this patient today ____ minutes. Quality Stroke Does the patient have a stroke diagnosis?: No VTE Prior VTE?: No VTE Risk Level:: Medical - moderate - high VTE Device Contraindication: N/A - Device Ordered VTE Drug Contraindication: Treatment Not Indicated
[2023-11-20 11:37] VITALS: BP 110/56; PULSE 94; RESP 18; TEMP 36.3; O2SAT 92
--- NOTE | 2023-11-20 13:19 | HO.POSTANES ---
Post Anesthesia Evaluation Post Anesthesia Evaluation Date of Service: 11/20/23 Vital Signs: Vital Signs Temp Pulse Resp BP Pulse Ox O2 Del Method O2 Flow Rate 11/20/23 11:37 97.4 F 94 18 110/56 L 92 Room Air 11/20/23 07:32 97.3 F 79 20 117/60 98 Nasal Cannula 2 11/20/23 03:28 96.8 F 78 18 112/56 L 95 Nasal Cannula 3 Anesthesia: General Mental Status: Awake Pain Control: Satisfactory Nausea/Vomiting: None Hydration: Adequate Anesthesia-Related Issues: No Anes. Related Issues
[2023-11-20] MEDS: Enoxaparin Sodium 40 MG/0.4 ML SYRINGE SUBCUT (14:13)
--- NOTE | 2023-11-20 14:31 | P.PNIM_ITS ---
Subjective Subjective Date of Service: 11/20/23 Interval History: s/p hip fracture doing well, pain is controlled. Physical Exam 2 Vital Signs: Vital Signs: Last Vital Signs Temp 97.4 F 11/20/23 11:37 Pulse 94 11/20/23 11:37 Resp 18 11/20/23 11:37 BP 110/56 L 11/20/23 11:37 Pulse Ox 92 11/20/23 11:37 O2 Del Method Room Air 11/20/23 11:37 O2 Flow Rate 2 11/20/23 07:32 BMI result Body Mass Index 29.3 Objective Data Active Medications Acetaminophen (Acetaminophen 325 Mg Tablet) 975 mg PO Q6H PRN PRN Reason: Pain, Mild (Pain Scale 1-3) Last Admin: 11/18/23 19:43 Dose: 975 mg Documented By: MAE Celecoxib (Celecoxib 200 Mg Capsule) 200 mg PO BID [facility] Last Admin: 11/20/23 08:02 Dose: 200 mg Documented By: ARTEM Enoxaparin Sodium (Enoxaparin Sodium 40 Mg/0.4 Ml Syringe) 40 mg SUBCUT Q24H [facility]CLUD[facility] Last Admin: 11/20/23 14:13 Dose: 40 mg Documented By: ARTEM Hydromorphone HCl (Hydromorphone Hcl 0.5 Mg/0.5 Ml Syringe) 0.5 mg IVPUSH Q4H PRN; Protocol PRN Reason: Pain, Severe (Pain Scale 7-10) Last Admin: 11/19/23 11:56 Dose: 0.5 mg Documented By: JERRY Lactated Ringer's (Lr) 1,000 mls @ 100 mls/hr IVCONT .Q10H [facility] Last Admin: 11/20/23 09:56 Dose: 100 mls/hr Documented By: ARTEM Ipratropium [place] (Ipratropium [place] Onel 0.03 % 30 Ml [place]) 2 spray NOSTRIL-B BID [facility] Last Admin: 11/20/23 09:56 Dose: 2 spray Documented By: ARTEM Ondansetron HCl (Ondansetron Hcl 4 Mg/2 Ml Vial) 4 mg IVPUSH Q6H PRN PRN Reason: Nausea and Vomiting Oxycodone HCl (Oxycodone Hcl Er 10 Mg Tab.Er.12h) 10 mg PO BID [facility] Last Admin: 11/20/23 08:02 Dose: 10 mg Documented By: ARTEM Oxycodone HCl (Oxycodone Hcl Immed Release 5 Mg Tablet) 10 mg PO Q4H PRN PRN Reason: Pain, Moderate(Pain Scale 4-6) Last Admin: 11/20/23 00:59 Dose: 10 mg Documented By: MARGARET Pantoprazole Sodium (Pantoprazole Sodium 40 Mg/10 Ml Vial) 40 mg IVPUSH DAILY [facility] Last Admin: 11/20/23 08:02 Dose: 40 mg Documented By: ARTEM Polyethylene Glycol (Polyethylene Glycol 3350 17 Gm Powd.Pack) 17 gm PO DAILY PRN PRN Reason: Constipation Sodium Chloride (0.9 % Sodium Chloride Flush 3 Ml Syringe) 3 ml IVFLUSH QSHIFT [facility] Last Admin: 11/20/23 08:02 Dose: 3 ml Documented By: ARTEM Labs 11/18/23 08:12 11/18/23 03:45 Assessment and Plan (1) Closed right femoral fracture: Status: Acute Plan 83 years old woman admitted with: Right hip fracture s/p repair on 11/19, doing well, pain control, PT/OT, lovenox for dvt prophylaxis Mild anemia likely secondary to above. Recheck H/H. Elevated troponin flat . No chest pain. Normal ECG. Hyperlipidemia. Continue lisinopril after surgery. Hyperlipidemia. Continue statin after surgery. GERD. Protonix IV. DVT prophylaxis: SCDs ongoing need hospitalization for right femoral fracture repair surgery and supportive therapy with pain medications. Quality Stroke Does the patient have a stroke diagnosis?: No VTE Prior VTE?: No VTE Risk Level:: Medical - moderate - high VTE Device Contraindication: N/A - Device Ordered VTE Drug Contraindication: Treatment Not Indicated
[2023-11-20 15:31] LABS: Hematocrit 25.1 % (37.0-47.0); Hemoglobin 8.3 g/dl (12.0-16.0); Mean Corpuscular HGB Conc 33.1 g/dl (31.0-35.0); Mean Corpuscular Hemoglobin 30.6 pg (27.0-33.0); Mean Corpuscular Volume 92.6 fL (80.0-98.0); Mean Platelet Volume 11.2 fL (9.4-12.3); Platelet Count 130 X10*3/uL (160-400); Red Blood Count 2.71 X10*6/uL (4.20-5.50); White Blood Count 8.4 X10*3/uL (4.8-10.8)
[2023-11-20 16:00] VITALS: BP 133/59; PULSE 89; RESP 18; TEMP 36.6; O2SAT 93
[2023-11-20 19:43] VITALS: BP 96/48; PULSE 95; RESP 22; TEMP 37.2; O2SAT 92
[2023-11-21] VITALS (7 sets, daily range): BP systolic 111–154; BP diastolic 59–77; PULSE 76–98; RESP 18–20; TEMP 36.1–37.1; O2SAT 92–97
[2023-11-21] MEDS: Lactated Ringers 1,000 ML 100 ML IVCONT (06:32)
--- NOTE | 2023-11-21 07:57 | PC.NURSE ---
pt refused morning meds including pain meds, stating she was not in pain. Pt was educated on reason meds were were being prescribed, pt was also told that physical therapy would be working with her and it was a good idea to medicate prior. Pt is also refusng blood draw type and screen. Pt was educated on importance and still refused. Pt is refusing to wear oxygen, stating she can breath better without it.
--- NOTE | 2023-11-21 08:05 | P.OP_ITS ---
Operative Note Operative Note Date of Service: 11/19/23 Narrative: Date of Service: 11/19/23 Pre-op diagnosis: right distal femur periprosthetic fracture Post-op diagnosis: same Procedure: IMN retrograde right femur Implants: Styryker [id number] with 4 distal and 1 proximal interlocking screws Surgeon: Rico Friedman MD Anesthesia: GETA Was an Frog Farmer used for this Procedure?: Yes Frog Farmer: Mary Price Estimated blood loss (mL): 200 IV fluids (mL): 850 Pathology: none sent Condition: stable Disposition: PACU Patient was brought to the operating room and placed supine on the fracture table. She was prepped and draped in standard sterile fashion and a time out was called to identify proper site, proper procedure and IV antibiotics per weight were administered. I began by flexing the knee up and making a small 1 cm incision between the distal pole of the patella and the tibial tubercle directly midline. Using lateral and AP fluoro I placed the guidewire into the femur through the open box of the femoral prosthesis. I then placed a tissue retractor and I over-reamed with a 12.5 opening reamer. A ball tipped guidewire was ten placed across the fracture. This was a long oblique fracture and the bone quality was relatively good. With the fracture in a reduced position, I was able to pass a 13.5 reamer up the femoral canal to the level of the lesser with chatter. I then measured and placed a 300x12 mm nail. Using the targeting guide 4 distal screws were placed through the nail. Using perfect [place] technique 1 proximal interlocking screw was placed. Final radiographs showed excellent positioning of the hardware and fracture alignment. I irrigated copiously and then closed with absorbable sutures and skin yulisa. Patient was then placed in sterile dressing and extubated. She was brought to the recovery room in stable condition. There were no known complications.
[2023-11-21] MEDS: dexAMETHasone sod phosphate 4 MG/ML VIAL 6 MG IVPUSH (10:36)
[2023-11-21 11:24] LABS: Hematocrit 24.5 % (37.0-47.0); Mean Corpuscular HGB Conc 32.7 g/dl (31.0-35.0); Mean Corpuscular Volume 91.8 fL (80.0-98.0); Mean Platelet Volume 10.9 fL (9.4-12.3); Platelet Count 134 X10*3/uL (160-400); Red Blood Count 2.67 X10*6/uL (4.20-5.50); Red Cell Distribution Width 14.1 % (11.0-16.0); White Blood Count 8.1 X10*3/uL (4.8-10.8)
--- NOTE | 2023-11-21 11:49 | HO.PM.IMPN ---
Subjective Subjective Date of Service: 11/21/23 Interval History: Patient noted to be hypoxic today, O2 less than 88 on room air and seemed confused Physical Exam Vital Signs: Vital Signs: Last Vital Signs Temp 98.3 F 11/21/23 11:43 Pulse 93 11/21/23 11:43 Resp 19 11/21/23 11:43 BP 120/60 11/21/23 11:43 Pulse Ox 92 11/21/23 07:19 O2 Del Method Nasal Cannula 11/21/23 11:43 O2 Flow Rate 2 11/21/23 11:43 BMI result Body Mass Index 29.3 Const: Other: General: AO X 3, no acute distress Resp: CTA bilateral CVS: S1,S2,RRR GI: +BS, NT, no distention Skin: wound d/c/i Neuro: motor grossly intact Psych: appropriate affect Objective Data Active Medications Acetaminophen (Acetaminophen 325 Mg Tablet) 975 mg PO Q6H PRN PRN Reason: Pain, Mild (Pain Scale 1-3) Last Admin: 11/18/23 19:43 Dose: 975 mg Documented By: MAE Celecoxib (Celecoxib 200 Mg Capsule) 200 mg PO BID [facility] Last Admin: 11/21/23 07:56 Dose: Not Given Documented By: CHRISTOPHER Non-Admin Reason: Patient Refused Dexamethasone Sodium Phosphate (Dexamethasone Sod Phosphate 4 Mg/Ml Vial) 6 mg IVPUSH DAILY [facility] Last Admin: 11/21/23 10:36 Dose: 6 mg Documented By: CHRISTOPHER Enoxaparin Sodium (Enoxaparin Sodium 40 Mg/0.4 Ml Syringe) 40 mg SUBCUT Q24H [facility] Last Admin: 11/20/23 14:13 Dose: 40 mg Documented By: ARTEM Hydromorphone HCl (Hydromorphone Hcl 0.5 Mg/0.5 Ml Syringe) 0.5 mg IVPUSH Q4H PRN; Protocol PRN Reason: Pain, Severe (Pain Scale 7-10) Last Admin: 11/19/23 11:56 Dose: 0.5 mg Documented By: JERRY Ipratropium [place] (Ipratropium [place] Onel 0.03 % 30 Ml [place]) 2 spray NOSTRIL-B BID [facility] Last Admin: 11/21/23 08:03 Dose: Not Given Documented By: CHRISTOPHER Non-Admin Reason: Patient Refused Ondansetron HCl (Ondansetron Hcl 4 Mg/2 Ml Vial) 4 mg IVPUSH Q6H PRN PRN Reason: Nausea and Vomiting Oxycodone HCl (Oxycodone Hcl Er 10 Mg Tab.Er.12h) 10 mg PO BID [facility] Last Admin: 11/21/23 07:56 Dose: Not Given Documented By: CHRISTOPHER Non-Admin Reason: Patient Refused Oxycodone HCl (Oxycodone Hcl Immed Release 5 Mg Tablet) 10 mg PO Q4H PRN PRN Reason: Pain, Moderate(Pain Scale 4-6) Last Admin: 11/20/23 16:45 Dose: 10 mg Documented By: CARRIE Polyethylene Glycol (Polyethylene Glycol 3350 17 Gm Powd.Pack) 17 gm PO DAILY PRN PRN Reason: Constipation Sodium Chloride (0.9 % Sodium Chloride Flush 3 Ml Syringe) 3 ml IVFLUSH QSHIFT [facility] Last Admin: 11/21/23 07:57 Dose: Not Given Documented By: CHRISTOPHER Non-Admin Reason: IV Running Labs 11/21/23 11:03 11/18/23 03:45 Labs: Laboratory Results - last 24 hr 11/20/23 11/21/23 14:58 11:03 MCV 92.6 91.8 MCH 30.6 30.0 MCHC 33.1 32.7 RDW 14.0 14.1 Plt Count 130 L D 134 L MPV 11.2 10.9 Absolute Nucleated RBC 0.000 0.000 Nucleated RBC % (auto) 0.0 0.0 Assessment and Plan (1) Closed right femoral fracture: Status: Acute Plan 83 years old woman admitted with: Right hip fracture s/p repair on 11/19, doing well, pain control, PT/OT, lovenox for dvt prophylaxis Covid + on 11/18 and now hypoxix -add Dexamethasone and Remdesevir for 3 days Metabolic encephalopathy--likely from hypoxia, O2 Anemia related to hip fracture, H/H above transfusion treshold, monitor Elevated troponin flat . No chest pain. Normal ECG. Hyperlipidemia. Continue lisinopril after surgery. Hyperlipidemia. Continue statin after surgery. GERD. Protonix IV. DVT prophylaxis: SCDs need for inpt: acute hypoxic respi failure d/t covid, and post op care ongoing need hospitalization for right femoral fracture repair surgery and supportive therapy with pain medications. Quality Stroke Does the patient have a stroke diagnosis?: No VTE Prior VTE?: No VTE Risk Level:: Medical - moderate - high VTE Device Contraindication: N/A - Device Ordered VTE Drug Contraindication: Treatment Not Indicated
--- NOTE | 2023-11-21 14:14 | MHC.CM.PN ---
EMR reviewed and per MD rounds, pt is not medically cleared for D/C due to management of covid-19 infection and post-op care, pt hypoxic requiring supplemental O2, and starting on remdesivir. CM will continue to follow. [facility] for pts D/C to [facility].
[2023-11-21] MEDS: Enoxaparin Sodium 40 MG/0.4 ML SYRINGE SUBCUT (15:34)
[2023-11-21] MEDS: Remdesivir 200 MG in 0.9 % Sodium Chloride 210 ML 105 MG IV (15:34)
[2023-11-21] MEDS: 0.9 % Sodium Chloride Flush 3 ML SYRINGE IVFLUSH (15:35)
[2023-11-21 21:11] LABS: Glucose, Whole Blood 150 mg/dL (60-115)
[2023-11-21] MEDS: Celecoxib 200 MG CAPSULE PO (21:54)
[2023-11-21] MEDS: Acetaminophen 325 MG TABLET 975 MG PO (21:54)
[2023-11-21] MEDS: Ipratropium Bromide Nas 0.03 % 30 ML SPRAY 2 SPRAY NOSTRIL-B (22:41)
[2023-11-22] VITALS (9 sets, daily range): BP systolic 133–164; BP diastolic 60–86; PULSE 72–86; RESP 16–20; TEMP 36.2–36.9; O2SAT 94–98
[2023-11-22] MEDS: 0.9 % Sodium Chloride Flush 3 ML SYRINGE IVFLUSH ×3 (02:39→22:26)
--- NOTE | 2023-11-22 09:03 | P.PNOP_ITS ---
Subjective Subjective Date of Service: 11/22/23 Interval history: POD3 s/p right femure retrograde nail Patient is resting in bed comfortably No overnight events Pain is managed P.T./O.T. refused yesterday No additional complaints Physical Exam Vital Signs: Vital Signs: Last Vital Signs Temp 97.2 F 11/22/23 08:00 Pulse 81 11/22/23 08:00 Resp 20 11/22/23 08:00 BP 147/75 H 11/22/23 08:00 Pulse Ox 98 11/22/23 08:00 O2 Del Method Nasal Cannula 11/22/23 08:00 O2 Flow Rate 2 11/22/23 08:00 BMI result Body Mass Index 29.3 Const: General: cooperative, healthy appearing and no acute distress Resp: Effort & Inspection: normal respiratory effort and able to speak in complete sentences Cardio: Rate: regular rate Peripheral pulses: Peripheral pulses 2+ throug hout GI: Palpation (GI): Soft to palpation Skin: Lesions: no lesions Rashes: no rashes Extrem: Other: right femur dressing is c/d/i. Able to dorsi/plantar flex. Calf is supple and nontender. Sensation intact. Pedal pulse intact. Procedures Date of Service Date of Service: 11/22/23 Progress Note: A&P Assessment and plan (1) Closed right femoral fracture: Status: Acute Plan Continue pain mgmnt Continue dvt ppx Continue PT/OT for right femure retrograde IM Nail - 25% WB status Dispo planning-PT/OT, pain mgmnt, rehab placement Time Spent With Patient Time: Total time managing care of this patient today ____ minutes. Quality Stroke Does the patient have a stroke diagnosis?: No VTE Prior VTE?: No VTE Risk Level:: Medical - moderate - high VTE Device Contraindication: N/A - Device Ordered VTE Drug Contraindication: Treatment Not Indicated
[2023-11-22 09:06] LABS: Hematocrit 22.3 % (37.0-47.0); Hemoglobin 7.4 g/dl (12.0-16.0); Mean Corpuscular HGB Conc 33.2 g/dl (31.0-35.0); Mean Corpuscular Hemoglobin 30.1 pg (27.0-33.0); Mean Corpuscular Volume 90.7 fL (80.0-98.0); Mean Platelet Volume 11.6 fL (9.4-12.3); Platelet Count 148 X10*3/uL (160-400); Red Blood Count 2.46 X10*6/uL (4.20-5.50); Red Cell Distribution Width 14.1 % (11.0-16.0); White Blood Count 6.7 X10*3/uL (4.8-10.8)
[2023-11-22] MEDS: Celecoxib 200 MG CAPSULE PO ×2 (10:28→22:27)
[2023-11-22] MEDS: oxyCODONE HCl ER 10 MG TAB.ER.12H PO ×2 (10:28→22:26)
[2023-11-22] MEDS: Ipratropium Bromide Nas 0.03 % 30 ML SPRAY 2 SPRAY NOSTRIL-B ×2 (10:29→22:28)
[2023-11-22] MEDS: dexAMETHasone sod phosphate 4 MG/ML VIAL 6 MG IVPUSH (10:29)
[2023-11-22 10:47] LABS: Anion Gap 10 (12-20)
[2023-11-22 10:49] LABS: Blood Urea Nitrogen 18 mg/dL (9-16); Carbon Dioxide 28 mmol/L (22-29); Chloride 110 mmol/L (96-108); Creatinine Clr Calc Pharmacy 52.3; Estimated Glomerular Filt Rate > 60; Glucose Random 94 mg/dL (60-115); Potassium 3.4 mmol/L (3.3-5.1); Sodium 145 mmol/L (135-145)
--- NOTE | 2023-11-22 11:19 | MHC.CM.PN ---
EMR REVIEWED, P/T DISTAL FEMUR FX/REPAIR AND COVID19, PER HOSPITALIST PT HYPOXIC AND NOT YET READY FOR DC, SNF'S FOLLOWING UPDATED AND CM WILL CONT TO FOLLOW DC NEEDS.
--- NOTE | 2023-11-22 13:06 | HO.PM.IMPN ---
Subjective Subjective Date of Service: 11/22/23 Interval History: No confusion, hypoxia resolved, H/H is down Physical Exam Vital Signs: Vital Signs: Last Vital Signs Temp 98.5 F 11/22/23 11:38 Pulse 85 11/22/23 11:38 Resp 20 11/22/23 11:38 BP 150/60 H 11/22/23 11:38 Pulse Ox 98 11/22/23 11:38 O2 Del Method Nasal Cannula 11/22/23 11:38 O2 Flow Rate 2 11/22/23 11:38 BMI result Body Mass Index 29.3 Const: Other: General: AO X 3, no acute distress Resp: CTA bilateral CVS: S1,S2,RRR GI: +BS, NT, no distention Skin: wound d/c/i Neuro: motor grossly intact Psych: appropriate affect Objective Data Active Medications Acetaminophen (Acetaminophen 325 Mg Tablet) 975 mg PO Q6H PRN PRN Reason: Pain, Mild (Pain Scale 1-3) Last Admin: 11/21/23 21:54 Dose: 325 mg Documented By: CARRIE Celecoxib (Celecoxib 200 Mg Capsule) 200 mg PO BID [facility] Last Admin: 11/22/23 10:28 Dose: 200 mg Documented By: TEE Dexamethasone Sodium Phosphate (Dexamethasone Sod Phosphate 4 Mg/Ml Vial) 6 mg IVPUSH DAILY [facility] Last Admin: 11/22/23 10:29 Dose: 6 mg Documented By: TEE Enoxaparin Sodium (Enoxaparin Sodium 40 Mg/0.4 Ml Syringe) 40 mg SUBCUT Q24H [facility] Last Admin: 11/21/23 15:34 Dose: 40 mg Documented By: CARRIE Hydromorphone HCl (Hydromorphone Hcl 0.5 Mg/0.5 Ml Syringe) 0.5 mg IVPUSH Q4H PRN; Protocol PRN Reason: Pain, Severe (Pain Scale 7-10) Last Admin: 11/19/23 11:56 Dose: 0.5 mg Documented By: JERRY Remdesivir 100 mg/ Sodium (Chloride) 230 mls @ 115 mls/hr IV Q24H [facility] Stop: 11/23/23 15:59 Ipratropium Chloride (Ipratropium Chloride Oenl 0.03 % 30 Ml [place]) 2 spray NOSTRIL-B BID [facility] Last Admin: 11/22/23 10:29 Dose: 2 spray Documented By: TEE Ondansetron HCl (Ondansetron Hcl 4 Mg/2 Ml Vial) 4 mg IVPUSH Q6H PRN PRN Reason: Nausea and Vomiting Oxycodone HCl (Oxycodone Hcl Er 10 Mg Tab.Er.12h) 10 mg PO BID [facility] Last Admin: 11/22/23 10:28 Dose: 10 mg Documented By: TEE Oxycodone HCl (Oxycodone Hcl Immed Release 5 Mg Tablet) 10 mg PO Q4H PRN PRN Reason: Pain, Moderate(Pain Scale 4-6) Last Admin: 11/20/23 16:45 Dose: 10 mg Documented By: CARRIE Polyethylene Glycol (Polyethylene Glycol 3350 17 Gm Powd.Pack) 17 gm PO DAILY PRN PRN Reason: Constipation Sodium Chloride (0.9 % Sodium Chloride Flush 3 Ml Syringe) 3 ml IVFLUSH QSHIFT [facility] Last Admin: 11/22/23 10:30 Dose: 3 ml Documented By: TEE Labs 11/22/23 08:16 11/22/23 10:21 Labs: Laboratory Results - last 24 hr 11/21/23 11/22/23 11/22/23 21:02 08:16 10:21 MCV 90.7 MCH 30.1 MCHC 33.2 RDW 14.1 Plt Count 148 L MPV 11.6 Absolute Nucleated RBC 0.000 Nucleated RBC % (auto) 0.0 Anion Gap 10 L Estim Creat Clear Calc 52.3 Estimated GFR > 60 POC Glucose 150 H Random Glucose 94 Calcium 8.0 L D Assessment and Plan (1) Closed right femoral fracture: Status: Acute Plan 83 years old woman admitted with: Right hip fracture s/p repair on 11/19, doing well, pain control, PT/OT, lovenox for dvt prophylaxis Covid + on 11/18 w/ hypoxia on 11/21 -Dexamethasone until hypoxia resolves and Remdesevir for 3 days Metabolic encephalopathy--likely from hypoxia, O2 improved with O2 ABLA Anemia related to hip fracture, H/H trending down, transfuse 1 unit Elevated troponin flat . No chest pain. Normal ECG. Hyperlipidemia. Continue lisinopril after surgery. Hyperlipidemia. Continue statin after surgery. GERD. Protonix IV. DVT prophylaxis: SCDs, Lovenox need for inpt: acute hypoxic respi failure d/t covid, and post op care ongoing need hospitalization for right femoral fracture repair surgery and supportive therapy with pain medications. Quality Stroke Does the patient have a stroke diagnosis?: No VTE Prior VTE?: No VTE Risk Level:: Medical - moderate - high VTE Device Contraindication: N/A - Device Ordered VTE Drug Contraindication: Treatment Not Indicated
[2023-11-22] MEDS: Remdesivir 100 MG in 0.9 % Sodium Chloride 230 ML 115 MG IV (16:56)
[2023-11-22] MEDS: Enoxaparin Sodium 40 MG/0.4 ML SYRINGE SUBCUT (16:56)
[2023-11-23 03:28] VITALS: BP 155/80; PULSE 79; RESP 20; TEMP 36.1; O2SAT 99
[2023-11-23 06:41] LABS: Hematocrit 24.4 % (37.0-47.0); Hemoglobin 8.1 g/dl (12.0-16.0); Mean Corpuscular HGB Conc 33.2 g/dl (31.0-35.0); Mean Corpuscular Hemoglobin 29.9 pg (27.0-33.0); Mean Platelet Volume 10.9 fL (9.4-12.3); NRBC Pct Auto 0.4 /100WBC (0.0-0.2); Platelet Count 141 X10*3/uL (160-400); Red Blood Count 2.71 X10*6/uL (4.20-5.50); Red Cell Distribution Width 14.8 % (11.0-16.0); White Blood Count 8.3 X10*3/uL (4.8-10.8)
[2023-11-23 07:56] VITALS: BP 162/75; PULSE 69; RESP 19; TEMP 37; O2SAT 97
[2023-11-23] MEDS: Celecoxib 200 MG CAPSULE PO (08:43)
[2023-11-23] MEDS: dexAMETHasone sod phosphate 4 MG/ML VIAL 6 MG IVPUSH (08:43)
[2023-11-23] MEDS: oxyCODONE HCl ER 10 MG TAB.ER.12H PO (08:44)
[2023-11-23] MEDS: 0.9 % Sodium Chloride Flush 3 ML SYRINGE IVFLUSH (08:45)
[2023-11-23 08:54] VITALS: BP 162/75; PULSE 69; O2SAT 97
--- NOTE | 2023-11-23 10:44 | MHC.CM.PN ---
Addendum entered by Agueda Sosa RN 11/23/23 12:42: imm 11/22/23, pt discharging to [facility] at 4pm, CM contacted pt's son Chase at [phone]. Original Note: ANTIC PT WILL BE MEDICALLY CLEARED FOR DC IF TOLERATES BEING OFF O2, CM HAS SENT MESSAGE TO [facility] AND AWAITING TO HEAR IF THEY CAN TAKE HER TODAY, CM RECEIVED CALL FROM PT'S SON/HCP [facility] AND [facility] UPDATED AND PLAN AND CM WILL CALL CHASE at [phone] ONCE PLAN IS CONFIRMED.
[2023-11-23 11:26] VITALS: BP 162/80; PULSE 79; RESP 20; TEMP 36.2; O2SAT 92
[2023-11-23] MEDS: Remdesivir 100 MG in 0.9 % Sodium Chloride 230 ML 115 MG IV (14:08)
--- NOTE | 2023-11-23 15:16 | P.DS_ITS ---
DS: Providers Provider Date of Service: 11/23/23 Date of admission: 11/18/23 04:43 Primary care physician: Eliza Ibrahim NP Consults: 11/18/23 07:27 Consult to Orthopedics Routine Consulting Provider: [facility] Reason for consultation: right femur fracture Has provider been notified: No Attending physician on discharge: Tonja Wright Discharging clinician: Gladis Akers DS: Diagnosis Discharge Diagnosis (1) Closed right femoral fracture: Status: Acute DS: Summary Hospital Course Hospital Course: From H&P on the day of admission Elaine Junior is 83 years old woman with past medical history significant for hypertension and hypercholesterolemia was brought to the emergency department after she sustained a mechanical fall (while getting up off the couch). She landed on her right side. She does complain of right thigh pain. Denies head trauma. Denies any symptoms such as dizziness, shortness on breath, chest or palpitations before or after falling down. She also denies headache, fever or chills. She denies any cardiopulmonary, gastrointestinal or genitourinary symptoms. No history of CAD, diabetes or congestive heart failure reported. Denied alcohol abuse, tobacco smoking or illicit drug use. Has history of right knee replacement surgery. In the ED, vital signs are stable. Blood workup showed normal creatinine. There are no electrolyte imbalances. Hemoglobin is 11.9 (it was 12.10 Aug 2022). Troponin is slightly elevated, 23.5. Right knee x-ray shows displaced fracture of the distal femoral shaft. ECG shows NSR (HR 83 bpm) with acute ischemic changes. ED tx: APAP 975 mg PO, morphine 4 mg IV, Zofran 4 mg IV. Right hip fracture s/p repair on 11/19 doing well, orthopedic surgury followed during admission. She will be discharged to SNF for further care. Covid + on 11/18 w/ hypoxia on 11/21 Treated with dexamethasone and remdesivir, hypoxia resolved. Metabolic encephalopathy- likely from hypoxia. Resolved and is currently alert and oriented x3 ABLA Anemia related to hip fracture, H/H trending down. Improved with 1 unit of blood Elevated troponin flat . No chest pain. Normal ECG. Hyperlipidemia. Continue lisinopril after surgery. Hyperlipidemia. Continue statin after surgery. Time Attestation Total time managing care of this patient today: 35 mintues. Discharge coordination time: Greater than 30 minutes Quality: Safe Use of Opioids Does Pt have an Active Cancer Diagnosis on the Problem List?: No Quality: Stroke Does the patient have a stroke diagnosis?: No Physical Exam Vital Signs: Vital Signs: Last Vital Signs Temp 97.1 F 11/23/23 11:26 Pulse 79 11/23/23 11:26 Resp 20 11/23/23 11:26 BP 162/80 H 11/23/23 11:26 Pulse Ox 92 11/23/23 11:26 O2 Del Method Room Air 11/23/23 11:26 O2 Flow Rate 2 11/23/23 07:56 BMI result Body Mass Index 29.3 Const: General: comfortable, no acute distress, alert and awake Orientation/consciousness: patient oriented x3 Resp: Effort & Inspection: normal respiratory effort and able to speak in complete sentences Auscultation: clear to auscultation bilaterally Neuro: General: patient oriented x3 Extrem: Other: clean/dry/intact bandage DS: Data Data Completed and Pending Labs on day of discharge: Laboratory Results - last 24 hr 11/21/23 11/23/23 11:03 06:18 WBC 8.3 RBC 2.71 L Hgb 8.1 L Hct 24.4 L MCV 90.0 MCH 29.9 MCHC 33.2 RDW 14.8 Plt Count 141 L MPV 10.9 Absolute Nucleated RBC 0.030 H Nucleated RBC % (auto) 0.4 H Blood Type O Negative Antibody Screen NEGATIVE Crossmatch See Detail Discharge Plan Discharge Anticipated Discharge Date/Time: 11/23/23 11:49 Patient Disposition: Xfer SNF Discharge Diagnosis: Right hip fracture status post repair COVID-19 infection Metabolic encephalopathy Acute blood loss anemia related to hip fracture Referrals: [facility] [Outside] - 1 Week (SHORT TERM REHAB) Eliza Ibrahim NP [Primary Care Provider] - 1 Week Mary Price PA-C [Physician [employer]] - 12/06/23 10:45 am (12/06/23 at 10:45am ) Discharge Medications: New polyethylene glycol 3350 17 gram Powder In Packet 17 g PO DAILY Qty: 30 0RF oxycodone [OxyContin] 10 mg Tablet,Oral Only,Ext.Rel.12 Hr 10 mg PO BID Qty: 10 0RF Rx Instructions: Partial Fill upon patient request. celecoxib 200 mg Capsule 200 mg PO DAILY Qty: 10 0RF acetaminophen 325 mg Tablet 975 mg PO Q6H PRN (Reason: Pain, Mild (Pain Scale 1-3)) Qty: 30 0RF enoxaparin 40 mg/0.4 mL Syringe 40 mg subcut Q24H Qty: 4 0RF omeprazole 20 mg capsule,delayed release(DR/EC) 20 mg PO DAILY Qty: 30 0RF Continued lovastatin 20 mg tablet 20 mg PO BEDTIME gabapentin 400 mg capsule 400 mg PO BID ipratropium bromide 21 mcg (0.03 %) spray,non-aerosol 2 spray intranasal BID [place] Gummy 250-11.66 mg Tablet,Chewable 3 tab PO DAILY lisinopril 5 mg tablet 5 mg PO DAILY biotin 1 mg capsule 1 mg PO DAILY Discharge Orders: Discharge Order (Routine); Ordered 11/23/23 Ordered By: Tonja Wright Diet: Advance to usual diet Activity on Discharge: As tolerated Stand Alone Forms: Patient Portal Discharge page Activity Restrictions/Additional Instructions: * 25% weightbearing RLE * NWB ROM as tolerated beginning 2 weeks post op * Dressing changes as needed * No tub bath or shower-Keep dressing clean, dry and intact * Follow up with orthopedics in 2 weeks Care Plan Goals: Continue pain medications as prescribed/physical therapy as tolerated Continue lovenox for 28 days Avoid constipation Incentive spirometry as tolerated Health Concerns: Hypertension Plan of Treatment: Outpatient follow-up with primary care physician and Orthopedic surgery in 2 weeks Assessment: As above.
== END 2023-11-23 15:34 | disposition skilled nursing facility (03) | DRG 480 ==
LOC: HO.ED 05:16 → HO.EDOVER 06:02 → HO.IMC 15:31
PROVIDERS: Internal Medicine; Orthopaedic Surgery; Admitting Provider Internal Medicine; Emergency Provider Internal Medicine; PCP Nurse Practitioner Family; Visit Provider Hospitalist
PROC: 0QHB36Z Insertion of Intramedullary Internal Fixation Device into Right Lower Femur, Percutaneous Approach (ICD-10-PCS; principal; 2023-11-19 15:30)
DX: S72.341A Displaced spiral fracture of shaft of right femur, initial encounter for closed fracture (principal); G93.41 Metabolic encephalopathy; U07.1 COVID-19; J96.01 Acute respiratory failure with hypoxia; D62 Acute posthemorrhagic anemia; M97.11XA Periprosthetic fracture around internal prosthetic right knee joint, initial encounter; W19.XXXA Unspecified fall, initial encounter; I10 Essential (primary) hypertension; E78.00 Pure hypercholesterolemia, unspecified; K21.9 Gastro-esophageal reflux disease without esophagitis; Z79.899 Other long term (current) drug therapy
CPT/HCPCS: 36415; 71045; 73560; 73700; 80048; 80307; 82947; 84484; 85027; 85610; 86850; 86900; 86901; 86923; 87635; 93005; 97110; 97163; 97167; 97530; 99285; 99499; C1713; C1769; C9113; J0131; J0248; J1100; J1170; J1650; J2270; J2371; J2405; J2704; J2795; J3010; J7120; P9016

== ENCOUNTER → 2023-11-18 03:37 | Outpatient (BNV) | payer MEDICARE, SELFPAY | PROVIDERS: Admitting Provider Internal Medicine; Emergency Provider Internal Medicine; PCP Nurse Practitioner Family; Visit Provider Internal Medicine | DX: I10 Essential (primary) hypertension (principal) | CPT/HCPCS: 93010 ==

== ENCOUNTER → 2023-11-18 03:59 | Outpatient (BNV) | payer MEDICARE, SELFPAY | PROVIDERS: Emergency Provider Internal Medicine; PCP Nurse Practitioner Family; Visit Provider Internal Medicine | DX: S72.341A Displaced spiral fracture of shaft of right femur, initial encounter for closed fracture (principal) | CPT/HCPCS: 99223; 99232; 99239 ==

== ENCOUNTER → 2023-11-18 04:43 | Outpatient (BNV) | payer MEDICARE, SELFPAY | PROVIDERS: Admitting Provider Internal Medicine; Emergency Provider Internal Medicine; PCP Nurse Practitioner Family; Visit Provider Physician Assistant | DX: S72.341A Displaced spiral fracture of shaft of right femur, initial encounter for closed fracture (principal) | CPT/HCPCS: 27506; 99024; 99222 ==

== ENCOUNTER 2023-12-06 10:33 | Outpatient (AMB) | payer MEDICARE, SELFPAY ==
--- NOTE | 2023-12-06 11:27 | A.OFFVIS_ITS ---
Intake Intake Visit Reasons: PO-s/p right femur Retrograde nail 11/19 Intake Note: Elaine is a 83 year old female who presents today for a post op appointment s/p right femur Retrograde nail 11/19/23 NE. Allergies penicillin V Allergy (Unknown, Verified 12/06/23 11:27) rash Penicillins Allergy (Unknown, Verified 12/06/23 11:27) RASH HPI PO-s/p right femur Retrograde nail 11/19 HPI Details 83-year-old female who presents in the [facility] today 17 days status post right femur retrograde IM nailing, which was performed on 11/19/[address] Friedman. Patient was asked for permission to speak to her son who is her healthcare proxy. Consent was given. [facility] Medical History (Updated 12/01/23 @ 00:02 by Xi Mascorro) Hypertension Hyperlipidemia GERD (gastroesophageal reflux disease) Irritable bowel syndrome with constipation Surgical History History of back surgery H/O shoulder surgery Status post right knee replacement H/O esophagogastroduodenoscopy Hx of colonoscopy Family History Father No problems noted. Mother Diabetes Heart problem Social History Household Members: None Housing: House Do you presently have visiting nurse or other home services: No Alcohol intake: never Patient Tobacco Use Status: Never used Tobacco Advance Directives Date on File: 11/18/23 service: No Review of Systems Const All systems reviewed & are unremarkable except as noted in HPI and below Physical Exam Const General: cooperative, healthy appearing and no acute distress Resp Effort & Inspection: normal respiratory effort and able to speak in complete sentences Cardio Rate: regular rate Peripheral pulses: Peripheral pulses 2+ throughout GI Palpation (GI): Soft to palpation Skin Lesions: no lesions Rashes: no rashes Extrem Other: Right femur: Incision site is clean, dry, intact. No surrounding erythema or drainage. No signs of infection. Able to dorsiflex and plantarflex. Sensation intact. Pedal pulse intact. Assessment & Plan Assessment & Plan (1) Fracture of distal end of right femur: Comment: Right femur retrograde IM nailing 11/19/2023 NE Code(s): S72.401A - Unspecified fracture of lower end of right femur, initial encounter for closed fracture Qualifiers: Encounter type: subsequent encounter Fracture healing: with routine healing Fracture morphology: unspecified fracture morphology Fracture type: closed Qualified Code(s): S72.401D - Unspecified fracture of lower end of right femur, subsequent encounter for closed fracture with routine healing Plan Ms. Junior is an 83-year-old female who presents in the office today 17 days status post right femur retrograde IM nailing, which was performed on 11/19/[address] Friedman. Patient was asked for permission to speak to her son who is her healthcare proxy. Consent was given. [place] were removed and steri-stripes were applied. The patient may progress in physical therapy to weight bear as tolerated with the use of a walker and to work on glute, quad, core strengthening and gait training. Follow up will be in 4 weeks with repeat x-rays, or sooner if needed. Of note: The patient?s son, Junaid, who is her healthcare proxy requested a call from me to discuss his mother?s appointment today. A call was placed to her proxy but he did not answer at this time. A message was left on the machine for him to give me a call back. Healthcare Proxy: Junaid, son. Phone number: [phone] X-rays of the right femur which were obtained while in the office today and were reviewed by me, Mary Price PA-C, revealed intact orthopedic hardware with routine healing. Orders: Orders XR femur RT 2V Today S72.91XA - Unspecified fracture of right femur, initial encounter for closed fracture Patient Instructions: Scribed by Ada Burrows, medical leader, for Mary Price PA-C on 12/06/2023 at 10:38 am, EST. Coding Level of Care Code Global (21802) Diagnoses Closed fracture of distal end of right femur with routine healing, unspecified fracture morphology, subsequent encounter S72.401D Encounter type: subsequent encounter Fracture healing: with routine healing Fracture morphology: unspecified fracture morphology Fracture type: closed
== END 2023-12-06 12:10 | disposition home or self-care (01) ==
PROVIDERS: PCP Nurse Practitioner Family; Visit Provider Physician Assistant
DX: S72.401D Unspecified fracture of lower end of right femur, subsequent encounter for closed fracture with routine healing (principal)
CPT/HCPCS: 99024

== ENCOUNTER 2023-12-06 16:45 | Outpatient (REF) | payer MEDICARE, SELFPAY ==
--- NOTE | ~2023-12-06 | XR_ITS ---
EXAMINATION: XR FEMUR, RIGHT CLINICAL INFORMATION: Right femur fracture. COMPARISON: November 18, 2023. TECHNIQUE: AP and lateral views of the right femur were obtained. FINDINGS: The patient is status post placement of intramedullary fixation zelda and screws across an oblique fracture involving the distal diaphysis/metaphysis of the right femur. Fracture fragments appear in gross anatomic alignment. There is a question of early callus formation, suboptimally visualized. Overlying surgical skin yulisa. The patient is also status post right total knee arthroplasty. No evidence of hardware loosening or fracture. Vascular calcification. XR/XR femur RT 2V IMPRESSION: Findings as above.
== END 2023-12-06 16:46 | disposition home or self-care (01) ==
LOC: HO.HOSX 16:45
PROVIDERS: Visit Provider Physician Assistant
DX: S72.401D Unspecified fracture of lower end of right femur, subsequent encounter for closed fracture with routine healing (principal); X58.XXXD Exposure to other specified factors, subsequent encounter
CPT/HCPCS: 73552; 99212

== ENCOUNTER 2024-01-03 09:31 | Outpatient (REF) | payer MEDICARE, SELFPAY ==
--- NOTE | ~2024-01-03 | XR_ITS ---
EXAMINATION: XR FEMUR, RIGHT CLINICAL INFORMATION: Follow-up distal femoral fracture. COMPARISON: Prior radiographs, most recently 12/06/2003. TECHNIQUE: AP and lateral views of the right femur were obtained. FINDINGS: There is mild bony demineralization. There is stable alignment of a mildly displaced oblique fracture of the distal right femoral shaft. There is an intact distal femoral intramedullary zelda, with fixator screws. No hardware failure or loosening is seen. There is an intact right hip total arthroplasty. There is right greater trochanteric calcific bursitis. There is mild degenerative change of the right hip. XR/XR femur RT 2V IMPRESSION: There is stable well-maintained alignment status-post ORIF of a distal right femoral shaft fracture. No hardware failure or loosening is seen. There is no significant new callus formation
== END 2024-01-03 09:32 | disposition home or self-care (01) ==
LOC: HO.HOSX 09:31
PROVIDERS: Visit Provider Physician Assistant
DX: S72.401D Unspecified fracture of lower end of right femur, subsequent encounter for closed fracture with routine healing (principal); X58.XXXD Exposure to other specified factors, subsequent encounter; Z98.890 Other specified postprocedural states
CPT/HCPCS: 73552; 99212

== ENCOUNTER 2024-01-03 14:16 | Outpatient (AMB) | payer MEDICARE, SELFPAY ==
--- NOTE | 2024-01-03 14:33 | MHC.OFFVIS ---
Intake Intake Visit Reasons: PO - rt femur Retrograde nail 11/19/23 NE Intake Note: Elaine is a 83 year old female who presents today for a post op appointment s/p right femur Retrograde nail 11/19/23 NE. Patient reports having soreness since surgery. She finds relief when she is laying down or at night. Patient report she is doing well with PT. Allergies penicillin V Allergy (Unknown, Verified 12/06/23 11:27) rash Penicillins Allergy (Unknown, Verified 12/06/23 11:27) RASH HPI PO - rt femur Retrograde nail 11/19/23 NE HPI Details 83-year-old female who presents in the office today 6 weeks status post right femur retrograde IM nailing, which was performed on 11/19/[address] Friedman. I last saw the patient in the office on 12/06/2023. At this time the patient was educated that she may progress in physical therapy to weight bear as tolerated with the use of a walker and to work on glute, quad, core strengthening and gait training. While in the office today the patient reports having some soreness since surgery. She states she finds relief with laying down. She confirms participation in physical therapy and states it is going well. [facility] Medical History (Updated 12/01/23 @ 00:02 by Xi Mascorro) Hypertension Hyperlipidemia GERD (gastroesophageal reflux disease) Irritable bowel syndrome with constipation Surgical History History of back surgery H/O shoulder surgery Status post right knee replacement H/O esophagogastroduodenoscopy Hx of colonoscopy Family History Father No problems noted. Mother Diabetes Heart problem Social History Household Members: None Housing: House Do you presently have visiting nurse or other home services: No Alcohol intake: never Patient Tobacco Use Status: Never used Tobacco Advance Directives Date on File: 11/18/23 service: No Review of Systems Const All systems reviewed & are unremarkable except as noted in HPI and below Physical Exam Const General: cooperative, healthy appearing and no acute distress Resp Effort & Inspection: normal respiratory effort and able to speak in complete sentences Cardio Rate: regular rate Peripheral pulses: Peripheral pulses 2+ throughout GI Palpation (GI): Soft to palpation Skin Lesions: no lesions Rashes: no rashes Extrem Other: Right femur: Incision site is clean, dry, and intact. No surrounding erythema or drainage. NO signs of infection. ROM is 0-90 degrees. NVI. Assessment & Plan Assessment & Plan (1) Fracture of distal end of right femur: Comment: Right femur retrograde IM nailing 11/19/2023 NE Code(s): S72.401A - Unspecified fracture of lower end of right femur, initial encounter for closed fracture Qualifiers: Encounter type: subsequent encounter Fracture healing: with routine healing Fracture morphology: unspecified fracture morphology Fracture type: closed Qualified Code(s): S72.401D - Unspecified fracture of lower end of right femur, subsequent encounter for closed fracture with routine healing Plan Ms. Junior is an 83-year-old female who presents in the office today 6 weeks status post right femur retrograde IM nailing, which was performed on 11/19/[address] Friedman. I last saw the patient in the office on 12/06/2023. At this time the patient was educated that she may progress in physical therapy to weight bear as tolerated with the use of a walker and to work on glute, quad, core strengthening and gait training. While in the office today the patient reports having some soreness since surgery. She states she finds relief with laying down. She confirms participation in physical therapy and states it is going well. Patient is ambulating with a walker. She should continue to work with physical therapy. Follow up will be in 6 weeks, or sooner if needed. X-rays of the right femur which were obtained while in the office today and were reviewed by me, Mary Price PA-C, revealed intact orthopedic hardware with routine healing. Orders: Orders XR femur RT 2V Today S72.401A - Unspecified fracture of lower end of right femur, initial encounter for closed fracture Patient Instructions: Scribed by Ada Burrows biomedical equipment tech, for Mary Price PA-C on 01/03/2024 at 2:25 pm, EST. Coding Level of Care Code Global (12501) Diagnoses Closed fracture of distal end of right femur with routine healing, unspecified fracture morphology, subsequent encounter S72.401D Encounter type: subsequent encounter Fracture healing: with routine healing Fracture morphology: unspecified fracture morphology Fracture type: closed
== END 2024-01-03 14:57 | disposition home or self-care (01) ==
PROVIDERS: PCP Nurse Practitioner Family; Visit Provider Physician Assistant
DX: S72.401D Unspecified fracture of lower end of right femur, subsequent encounter for closed fracture with routine healing (principal)
CPT/HCPCS: 99024

== ENCOUNTER 2024-02-14 09:44 | Outpatient (AMB) | payer MEDICARE, SELFPAY ==
--- NOTE | 2024-02-14 10:09 | A.OFFVIS_ITS ---
Intake Visit Reasons: PO rt femur Retrograde nail 11/19/23 NE-w/xray Intake Note: Elaine is a 83 year old female who presents today for a post op appointment s/p right femur Retrograde nail 11/19/23 NE. Patient reports she is doing well and she uses a cane to help with her balance. She states that she notices some improvements when working with P.T. Allergies penicillin V Allergy (Unknown, Verified 02/14/24 10:11) rash Penicillins Allergy (Unknown, Verified 02/14/24 10:11) RASH HPI HPI PO rt femur Retrograde nail 11/19/23 NE-w/xray: Details: 83-year-old female who presents in the office today 3 months status post right femur retrograde IM nailing, which was performed on 11/19/[address] Friedman. I last saw the patient in the office on 01/03/2024 when the patient was instructed to continue to work with physical therapy. While in the office today the patient reports she is doing well. She confirms some improvement with working with PT. She states she has been working outside in the garden. Patient ambulating with a walker for balance. She was told by PT she is not ready to ambulate without the assistance of a cane or cane due to being ?wobbly?. She also confirms the use of a cane. Patient confirms she was able to kneel prior to surgery but is not able to do that at this time. Patient reports recently having pneumonia and she had to undergo a CAT scan. Patient has a trip planned for next month to [facility]. [facility] Medical History (Updated 12/01/23 @ 00:02 by Xi Mascorro) Hypertension Hyperlipidemia GERD (gastroesophageal reflux disease) Irritable bowel syndrome with constipation Surgical History History of back surgery H/O shoulder surgery Status post right knee replacement H/O esophagogastroduodenoscopy Hx of colonoscopy Family History Father No problems noted. Mother Diabetes Heart problem Social History Household Members: None Housing: House Do you presently have visiting nurse or other home services: No Alcohol intake: never Patient Tobacco Use Status: Never used Tobacco Advance Directives Date on File: 11/18/23 service: No Review of Systems Const All systems reviewed & are unremarkable except as noted in HPI and below Physical Exam Const General: cooperative, healthy appearing and no acute distress Resp Effort & Inspection: normal respiratory effort and able to speak in complete sentences Cardio Rate: regular rate Peripheral pulses: Peripheral pulses 2+ throughout GI Palpation (GI): Soft to palpation Skin Lesions: no lesions Rashes: no rashes Extrem Other: Right femur: Incision sites are clean, dry, and intact; completely healed. No signs of infection. Full ROM of the knee. NVI. Assessment & Plan Assessment & Plan (1) Fracture of distal end of right femur: Comment: Right femur retrograde IM nailing 11/19/2023 NE Code(s): S72.401A - Unspecified fracture of lower end of right femur, initial encounter for closed fracture Category: Surgical Qualifiers: Encounter type: subsequent encounter Fracture healing: with routine healing Fracture morphology: unspecified fracture morphology Fracture type: closed Qualified Code(s): S72.401D - Unspecified fracture of lower end of right femur, subsequent encounter for closed fracture with routine healing Plan Ms. Junior is a 83-year-old female who presents in the office today 3 months status post right femur retrograde IM nailing, which was performed on 11/19/[address] Friedman. I last saw the patient in the office on 01/03/2024 when the patient was instructed to continue to work with physical therapy. While in the office today the patient reports she is doing well. She confirms some improvement with working with PT. She states she has been working outside in the garden. Patient ambulating with a walker for balance. She was told by PT she is not ready to ambulate without the assistance of a cane or cane due to being ?wobbly?. She also confirms the use of a cane. Patient confirms she was able to kneel prior to surgery but is not able to do that at this time. Patient reports recently having pneumonia and she had to undergo a CAT scan. Patient has a trip planned for next month to [facility]. Discussed with the patient that she needs the strength to move from the gas pedal to brake before she can drive. An [facility] update was given stating this should be extended for 2 additional months and will be re-evaluated at that time. Her son will contact the office to tell us what paperwork the patient needs. Follow up will be in 2 months, or sooner if needed. X-rays of the right femur which were obtained while in the office today and were reviewed by me, Mary Price PA-C, revealed intact orthopedic hardware with routine healing. Orders: Orders XR femur RT 2V Today S72.341A - Displaced spiral fracture of shaft of right femur, initial encounter for closed fracture, S72.401D - Unspecified fracture of lower end of right femur, subsequent encounter for closed fracture with routine healing Patient Instructions: Scribed by Ada Burrows, director of medical education, for Mary Price PA-C on 02/14/2024 at 9:49 am, EST. Coding Level of Care Code Global (99591) Diagnoses Closed fracture of distal end of right femur with routine healing, unspecified fracture morphology, subsequent encounter S72.401D Encounter type: subsequent encounter Fracture healing: with routine healing Fracture morphology: unspecified fracture morphology Fracture type: closed
== END 2024-02-14 10:52 | disposition home or self-care (01) ==
PROVIDERS: PCP Nurse Practitioner Family; Visit Provider Physician Assistant
DX: S72.401D Unspecified fracture of lower end of right femur, subsequent encounter for closed fracture with routine healing (principal)
CPT/HCPCS: 99024

== ENCOUNTER 2024-02-14 10:16 | Outpatient (REF) | payer MEDICARE, SELFPAY ==
--- NOTE | ~2024-02-14 | XR_ITS ---
EXAMINATION: XR FEMUR, RIGHT CLINICAL INFORMATION: Unspecified fracture of lower end of right femur. COMPARISON: 01/09/2024. TECHNIQUE: 4 views including AP and lateral views of the right femur were obtained. FINDINGS: The bones are diffusely demineralized. Redemonstration of mildly displaced oblique fracture of the distal right femoral shaft. There has been some interval bridging callus formation, although fracture line is still visible. Distal femoral intramedullary zelda with fixator screws and total knee arthroplasty redemonstrated. Hardware appears intact. Mild degenerative changes in the right hip. Degenerative changes in the imaged lower lumbar spine. XR/XR femur RT 2V IMPRESSION: Status post ORIF of distal right femoral shaft fracture. Hardware appears intact. Redemonstration of mildly displaced oblique fracture of the distal right femoral shaft. There has been some interval bridging callus formation, although fracture line is still visible.
== END 2024-02-14 10:17 | disposition home or self-care (01) ==
LOC: HO.HOSX 10:16
PROVIDERS: Visit Provider Physician Assistant
DX: S72.341A Displaced spiral fracture of shaft of right femur, initial encounter for closed fracture (principal); S72.401D Unspecified fracture of lower end of right femur, subsequent encounter for closed fracture with routine healing; Y93.9 Activity, unspecified; Y92.9 Unspecified place or not applicable; Y99.9 Unspecified external cause status
CPT/HCPCS: 73552; 99212

== ENCOUNTER 2024-04-15 08:59 | Outpatient (AMB) | payer MEDICARE, SELFPAY ==
--- NOTE | 2024-04-15 09:25 | MHC.OFFVIS ---
Intake Visit Reasons: OV-rt femur Retrograde nail 11/19/23 NE Intake Note: Elaine is a 84 year old female who presents today for a follow up appointment s/p right femur Retrograde nail 11/19/23 NE. Patient reports she is doing well, PT is going very good she is noticing improvements in her mobility. She has some discomfort when sitting and getting up from the sitting position. Allergies penicillin V Allergy (Unknown, Verified 04/15/24 09:26) rash Penicillins Allergy (Unknown, Verified 04/15/24 09:26) RASH HPI HPI OV-rt femur Retrograde nail 11/19/23 NE: Details: Ms. Junior is an 84-year-old female who presents to the office today s/p right femur retrograde nail on 11/19/23. Overall the patient reports that she is doing very well. She has ambulating with the use of a cane. She continues to attend physical therapy. She does report some mild weakness in the right quad area since her injury. She continues to work with therapy on this. [facility] Medical History (Updated 12/01/23 @ 00:02 by Xi Mascorro) Hypertension Hyperlipidemia GERD (gastroesophageal reflux disease) Irritable bowel syndrome with constipation Surgical History History of back surgery H/O shoulder surgery Status post right knee replacement H/O esophagogastroduodenoscopy Hx of colonoscopy Family History Father No problems noted. Mother Diabetes Heart problem Social History Household Members: None Housing: House Do you presently have visiting nurse or other home services: No Alcohol intake: never Patient Tobacco Use Status: Never used Tobacco Advance Directives Date on File: 11/18/23 service: No Review of Systems Const All systems reviewed & are unremarkable except as noted in HPI and below Physical Exam Const General: cooperative, healthy appearing and no acute distress Resp Effort & Inspection: normal respiratory effort and able to speak in complete sentences Cardio Rate: regular rate Peripheral pulses: Peripheral pulses 2+ throughout GI Palpation (GI): Soft to palpation Skin Lesions: no lesions Rashes: no rashes Extrem Other: Right femur: Incision sites are clean, dry, and intact; completely healed. No signs of infection. Full ROM of the knee. NVI. Assessment & Plan Assessment & Plan (1) Fracture of distal end of right femur: Comment: Right femur retrograde IM nailing 11/19/2023 NE Code(s): S72.401A - Unspecified fracture of lower end of right femur, initial encounter for closed fracture Category: Surgical Qualifiers: Encounter type: subsequent encounter Fracture healing: with routine healing Fracture morphology: unspecified fracture morphology Fracture type: closed Qualified Code(s): S72.401D - Unspecified fracture of lower end of right femur, subsequent encounter for closed fracture with routine healing (2) Closed right femoral fracture: Code(s): S72.91XA - Unspecified fracture of right femur, initial encounter for closed fracture Category: Medical Qualifiers: Encounter type: initial encounter Femur location: shaft Fracture alignment: displaced Fracture morphology: spiral Qualified Code(s): S72.341A - Displaced spiral fracture of shaft of right femur, initial encounter for closed fracture Plan Ms. Junior is an 84-year-old female who presents to the office today status post right femur retrograde nail performed on 11/19/[address] Friedman. Overall the patient is doing very well. She has ambulating with the use of a cane. She continues to attend physical therapy. She has noted some quad weakness and continues to work with therapy focusing on this. Overall, the patient is doing very well. She would like to return to work in June which I feel is a good goal for her. She feels that at this point in time her quad weakness is a concern for her to be on her feet for greater than 4 hours per day. I have given her return to work note for 06/08/2024. She will follow up with Orthopedics p.r.n. sooner if needed X-rays obtained in the office today reveal intact orthopedic hardware with routine healing of the right femur. Orders: Orders XR femur RT 2V Today S72.341A - Displaced spiral fracture of shaft of right femur, initial encounter for closed fracture, S72.401D - Unspecified fracture of lower end of right femur, subsequent encounter for closed fracture with routine healing Coding Level of Care Code Est Pt Level 3 (61219) Diagnoses Closed fracture of distal end of right femur with routine healing, unspecified fracture morphology, subsequent encounter S72.401D Encounter type: subsequent encounter Fracture healing: with routine healing Fracture morphology: unspecified fracture morphology Fracture type: closed Closed displaced spiral fracture of shaft of right femur, initial encounter S72.341A Encounter type: initial encounter Femur location: shaft Fracture alignment: displaced Fracture morphology: spiral
== END 2024-04-15 09:34 | disposition home or self-care (01) ==
PROVIDERS: PCP Nurse Practitioner Family; Visit Provider Physician Assistant
DX: S72.401D Unspecified fracture of lower end of right femur, subsequent encounter for closed fracture with routine healing (principal); S72.341A Displaced spiral fracture of shaft of right femur, initial encounter for closed fracture
CPT/HCPCS: 99213

== ENCOUNTER 2024-04-15 10:54 | Outpatient (REF) | payer MEDICARE, SELFPAY ==
--- NOTE | ~2024-04-15 | XR_ITS ---
EXAMINATION: XR FEMUR, RIGHT CLINICAL INFORMATION: Distal femur fracture, right. COMPARISON: 02/11/2024 TECHNIQUE: AP and lateral views of the right femur were obtained. FINDINGS: Retrograde intramedullary nail is in place with one proximal and 4 distal interlocking screws. Right total knee prosthesis is noted. Hardware appears intact without surrounding acute fractures. The oblique/spiral fracture of the distal femoral diaphysis is unchanged in alignment with increased bone formation at the fracture site. Probably bridging bone is suspected. Bones are osteopenic. 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 Calcific atherosclerosis. XR/XR femur RT 2V IMPRESSION: Progressive healing of the distal femoral diaphyseal fracture in unchanged alignment. No acute osseous findings.
== END 2024-04-15 10:55 | disposition home or self-care (01) ==
LOC: HO.HOSX 10:54
PROVIDERS: Visit Provider Physician Assistant
DX: S72.341A Displaced spiral fracture of shaft of right femur, initial encounter for closed fracture (principal); Y93.9 Activity, unspecified; Y92.9 Unspecified place or not applicable; Y99.9 Unspecified external cause status
CPT/HCPCS: 73552; 99212

== ENCOUNTER 2024-04-25 14:00 | Outpatient (RCR) | payer MEDICARE, SELFPAY ==
--- NOTE | 2024-03-21 14:24 | MHC.PT.EP ---
[facility] [place] Office [place] Office [place] Office [address] Alexandra Dhaliwal [address] [phone] F: [phone] F: [phone] F: [phone] F: [phone] Physical Therapy Plan of Care Date of Evaluation: 03/21/24 Date of Surgery: Diagnosis: fx distal R femur periprosthetic fx 11/19 s/p IMN retrograde R femur Assessment: 83 y/o female s/p R femur retrograde IMN 11/19/23. She fell on 11/18 resulting in periprosthetic fx above old TKA. She went to [facility] ED and underwent R femur retrograde IMN on 11/19/23. She had STR for 3 weeks and then home PT since surgery, working on walking and exercises (hip abd/ext/HR). She was ambulating with walker and has transitioned to the cane for the past 3 weeks. States she has difficulty with prolonged walking, prolonged standing, stairs, and going into her flower garden. She also reports several falls when ambulating in her garden since surgery. Examination shows decreased hip/knee ROM, decreased LE strength, impaired gait pattern, and impaired balance. Recommend PT 2x/week for 5 weeks to address impairments, implement HEP, and optimize functional mobility Frequency and Duration: The patient will be seen 2x/week for 5 weeks Short Term Goals: 3 weeks I with HEP Pt will demonstrate R knee flexion to 116 Care Transition Manager Goals: 5 weeks I with HEP and self management of sx Pt will be able to ambulate with LRAD > 10 minutes with no evidence of imbalance Pt will be able to balance on foam > 30 seconds with no LOB Pt will be tawanna to ascend/ descend stairs in step to pattern with pain < 3/10 Treatment Plan: Modalities to reduce pain, spasms and effusion. Manual therapy to restore motion and function. Therapeutic exercise to improve strength and flexibility. Neuromuscular re-education for posture and balance. Therapeutic activities to return to functional activities of daily living. Electronically signed by: Mague Mensah PT Please sign and return to therapist. Thank you for your referral.
--- NOTE | 2024-04-14 14:51 | MHC.PT.PR ---
[facility] [place] Office [place] Office [place] Office [address] Alexandra Dhaliwal [address] [phone] F: [phone] F: [phone] F: [phone] F: [phone] Physical Therapy Progress Note Diagnosis: fx distal R femur periprosthetic fx 11/19 s/p IMN retrograde R femur Date of Surgery: Date of Evaluation: 03/21/24 Treatments to Date: 7 Cancellations to Date: 0 No Shows to Date: 0 Subjective: Feeling sore in R anterior thigh today - thinks she may have overdone it this past weekend with cleaning, chores and walking. It has not been sore here previously and she feels that it is making her limp slightly, She wonders when she can kneel again and if she can RTW at [place] which requires 4 hours of standing Pain Score and Location: 3-4 R thigh Objective Measures: Knee ROM WFL Gait: scoliotic curve noted with R SB and L hip elevated, L hip IR, good hailey, uses cane, sometimes missteps over L foot Assessment: She has been making good progress with strength and functional mobility and her gait pattern is improving, however continue to recommend use of cane for safety at this time as she does misstep at times over her L foot. She had some increased soreness from increased activity over the weekend, however it appears to be muscular in nature and educated pt on pacing chores and daily activities. She sees ortho tomorrow and will ask about RTW, when she can return to kneeling and their thoughts on assistive device. PT Plan: Continue with PT Frequency and Duration: The patient will be seen anticipate d/c in 3 visits Treatment Plan: Therapeutic Exercise Dynamic Therapeutic Activities Neuromuscular Re-ed Manual Therapies Taping Gait Home Exercise Program Patient Education Hot or Cold Pack Reviewed/ Agreed with Student Documentation: Therapist: Thank you once again for your referral.
--- NOTE | 2024-04-25 14:54 | MHC.PT.DC ---
[facility] [place] Office [place] Office [place] Office [address] Alexandra Dhaliwal [address] [phone] F: [phone] F: [phone] F: [phone] F: [phone] Physical Therapy Discharge Report Diagnosis: fx distal R femur periprosthetic fx 11/19 s/p IMN retrograde R femur Date of Surgery: Date of Evaluation: 03/21/24 Date of Discharge: 04/25/24 Treatments to Date: 10 Cancellations to Date: 0 No Shows to Date: 0 Discharge Status: Achieved Goals Improved Function Independent with HEP Discharge Summary: Pt reports overall feeling better except sometimes quad gets tight after exercises. She is now ambulating without cane and able to ascend/ descend stairs in step through pattern. She has met all goals and is appropriate for d/c at this time. We reviewed HEP and no further questions. Electronically signed by: Mague Mensah PT Please sign and return to therapist. Thank you for your referral.
== END 2024-04-25 14:54 | disposition home or self-care (01) ==
LOC: HO.PTCHIC 14:00
PROVIDERS: PCP Nurse Practitioner Family; Visit Provider Physician Assistant
DX: S72.401D Unspecified fracture of lower end of right femur, subsequent encounter for closed fracture with routine healing (principal)
CPT/HCPCS: 97110; 97112; 97116; 97162; 97530

== ENCOUNTER 2024-07-22 08:02 | Outpatient (AMB) | payer MEDICARE, SELFPAY ==
[2024-07-22 08:05] VITALS: BP 132/88; PULSE 59; O2SAT 98
--- NOTE | 2024-07-22 08:05 | MHC.OFFWIV ---
Intake Vital Signs 07/22/24 08:05 Weight 161 lb 6 oz BP 132/88 Blood Pressure Location Rt brachial Position Sitting Pulse 59 Pulse Source Pulse Oximeter Pulse Oximetry (%) 98 Oxygen Delivery Method Room Air Intake Visit Reasons: EP-rt leg bug bite Intake Note: Patient here because she was cleaning her yard and was bit by something and is still sore after almost 4 weeks. Patient Tobacco Use Status: Never used Tobacco Allergies penicillin V Allergy (Unknown, Verified 07/22/24 08:07) rash Penicillins Allergy (Unknown, Verified 07/22/24 08:07) RASH Do you need a note to return to daycare/school/sports/work: No HPI HPI Comments History of Present Illness Details Patient is an 84-year-old female complaining of a persistent bug bite on her right hip. She states about 4 weeks ago she was in her garden working and she thinks she got bit by a bumblebee. She is concerned the stinger is still in the wound. She states it is a little bit itchy and scabbed over and just does not seem to be healing. She denies any warmth in the area or drainage [facility] Medical History (Updated 07/22/24 @ 08:18 by Belia Avina PA-C) Hypertension Hyperlipidemia GERD (gastroesophageal reflux disease) Irritable bowel syndrome with constipation Surgical History History of back surgery H/O shoulder surgery Status post right knee replacement H/O esophagogastroduodenoscopy Hx of colonoscopy Family History Father No problems noted. Mother Diabetes Heart problem Social History Household Members: None Housing: House Do you presently have visiting nurse or other home services: No Alcohol intake: never Patient Tobacco Use Status: Never used Tobacco Advance Directives Date on File: 11/18/23 service: No Review of Systems Const All systems reviewed & are unremarkable except as noted in HPI and below Physical Exam Vital Signs: Last Vital Signs Pulse 59 07/22/24 08:05 BP 132/88 07/22/24 08:05 Pulse Ox 98 07/22/24 08:05 Oxygen Delivery Method Room Air 07/22/24 08:05 Const General: cooperative, healthy appearing, comfortable, no acute distress and well developed Orientation/consciousness: patient oriented x3 Limitations: no limitations HEENT Head: Yes normal to inspection Neck Neck: Yes normal visual inspection and Yes supple Skin Other: Right hip as a 0.75 cm scabbed over area with no warmth. No purulence but there is a central area of yellow. Very slight area of erythema surrounding the wound. Neuro General: patient oriented x3 Assessment & Plan Assessment & Plan (1) Nonhealing nonsurgical wound: Code(s): T14.8XXA - Other injury of unspecified body region, initial encounter Plan: Prescribed mupirocin cream because it looks like there could be a slight infection. Recommended if it does not heal and next week or 2, to follow up with her PCP. Plan see above Medications: New mupirocin 2% 1 appl topical TID 22 grams 0RF Coding Level of Care Code New Pt Level 3 (14716) Diagnoses Nonhealing nonsurgical wound T14.8XXA
== END 2024-07-22 08:48 | disposition home or self-care (01) ==
PROVIDERS: PCP Nurse Practitioner Family; Visit Provider Physician Assistant
DX: T14.8XXA Other injury of unspecified body region, initial encounter (principal)

== ENCOUNTER → 2024-07-22 08:02 | Outpatient (BNVA) | payer MEDICARE, SELFPAY | PROVIDERS: PCP Nurse Practitioner Family; Visit Provider Physician Assistant | DX: S80.861A Insect bite (nonvenomous), right lower leg, initial encounter (principal); W57.XXXA Bitten or stung by nonvenomous insect and other nonvenomous arthropods, initial encounter | CPT/HCPCS: 99202 ==

== ENCOUNTER 2024-08-20 14:00 | Outpatient (RCR) | payer MEDICARE, SELFPAY | END 2024-08-20 14:27 | disposition home or self-care (01) | LOC: HO.PTCHIC 14:00 | PROVIDERS: PCP Nurse Practitioner Family; Visit Provider Nurse Practitioner Family | DX: M54.9 Dorsalgia, unspecified (principal); R20.2 Paresthesia of skin | CPT/HCPCS: 97110; 97161 ==

== ENCOUNTER 2024-09-17 06:00 | Outpatient (RCR) | payer MEDICARE, SELFPAY | END 2024-12-26 08:11 | disposition home or self-care (01) | LOC: HO.PTCHIC 06:00 | PROVIDERS: PCP Nurse Practitioner Family; Visit Provider Nurse Practitioner Family | DX: M54.2 Cervicalgia (principal); M25.512 Pain in left shoulder; M25.511 Pain in right shoulder | CPT/HCPCS: 97110; 97140; 97163 ==

== ENCOUNTER 2024-09-23 09:22 | Outpatient (AMB) | payer MEDICARE, SELFPAY ==
--- NOTE | 2024-09-23 09:31 | A.OFFVIS_ITS ---
Vital Signs 09/23/24 09:31 Weight 161 lb 6 oz Intake Visit Reasons: New Prob - Right knee pain Intake Note: Elaine is a 84 year old female who presents to the office today for right knee pain radiating down to superiorly to the ankle. Patient reports she fell about 3 weeks ago and wants to make sure she did not injure her right knee, s/p right total knee replacement done some time ago at [facility] by Dr. Fernando. Patient states her pain is mainly localized to her right del rosario. Hx of right femur Retrograde nail 11/19/23 NE. Allergies penicillin V Allergy (Unknown, Verified 09/23/24 09:31) rash Penicillins Allergy (Unknown, Verified 09/23/24 09:31) RASH HPI HPI New Prob - Right knee pain: Details: 84-year-old female who presents in the office today for an evaluation of right knee pain radiating down to superior to the ankle. I last saw the patient in the office on 04/15/24 for 5 months status post right femur retrograde nail performed on 11/19/[address] Friedman. She was provided with a return work note for 06/08/24 and discussed concerns regarding her quad weakness. While in the office today, the patient reports right knee pain that is mainly localized to her right [place] ros[place]. She states she had a fall 3 weeks ago. She wants to make sure she did not injure her right knee. She is status post right total knee replacement that was performed by Dr. Fernando at [facility]. [facility] Medical History (Updated 09/23/24 @ 09:46 by Mary Price PA-C) Hypertension Hyperlipidemia GERD (gastroesophageal reflux disease) Irritable bowel syndrome with constipation Surgical History History of back surgery H/O shoulder surgery Status post right knee replacement H/O esophagogastroduodenoscopy Hx of colonoscopy Family History Father No problems noted. Mother Diabetes Heart problem Social History Household Members: None Housing: House Do you presently have visiting nurse or other home services: No Alcohol intake: never Patient Tobacco Use Status: Never used Tobacco Advance Directives Date on File: 11/18/23 service: No Review of Systems Const All systems reviewed & are unremarkable except as noted in HPI and below Physical Exam Const General: cooperative, healthy appearing and no acute distress Resp Effort & Inspection: normal respiratory effort and able to speak in complete sentences Cardio Rate: regular rate Peripheral pulses: Peripheral pulses 2+ throughout GI Palpation (GI): Soft to palpation Skin Lesions: no lesions Rashes: no rashes Extrem Other: Right knee: Normal to inspection. Prior surgical incision sites were noted with no signs of infection. No ecchymosis, erythema, or joint effusion. Tenderness to palpation along the anterior aspect of the del rosario. No tenderness to palpation along the medial or lateral joint lines. Full knee extension and flexion. Negative Pedro's. Negative anterior drawer. NVI. Right ankle: Two small areas of superficial abrasion on the anterior aspect of the ankle with no signs of infection. No surrounding erythema. Assessment & Plan Assessment & Plan (1) Contusion of right tibia: Code(s): S80.11XA - Contusion of right lower leg, initial encounter Category: Medical Plan Ms. Junior is a 84-year-old female who presents in the office today for an evaluation of right knee pain radiating down to superior to the ankle. I last saw the patient in the office on 04/15/24 for 5 months status post right femur retrograde nail performed on 11/19/[address] Friedman. She was provided with a return work note for 06/08/24 and discussed concerns regarding her quad weakness. While in the office today, the patient reports right knee pain that is mainly localized to her right [place] ros[place]. She states she had a fall 3 weeks ago. She wants to make sure she did not injure her right knee. She is status post right total knee replacement that was performed by Dr. Fernando at [facility]. The patient can resume back to activities as tolerated. No indication of periprosthetic fracture or hardware loosening or hardware failure. Follow-up will be PRN, or sooner if needed. X-rays of the right knee, which were obtained while in the office today and were reviewed by me, Mary Price PA-C, revealed: Negative for acture fracture or dislocation. Intact orthopedic hardware. Orders: Orders XR knee RT 3V Today M25.569 - Pain in unspecified knee XR knee LT 1V Today M25.569 - Pain in unspecified knee Patient Instructions: Scribed by Shaniqua Ray, medical device, for Mary Price PA-C on 09/23/24 at 10:30 am EST. Coding Level of Care Code Est Pt Level 3 (73323) Diagnoses Contusion of right tibia S80.11XA
== END 2024-09-23 09:49 | disposition home or self-care (01) ==
PROVIDERS: PCP Nurse Practitioner Family; Visit Provider Physician Assistant
DX: S80.11XA Contusion of right lower leg, initial encounter (principal)
CPT/HCPCS: 99213

== ENCOUNTER 2024-09-23 11:06 | Outpatient (REF) | payer MEDICARE, SELFPAY ==
--- NOTE | ~2024-09-23 | XR_ITS ---
EXAMINATION: Bilateral knee radiographs CLINICAL INFORMATION: Pain in unspecified knee M25.569. COMPARISON: XR Left knee 02/15/2021 TECHNIQUE: 1 view of the bilateral knees FINDINGS: Status post right total knee arthroplasty and femoral fixation. No evidence of hardware complication. Moderate degenerative changes of the left medial compartment. Vascular calcifications bilaterally. Diffuse osteopenia. XR/XR knee LT 1V IMPRESSION: 1. Status post right total knee arthroplasty and femoral fixation. No evidence of hardware complication. 2. Moderate degenerative changes of the left medial compartment. Electronically signed by: Juan A Damon MD 09/30/2024 01:38 PM EST Workstation: [id number]
== END 2024-09-23 11:07 | disposition home or self-care (01) ==
LOC: HO.HOSX 11:06
PROVIDERS: Visit Provider Physician Assistant
DX: M25.561 Pain in right knee (principal); M25.562 Pain in left knee; S80.11XA Contusion of right lower leg, initial encounter
CPT/HCPCS: 73560; 73562; 99212

== ENCOUNTER 2024-09-26 08:01 | Outpatient (REF) | payer MEDICARE, SELFPAY ==
[2024-09-26 12:53] LABS: Influenza A PCR NEGATIVE (Negative); Influenza B PCR NEGATIVE (Negative); Resp Syncy Virus RNA Qual PCR NEGATIVE (Negative); SARS COV2 PCR INHOUSE NEGATIVE (Negative)
== END 2024-09-26 08:02 | disposition home or self-care (01) ==
LOC: HO.LAB 08:01
PROVIDERS: Physician Assistant; PCP Nurse Practitioner Family
DX: J06.9 Acute upper respiratory infection, unspecified (principal)
CPT/HCPCS: 0241U; 99212

== ENCOUNTER 2024-09-26 08:01 | Outpatient (AMB) | payer MEDICARE, SELFPAY ==
[2024-09-26 08:05] VITALS: BP 130/80; PULSE 101; TEMP 36.9; O2SAT 97
--- NOTE | 2024-09-26 08:05 | MHC.OFFWIV ---
Intake Vital Signs 09/26/24 08:05 Weight 164 lb BP 130/80 Blood Pressure Location Lt brachial Position Sitting Pulse 101 H Pulse Source Pulse Oximeter Temp 98.4 F Temp Source Oral Pulse Oximetry (%) 97 Oxygen Delivery Method Room Air Intake Visit Reasons: EP running nose, cough Intake Note: Patient here for runny nose and cough that has been present for 1 week. Patient Tobacco Use Status: Never used Tobacco Allergies penicillin V Allergy (Unknown, Verified 09/26/24 08:11) rash Penicillins Allergy (Unknown, Verified 09/26/24 08:11) RASH Do you need a note to return to daycare/school/sports/work: No HPI HPI Comments History of Present Illness Details History The patient is an 84-year-old female presenting with symptoms of an upper respiratory infection that started approximately a week and a half ago. The patient reports experiencing persistent coughing and a constantly dripping nose, which have been distressing and have impacted her ability to sleep at night. Additionally, the patient describes watering eyes but denies having any fever or ear pain. She acknowledges excessive coughing and has been taking kwnf-nvb-tkyjaiv cough medicines without significant relief. This morning, the patient experienced vomiting accompanied by phlegm production. Home testing for COVID-19 was performed, and the patient reports a negative result. The patient denies any history of asthma or chronic obstructive pulmonary disease. The patient's pulmonary symptoms were notably absent of shortness of breath or wheezing. She lives alone and denies recent exposure to others with similar symptoms. Physical Exam General: Cooperative, healthy appearing, comfortable and no acute distress Orientation/consciousness: Patient oriented x3 Limitations: No limitations Head: Normal to inspection Ears: Hearing grossly normal bilaterally, external ears normal and TM's normal bilaterally Nose: Normal external nose present, Normal nares present and Nasal discharge present Face and sinus: Normal facial exam and Yes sinuses nontender Mouth: Normal oral and palatal mucosa present and moist mucous membranes Throat: Yes tonsils normal, Yes uvula midline. Posterior oropharynx erythema Eyes: Appearance normal, both eyes and all related structures, Neck: Normal visual inspection Respiratory: Clear to auscultation bilaterally. Normal respiratory effort, able to speak in complete sentences, Actively coughing, no respiratory distress, not tachypneic, no tripod positioning and no use of accessory muscles Cardiovascular: Regular rate and rhythm. Normal S1 and S2 Skin: No rashes or lesions noted Neuro: Patient oriented x3 Extremities: Normal to inspection and Yes no clubbing, cyanosis or edema [facility] Medical History (Updated 09/26/24 @ 08:19 by Belia Avina PA-C) Hypertension Hyperlipidemia GERD (gastroesophageal reflux disease) Irritable bowel syndrome with constipation Surgical History History of back surgery H/O shoulder surgery Status post right knee replacement H/O esophagogastroduodenoscopy Hx of colonoscopy Family History Father No problems noted. Mother Diabetes Heart problem Social History Household Members: None Housing: House Do you presently have visiting nurse or other home services: No Alcohol intake: never Patient Tobacco Use Status: Never used Tobacco Advance Directives Date on File: 11/18/23 service: No Review of Systems Const All systems reviewed & are unremarkable except as noted in HPI and below Physical Exam Vital Signs: Last Vital Signs Temp 98.4 F 09/26/24 08:05 Pulse 101 H 09/26/24 08:05 BP 130/80 09/26/24 08:05 Pulse Ox 97 09/26/24 08:05 Oxygen Delivery Method Room Air 09/26/24 08:05 Assessment & Plan Assessment & Plan (1) URI, acute: Code(s): J06.9 - Acute upper respiratory infection, unspecified Plan: Plan - Prescribe Tessalon Perles benzonatate for symptomatic management of cough, with instructions to use primarily at night for relief. - Recommend azithromycin Z-Jaspreet to treat suspected bacterial pneumonia, due to its dual role as an antibiotic and anti-inflammatory. - Advise the use of Flonase nasal spray for nasal congestion as necessary. - Instruct the patient on the appropriate technique for steroid nasal spray application. - Discuss daily allergy medication as a potential adjunctive measure if symptoms persist. - Plan to contact the patient later to communicate the results of the flu, COVID, and RSV testing. Patient was informed and verbally consented to the use of an ambient scribe for clinic note documentation during this visit Orders: Orders SARS-CoV2/FLU/RSV Today J06.9 - Acute upper respiratory infection, unspecified Medications: New benzonatate 200 mg PO TID PRN 14 caps 0RF cough azithromycin For 250 mg dose pack: take 500 mg today (day 1), then 250 mg for 4 days (days 2-5) PO 6 tabs 0RF Coding Level of Care Code Est Pt Level 3 (84629) Diagnoses URI, acute J06.9
== END 2024-09-26 08:34 | disposition home or self-care (01) ==
PROVIDERS: PCP Nurse Practitioner Family; Visit Provider Physician Assistant
DX: J06.9 Acute upper respiratory infection, unspecified (principal)

== ENCOUNTER 2024-10-03 07:59 | Outpatient (AMB) | payer MEDICARE, SELFPAY ==
[2024-10-03 08:33] VITALS: BP 118/74; PULSE 60; TEMP 36.8; O2SAT 97
--- NOTE | 2024-10-03 08:33 | AM.OFFWIN_ITS ---
Intake Vital Signs 10/03/24 08:33 Weight 163 lb BP 118/74 Blood Pressure Location Rt brachial Position Sitting Pulse 60 Pulse Source Pulse Oximeter Temp 98.3 F Temp Source Oral Pulse Oximetry (%) 97 Oxygen Delivery Method Room Air Intake Visit Reasons: EP mucus, runny nose, cough/finished meds Intake Note: Patient here because she is still having runny nose, chest congestion after finishing antibiotics 3 days ago. Patient Tobacco Use Status: Never used Tobacco Allergies penicillin V Allergy (Unknown, Verified 10/03/24 08:35) rash Penicillins Allergy (Unknown, Verified 10/03/24 08:35) RASH Do you need a note to return to daycare/school/sports/work: No HPI EP mucus, runny nose, cough/finished meds HPI Details The patient is an 84-year-old female presenting with symptoms of an upper respiratory infection that started approximately two and a half weeks ago. She was seen at the [place] clinic here on 09/26 and started on Benzonatate and a Z- pack. She returns to the clinic today reporting persistent productive cough, chest congestion, runny nose, watery eyes. She has completed abx course Viral testing was performed previously and was negative for Covid/Flu/RSV. She denies fever but reports occasional chills. Denies shortness of breath. Has purchased some OTC cold medication but was unsure if she should take it [facility] Medical History Hypertension Hyperlipidemia GERD (gastroesophageal reflux disease) Irritable bowel syndrome with constipation Surgical History History of back surgery H/O shoulder surgery Status post right knee replacement H/O esophagogastroduodenoscopy Hx of colonoscopy Family History Father No problems noted. Mother Diabetes Heart problem Social History Household Members: None Housing: House Do you presently have visiting nurse or other home services: No Alcohol intake: never Patient Tobacco Use Status: Never used Tobacco Advance Directives Date on File: 11/18/23 service: No Review of Systems Const All systems reviewed & are unremarkable except as noted in HPI and below Physical Exam Const General: cooperative, healthy appearing and no acute distress HEENT Head: Yes normal to inspection Ears: hearing grossly normal bilaterally General nose exam: Normal external nose present and Nasal discharge present mucoid Face and sinus: Yes normal facial exam Mouth: Normal oral and palatal mucosa present Neck Neck: Yes no lymphadenopathy Resp Effort & Inspection: normal respiratory effort and Actively coughing Quality: productive Auscultation: rhonchi (mild, upper b/l) Cardio Rate: regular rate Rhythm: regular rhythm Skin General skin exam: no rashes or lesions noted Extrem General: Yes capillary refill normal and Yes no clubbing, cyanosis or edema Psych Appearance: grossly normal Mental Status: mental status grossly normal Speech and movement: Normal speech and movement present Assessment & Plan Assessment & Plan (1) URI, acute: Code(s): J06.9 - Acute upper respiratory infection, unspecified Plan: PCN allergy. Will try Doxy bid 7 days for ongoing URI with productive cough. Advised increase fluids and healthy diet. Advised she may take kqbb-uac-vootyrv cold/flu medication and saline nasal spray/drops as needed. Reviewed indications, use, possible side effects of medication. Advised to return to the clinic if she does not improve with treatment, or sooner if she develops worsening symptoms or fever/shortness of breath. She verbalizes understanding and agrees to plan. Medications: New doxycycline hyclate Take one tablet by mouth twice a day for 7 days. 100 mg PO BID 7 days 14 tabs 0RF J06.9 - Acute upper respiratory infection, unspecified Discontinued azithromycin Discontinued Reason: Patient Completed Course For 250 mg dose pack: take 500 mg today (day 1), then 250 mg for 4 days (days 2-5) PO 6 tabs 0RF Coding Level of Care Code Est Pt Level 4 (59351) Diagnoses URI, acute J06.9
== END 2024-10-03 08:55 | disposition home or self-care (01) ==
PROVIDERS: PCP Nurse Practitioner Family; Visit Provider Nurse Practitioner Family
DX: J06.9 Acute upper respiratory infection, unspecified (principal)

== ENCOUNTER → 2024-10-03 07:59 | Outpatient (BNVA) | payer MEDICARE, SELFPAY | PROVIDERS: PCP Nurse Practitioner Family; Visit Provider Nurse Practitioner Family | DX: J06.9 Acute upper respiratory infection, unspecified (principal) | CPT/HCPCS: 99212 ==

== ENCOUNTER → 2024-10-11 09:00 | Outpatient (BNVA) | payer MEDICARE, SELFPAY | PROVIDERS: PCP Nurse Practitioner Family; Visit Provider Physician Assistant Medical ==

== ENCOUNTER 2024-10-11 09:47 | Outpatient (REF) | payer MEDICARE, SELFPAY ==
--- NOTE | ~2024-10-11 | XR_ITS ---
CLINICAL HISTORY: R05.9 - Cough, unspecified 2 view chest x-ray. Comparison: None Findings: The lungs are adequately expanded. No focal confluent opacity. No effusion or pneumothorax. Cardiac and mediastinal contours are within normal limits. No acute osseous abnormality. Spinal fusion hardware visualized appears intact. Reverse left shoulder arthroplasty visualized intact. Impression: No acute process. This document has been electronically signed by: Tom Garcia MD on 10/11/2024 10:31:28
== END 2024-10-11 09:48 | disposition home or self-care (01) ==
LOC: HO.HMGCX 09:47
PROVIDERS: PCP Nurse Practitioner Family; Visit Provider Physician Assistant Medical
DX: R05.9 Cough, unspecified (principal)
CPT/HCPCS: 71046; 99212

== ENCOUNTER → 2024-10-11 09:53 | Outpatient (BNV) | payer MEDICARE, SELFPAY | PROVIDERS: PCP Nurse Practitioner Family; Visit Provider Radiology Vascular & Interventional Radiology | DX: R05.9 Cough, unspecified (principal) | CPT/HCPCS: 71046 ==

== ENCOUNTER 2025-01-19 08:02 | Outpatient (REF) | payer MEDICARE, SELFPAY ==
[2025-01-19 10:55] LABS: Appearance Urine Cloudy; Color Urine Yellow; Glucose Urine UA Negative (Negative); Leukocyte Esterase Urine Large (3+) (Negative); Nitrite Urine Negative (Negative); UMIC TRIGGER UACC YES; Urine Blood Trace (Negative); Urine Ketones Negative (Negative); Urine Protein Negative (Neg-Trace)
[2025-01-19 11:02] LABS: Bacteria Urine 4+ (None Seen); Hyaline Casts Urine 0-2 /LPF (0-2); RBC Urine 0-2 /HPF (0-2); Squamous Epithelial Cell Urine 0-2 /HPF (0-2); UACC Culture Trigger YES; WBC Urine >50 /HPF (0-5)
== END 2025-01-19 08:03 | disposition home or self-care (01) ==
LOC: HO.LAB 08:02
PROVIDERS: PCP Nurse Practitioner Family; Visit Provider Nurse Practitioner Family
DX: N30.90 Cystitis, unspecified without hematuria (principal)
CPT/HCPCS: 81001; 81003; 87086; 87088; 87186; 99212

== ENCOUNTER 2025-01-19 08:02 | Outpatient (AMB) | payer MEDICARE, SELFPAY ==
[2025-01-19 08:07] VITALS: BP 138/90; PULSE 66; TEMP 36.4; O2SAT 98
--- NOTE | 2025-01-19 08:07 | MHC.OFFWIV ---
Intake Vital Signs 01/19/25 08:07 Weight 159 lb BP 138/90 H Blood Pressure Location Lt brachial Position Sitting Pulse 66 Pulse Source Pulse Oximeter Temp 97.6 F Temp Source Oral Pulse Oximetry (%) 98 Oxygen Delivery Method Room Air Intake Visit Reasons: EP ?bladder infection Intake Note: Patient here for burning sensation on urination that has been present for a couple of weeks. Patient Tobacco Use Status: Never used Tobacco Allergies penicillin V Allergy (Unknown, Verified 01/19/25 08:11) rash Penicillins Allergy (Unknown, Verified 01/19/25 08:11) RASH Do you need a note to return to daycare/school/sports/work: No HPI HPI Comments History of Present Illness Details 84 y/o female patient with c/o Urinary tract symptoms for 2 weeks. Reports Urgency, Dysuria and frequency. [facility] Medical History (Updated 01/19/25 @ 08:45 by Adia Harris NP) Cystitis Hypertension Hyperlipidemia GERD (gastroesophageal reflux disease) Irritable bowel syndrome with constipation Surgical History History of back surgery H/O shoulder surgery Status post right knee replacement H/O esophagogastroduodenoscopy Hx of colonoscopy Family History Father No problems noted. Mother Diabetes Heart problem Social History Household Members: None Housing: House Do you presently have visiting nurse or other home services: No Alcohol intake: never Patient Tobacco Use Status: Never used Tobacco Advance Directives Date on File: 11/18/23 service: No Review of Systems Const All systems reviewed & are unremarkable except as noted in HPI and below Physical Exam Vital Signs: Last Vital Signs Temp 97.6 F 01/19/25 08:07 Pulse 66 01/19/25 08:07 BP 138/90 H 01/19/25 08:07 Pulse Ox 98 01/19/25 08:07 Oxygen Delivery Method Room Air 01/19/25 08:07 Const General: no acute distress Nutritional Appearance: overweight Orientation/consciousness: patient oriented x3 Other: Pelvic Exam declined. General: Yes CVA tenderness Back/Spine/Pelvis Back: CVA tenderness Neuro General: patient oriented x3, gait normal and moves all extremities Psych Speech and movement: Normal speech and movement present Results AMB Urinalysis, Automated UA Leukoctes 500 Ewa/uL Last Edit by Coco Watson [facility] on 01/19/25 13:09 UA Nitrite Negative Last Edit by Coco Watson [facility] on 01/19/25 13:09 UA Urobilinogen 0.2 mg/dL Last Edit by Coco Watson [facility] on 01/19/25 13:09 UA Protein 0 mg/dL Last Edit by Coco Watson [facility] on 01/19/25 13:09 UA pH 6.0 Last Edit by Coco Watson [facility] on 01/19/25 13:09 UA Blood 10 Odilon/uL Last Edit by Coco Watson [facility] on 01/19/25 13:09 UA Specific [place] 1.010 Last Edit by Coco Watson [facility] on 01/19/25 13:09 UA Ketone Negative Last Edit by Coco Watson [facility] on 01/19/25 13:09 UA Bilirubin 0 mg/dL Last Edit by Coco Watson [facility] on 01/19/25 13:09 UA Glucose 0 mg/dL Last Edit by Coco Watson [facility] on 01/19/25 13:09 Results Reviewed Results Reviewed: Laboratory Last Values Urine pH (Auto) 6.0 01/19/25 13:08 Specific [place] (Auto) 1.010 01/19/25 13:08 Urine Protein (Auto) 0 mg/dL 01/19/25 13:08 Glucose (UA)(Auto) 0 mg/dL 01/19/25 13:08 Urine Ketones (Auto) Negative 01/19/25 13:08 Urine Blood (Auto) 10 Odilon/uL 01/19/25 13:08 Urine Nitrite (Auto) Negative 01/19/25 13:08 Urine Bilirubin (Auto) 0 mg/dL 01/19/25 13:08 Urine Urobilinogen (Auto) 0.2 mg/dL 01/19/25 13:08 Leukocyte Esterase (Auto) 500 Ewa/uL 01/19/25 13:08 Assessment & Plan Assessment & Plan (1) Cystitis: Code(s): N30.90 - Cystitis, unspecified without hematuria Plan: Rapid U/A positive Ordered C&S Ordered Macrobid Orders: Orders AMB Urinalysis Automated Today Z13.9 - Encounter for screening, unspecified UA CC w/rflx Micro + Cult Today N30.90 - Cystitis, unspecified without hematuria Medications: New nitrofurantoin monohyd/m-cryst 100 mg (Macrobid) must administer with a meal/food 100 mg PO Q12H 14 caps 0RF UTI 7 days N30.90 - Cystitis, unspecified without hematuria Coding Level of Care Code Est Pt Level 4 (20472) Diagnoses Cystitis N30.90 Time Spent (min) 20
== END 2025-01-19 09:12 | disposition home or self-care (01) ==
PROVIDERS: PCP Nurse Practitioner Family; Visit Provider Nurse Practitioner Family
DX: N30.90 Cystitis, unspecified without hematuria (principal); Z13.9 Encounter for screening, unspecified

== ENCOUNTER 2025-01-21 12:23 | Outpatient (AMB) | payer MEDICARE, SELFPAY ==
[2025-01-21 12:45] VITALS: BP 114/70; PULSE 68; O2SAT 98
--- NOTE | 2025-01-21 12:45 | AM.OFFWIN_ITS ---
Intake Vital Signs 01/21/25 12:45 Weight 154 lb BP 114/70 Blood Pressure Location Lt brachial Position Sitting Pulse 68 Pulse Source Pulse Oximeter Pulse Oximetry (%) 98 Oxygen Delivery Method Room Air Intake Visit Reasons: EP Rt leg pain from fall Intake Note: Patient here for right leg pain after a fall she had on sunday. Patient Tobacco Use Status: Never used Tobacco Allergies penicillin V Allergy (Unknown, Verified 01/19/25 08:11) rash Penicillins Allergy (Unknown, Verified 01/19/25 08:11) RASH Do you need a note to return to daycare/school/sports/work: No HPI HPI Comments History of Present Illness Details History of Present Illness - The patient is an 84-year-old female w ith her daughter presenting with a fall injury 2 days ago. - The fall occurred as she slipped getti ng off a chair, due to wearing socks or slippers on hardwood floors, leading her to fall on her right hip - The patient has a history of femoral f racture which was surgically repaired with a zelda, and she is concerned about the integrity of this area after the recent fall. - There is a history of knee replacement on the same side as the current pain. - The patient did not hit her head, did not lose consciousness, and there were no pre-fall dizziness or episodes of syncope. - She is not on a blood thinner. - She was able to get up with assistance and walk around but with soreness. - She reports significant soreness since the fall but has not utilized any analgesics. - Patient denies any urinary symptoms bu t did have one episode of chills that resolved on it's own. After looking into her chart more thoroughly, I realized she did come into the walk-in on January 19, diagnosed with a UTI and given Macrobid however the culture grew out E coli and the Macrobid has a higher YAMINI so I switched her to cefuroxime. - Daughter reports no behavioral changes . Physical Exam General: Cooperative, healthy appearing, comfortable, no acute distress and well developed Orientation: Patient oriented x3 Limitations: No limitations Head: Normal to inspection Ears: Hearing grossly normal bilaterally Nose: Normal External nose present Face and sinus: Normal facial exam Eyes: Appearance normal, both eyes and all related structures Neck: Normal visual inspection and Yes full ROM Respiratory: Normal respiratory effort and able to speak in complete sentences. Skin: No rashes or lesions noted Neuro: Patient oriented x3 Extremities: Normal gait. Full ROM right hip, TTP along hip into lateral thigh. [facility] Medical History (Updated 01/21/25 @ 13:02 by Belia Avina PA-C) Cystitis Hypertension Hyperlipidemia GERD (gastroesophageal reflux disease) Irritable bowel syndrome with constipation Surgical History History of back surgery H/O shoulder surgery Status post right knee replacement H/O esophagogastroduodenoscopy Hx of colonoscopy Family History Father No problems noted. Mother Diabetes Heart problem Social History Household Members: None Housing: House Do you presently have visiting nurse or other home services: No Alcohol intake: never Patient Tobacco Use Status: Never used Tobacco Advance Directives Date on File: 11/18/23 service: No Review of Systems Const All systems reviewed & are unremarkable except as noted in HPI and below Physical Exam Vital Signs: Last Vital Signs Pulse 68 01/21/25 12:45 BP 114/70 01/21/25 12:45 Pulse Ox 98 01/21/25 12:45 Oxygen Delivery Method Room Air 01/21/25 12:45 Assessment & Plan Assessment & Plan (1) Fall: Code(s): W19.XXXA - Unspecified fall, initial encounter Qualifiers: Encounter type: initial encounter Qualified Code(s): W19.XXXA - Unspecified fall, initial encounter Plan: I have ordered an x-ray of the pelvis and right hip due to the patient?s recent fall and her prior surgical history. This imaging aims to assess the area around the previous femoral fracture and internal device, and ensure no new injury or displacement of surgical hardware. For pain management, I recommend naproxen for its efficacy in musculoskeletal pain, with clear instructions on dosing and the complementary use of ice. The patient will receive prompt follow-up with results evaluation to ensure no complications are overlooked, reinforcing that immediate action will follow if x-ray interpretation suggests concerning findings. The patient understands the diagnostic and management plan moving forward with this acute issue. If no improvement in pain over the coming weeks, she should follow up with her PCP. My interpretation of the right hip x-ray is no acute fracture or dislocation or displacement of her surgical hardware. Communicated this with the patient. Pending final Rads read. Patient was informed and verbally consented to the use of an ambient scribe for clinic note documentation during this visit. (2) Acute right hip pain: Code(s): M25.551 - Pain in right hip Plan: as above (3) Cystitis: Code(s): N30.90 - Cystitis, unspecified without hematuria Plan: Changed antibiotics to cefuroxime from Macrobid, communicated this with patient. Orders: Orders XR hip RT w PEL1V Today W19.XXXA - Unspecified fall, initial encounter Medications: Discontinued nitrofurantoin monohyd/m-cryst 100 mg (Macrobid) must administer with a meal/food Discontinued Reason: Doctor's Order 100 mg PO Q12H 7 days 14 caps 0RF UTI N30.90 - Cystitis, unspecified without hematuria Coding Level of Care Code New Pt Level 4 (57688) Diagnoses Fall, initial encounter W19.XXXA Encounter type: initial encounter Acute right hip pain M25.551 Cystitis N30.90
== END 2025-01-21 13:27 | disposition home or self-care (01) ==
PROVIDERS: PCP Nurse Practitioner Family; Visit Provider Physician Assistant
DX: M25.551 Pain in right hip (principal); N30.90 Cystitis, unspecified without hematuria; W19.XXXA Unspecified fall, initial encounter

== ENCOUNTER 2025-01-21 12:23 | Outpatient (REF) | payer MEDICARE, SELFPAY ==
--- NOTE | ~2025-01-21 | XR_ITS ---
EXAMINATION: XR HIP, RIGHT CLINICAL INFORMATION: W19.XXXA - Unspecified fall, initial encounter COMPARISON: 04/15/2024, 01/03/2024. TECHNIQUE: AP pelvis, and 2 views of the right hip. FINDINGS: There is been a total left hip arthroplasty. No periprosthetic complication. No fracture, dislocation or suspicious bone lesion. Normal right hip alignment. There is an intramedullary zelda within the right mid and distal femoral diaphysis, transfixing a distal diaphyseal fracture. No loosening. Mild osteoarthrosis of the right hip joint. There is hazy calcium deposition abutting the greater trochanter, in keeping with calcific tendinopathy of the adductor tendons. 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 Severe degenerative changes lower lumbar spine with fixation hardware. There are diffuse vascular calcifications in the soft tissues. XR/XR hip RT w PEL1V IMPRESSION: 1. No acute bony abnormalities. 2. Mild degenerative arthrosis of the right hip joint. 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 3. Total left hip arthroplasty without complication. Electronically signed by: Ralph Trimble MD 01/21/2025 01:36 PM EDT
== END 2025-01-21 12:24 | disposition home or self-care (01) ==
LOC: HO.HMGCX 12:23
PROVIDERS: PCP Nurse Practitioner Family; Visit Provider Physician Assistant
DX: Z13.89 Encounter for screening for other disorder (principal)
CPT/HCPCS: 73502

== ENCOUNTER → 2025-01-21 13:10 | Outpatient (BNV) | payer MEDICARE, SELFPAY | PROVIDERS: PCP Nurse Practitioner Family; Visit Provider Radiology Diagnostic Radiology | DX: M65.251 Calcific tendinitis, right thigh (principal); Z96.642 Presence of left artificial hip joint | CPT/HCPCS: 73502 ==

== ENCOUNTER 2025-01-22 22:42 | Inpatient (IN) | payer MEDICARE, SELFPAY ==
--- NOTE | ~2025-01-22 | CT_ITS ---
CLINICAL HISTORY: flank pain CT abdomen and pelvis without contrast Comparison: None Findings: Motion artifact degrades the images limiting interpretation. Moderate-sized hiatal hernia is present. 3.3 cm probable cyst is in the left liver. Gallbladder is unremarkable. Pancreas, spleen and adrenal glands are within normal limits. 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 Right kidney is non hydronephrotic. No bowel obstruction, pneumoperitoneum, or pneumatosis. The appendix is not visualized. Left hip arthroplasty causes metallic artifact degrading images of the pelvis. Severe levoscoliosis of the lumbar spine is present with apex at L2. Spring rods are in place. Atherosclerotic vascular calcifications are present. The bones are osteopenic. IMPRESSION: No acute findings. This document has been electronically signed by: Martínez Tyler MD, PHD on 01/23/2025 03:48:20
[2025-01-22 22:49] VITALS: BP 122/65; PULSE 95; RESP 16; TEMP 36.7; O2SAT 97; BMI 28.3
[2025-01-22 23:15] LABS: MANUAL DIFF FLAG NO
[2025-01-22 23:16] LABS: Basophils Percent Auto 0.3 % (0-2); Eosinophils Absolute Auto 0.2 X10*3/uL (0.0-0.4); Eosinophils Percent Auto 2.6 % (0-4); Hemoglobin 12.1 g/dl (12.0-16.0); Imm Gran Abs Auto 0.04 X10*3/uL (0.00-0.03); Imm Gran Pct Auto 0.4 % (0.0-0.4); Lymphocytes Absolute Auto 0.4 X10*3/uL (1.2-4.9); Lymphocytes Percent Auto 4.3 % (20-40); Mean Corpuscular HGB Conc 34.6 g/dl (31.0-35.0); Mean Corpuscular Hemoglobin 31.6 pg (27.0-33.0); Mean Corpuscular Volume 91.4 fL (80.0-98.0); Monocytes Absolute Auto 0.4 X10*3/uL (0.1-1.2); Monocytes Percent Auto 4.3 % (2-11); Neutrophils Absolute Auto 8.1 x10*3/uL (2.0-8.3); Neutrophils Percent Auto 88.1 % (45-73); Platelet Count 189 X10*3/uL (160-400); Red Blood Count 3.83 X10*6/uL (4.20-5.50); Red Cell Distribution Width 13.4 % (11.0-16.0); White Blood Count 9.1 X10*3/uL (4.8-10.8)
[2025-01-22 23:35] LABS: Alanine Aminotransferase 381 U/L (0-31); Albumin Level 3.7 g/dL (3.5-5.0); Alkaline Phosphatase 313 U/L (39-117); Aspartate Amino Transferase 174 U/L (5-31); Bilirubin Total 0.9 mg/dL (0.0-1.0); Blood Urea Nitrogen 29 mg/dL (9-16); Calcium 8.7 mg/dL (8.4-10.2); Creatinine Clr Calc Pharmacy 27.9; Estimated Glomerular Filt Rate 35; Glucose Random 129 mg/dL (60-115); Total Protein 6.6 g/dL (6.5-8.0)
[2025-01-22 23:38] LABS: Anion Gap 17 (12-20); Carbon Dioxide 19 mmol/L (22-29); Chloride 106 mmol/L (96-108); Potassium 3.8 mmol/L (3.3-5.1); Sodium 138 mmol/L (135-145)
[2025-01-23] VITALS (8 sets, daily range): BP systolic 96–154; BP diastolic 51–80; PULSE 66–89; RESP 16–20; TEMP 36.6–37.2; O2SAT 95–100; BMI 28.1
[2025-01-23] MEDS: 0.9 % Sodium Chloride 500 ML IV (02:36)
[2025-01-23 02:44] LABS: Appearance Urine Cloudy; Color Urine Dark Yellow; Glucose Urine UA Negative (Negative); Leukocyte Esterase Urine Small (1+) (Negative); Nitrite Urine Negative (Negative); UMIC TRIGGER UACC YES; Urine Blood Negative (Negative); Urine Ketones 15 mg/dL (Negative); Urine Protein 100 (2+) mg/dL (Neg-Trace)
[2025-01-23 03:16] LABS: Bacteria Urine None Seen (None Seen); Hyaline Casts Urine >20 /LPF (0-2); RBC Urine 0-2 /HPF (0-2); UACC Culture Trigger YES
--- NOTE | 2025-01-23 03:56 | ED.FEMALEGU ---
HPI - Female Genitourinary General Chief complaint: Urogenital-Female Stated complaint: uti, ? antibiotics not working Time Seen by Provider: 01/23/25 02:07 Source: patient Limitations: no limitations History of Present Illness ED Provider: Bonnie Gonzalez PA-C HPI Narrative: 84-year-old female with a history of hypertension, hyperlipidemia, currently being treated for a urinary tract infection on cefuroxime, presents with ongoing dysuria. Patient states she initially was on Macrobid, she was not tolerating the medication they changed the antibiotic to cefuroxime. Patient was still having urinary symptoms. Associated weakness and poor oral intake. Denies abdominal pain, back pain, nausea, vomiting. No fevers. Related Data Home Medications ?Medication ?Instructions ?Recorded ?Confirmed biotin 1 mg capsule 1 mg PO DAILY 05/27/21 11/18/23 lisinopril 5 mg tablet 5 mg PO DAILY 05/27/21 11/18/23 lovastatin 20 mg tablet 20 mg PO BEDTIME 11/18/23 11/18/23 [id number] C 250 3 tab PO DAILY 11/18/23 11/18/23 mg-herbal no.124 11.66 mg chewable tablet (Airborne Gummy) Previous Rx's ?Medication ?Instructions ?Recorded acetaminophen 325 mg tablet 975 mg (3 x 325 mg) PO Q6H PRN 11/23/23 Pain, Mild (Pain Scale 1-3) #30 tabs omeprazole 20 mg capsule,delayed 20 mg PO DAILY #30 caps 11/23/23 release polyethylene glycol 3350 17 gram 17 g PO DAILY Constipation #30 ea 11/23/23 oral powder packet mupirocin 2 % topical ointment 1 appl topical TID #22 grams 07/22/24 ipratropium bromide 21 mcg (0.03 2 spray intranasal BID PRN 10/11/24 %) nasal spray Allergic Symptoms #30 mL cefuroxime axetil 500 mg tablet 500 mg PO Q12H #10 tabs 01/21/25 Allergies Allergy/AdvReac Type Severity Reaction Status Date / Time penicillin V Allergy Unknown rash Verified 01/22/25 22:53 Penicillins Allergy Unknown RASH Verified 01/22/25 22:53 Review of Systems Review of Systems: Yes all other systems are reviewed and are negative Constitutional: Constitutional: Reports fatigue, Denies fever(s) and Reports malaise Cardiovascular: Cardiovascular: Denies chest pain and Denies dyspnea Respiratory: Respiratory: Denies cough and Denies dyspnea Gastrointestinal: Gastrointestinal: Denies abdominal pain, Denies nausea and Denies vomiting Genitourinary: Genitourinary: Reports dysuria and Denies flank pain Musculoskeletal: Musculoskeletal: Denies back pain Endocrine: Endocrine: Reports fatigue [facility] Past Medical History Medical History (Updated 01/23/25 @ 04:54 by JORDAN Sesay) Cystitis Hypertension Hyperlipidemia GERD (gastroesophageal reflux disease) Irritable bowel syndrome with constipation Surgical History History of back surgery H/O shoulder surgery Status post right knee replacement H/O esophagogastroduodenoscopy Hx of colonoscopy Family History Family History Father No problems noted. Mother Diabetes Heart problem Social History Social History Household Members: None Housing: House Do you presently have visiting nurse or other home services: No Alcohol intake: never Patient Tobacco Use Status: Never used Tobacco Smoked in Last 30 Days: No Use of substances other than those prescribed or required for medical reasons: No Advance Directives: Yes Advance Directives on File: Yes Advance Directives Date on File: 11/18/23 Do you have a plan to hurt others: No Plan service: No Physical Exam Vital Signs: Vital Signs: Last Vital Signs Temp 97.9 F 01/23/25 02:30 Pulse 89 01/23/25 02:30 Resp 20 01/23/25 02:30 BP 154/80 H 01/23/25 02:30 Pulse Ox 100 01/23/25 02:30 O2 Del Method Room Air 01/23/25 02:30 BMI result Body Mass Index 28.3 Const: Other: Alert well-appearing Orientation/consciousness: patient oriented x3 HEENT: Other: Dry oral mucosa Resp: Effort & Inspection: normal respiratory effort Cardio: Other: Normal peripheral perfusion : General: Yes no CVA tenderness Back/Spine/Pelvis: Back: no CVA tenderness Skin: Other: Warm dry no rash Neuro: General: patient oriented x3, gait normal, no focal motor deficits and CN's II-XI intact bilaterally Psych: Other: Cooperative Medications Administered Discontinued Medications Generic Name Dose Route Start Last Admin Trade Name Freq PRN Reason Stop Dose Admin Sodium Chloride 500 mls @ 500 mls/hr 01/23/25 02:09 01/23/25 03:26 Ns IV 01/23/25 03:08 Infused .Q1H ONE Infusion Medical Decision Making Medical Decision Making [facility] Narrative: 84-year-old female with a history of hypertension, hyperlipidemia, currently being treated for a urinary tract infection on cefuroxime, presents with ongoing dysuria. Patient states she initially was on Macrobid, she was not tolerating the medication they changed the antibiotic to cefuroxime. Patient was still having urinary symptoms. Associated weakness and poor oral intake. Denies abdominal pain, back pain, nausea, vomiting. No fevers. Problem: Age, active UTI History: Per patient I have considered the following differential diagnoses: Pyelonephritis, refractory UTI, renal colic Plan: Screening labs were obtained from triage, the patient has an JEWEL. Given concurrent malaise with active infection, we will be obtaining a CT scan to rule out pyelonephritis. Doubtful to be renal colic, she has no flank pain or back pain, no history of kidney stones. We will be giving gentle IV fluids I have independently reviewed the following tests: Labs: No overall leukocytosis but left shift noted, not anemic, significant elevation of AST ALT and alk phos, acute kidney injury of 1.43, urine still with evidence of infection CT abdomen and pelvis:Findings: Motion artifact degrades the images limiting interpretation. Moderate-sized hiatal hernia is present. 3.3 cm probable cyst is in the left liver. Gallbladder is unremarkable. Pancreas, spleen and adrenal glands are within normal limits. 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 Right kidney is non hydronephrotic. No bowel obstruction, pneumoperitoneum, or pneumatosis. The appendix is not visualized. Left hip arthroplasty causes metallic artifact degrading images of the pelvis. Severe levoscoliosis of the lumbar spine is present with apex at L2. Spring rods are in place. Atherosclerotic vascular calcifications are present. The bones are osteopenic. IMPRESSION: No acute findings. Lab Data 01/22/25 23:08 01/22/25 23:07 Labs: Lab Results 01/22/25 01/22/25 01/23/25 Range/Units 23:07 23:08 02:31 WBC 9.1 (4.8-10.8) X10*3/uL RBC 3.83 L (4.20-5.50) X10*6/uL Hgb 12.1 D (12.0-16.0) g/dl Hct 35.0 L (37.0-47.0) % MCV 91.4 (80.0-98.0) fL MCH 31.6 (27.0-33.0) pg MCHC 34.6 (31.0-35.0) g/dl RDW 13.4 (11.0-16.0) % Plt Count 189 D (160-400) X10*3/uL MPV 11.0 (9.4-12.3) fL Immature Gran % (Auto) 0.4 (0.0-0.4) % Neut % (Auto) 88.1 H (45-73) % Lymph % (Auto) 4.3 L (20-40) % [place]ette % (Auto) 4.3 (2-11) % Eos % (Auto) 2.6 (0-4) % Baso % (Auto) 0.3 (0-2) % Lymph # (Auto) 0.4 L (1.2-4.9) X10*3/uL [place] # (Auto) 0.4 (0.1-1.2) X10*3/uL Eos # (Auto) 0.2 (0.0-0.4) X10*3/uL Baso # (Auto) 0.0 (0.0-0.2) X10*3/uL Abs Immat Gran (auto) 0.04 H (0.00-0.03) X10*3/uL Absolute Neuts (auto) 8.1 (2.0-8.3) x10*3/uL Absolute Nucleated RBC 0.000 (0.0-0.012) X10*3/uL Nucleated RBC % (auto) 0.0 (0.0-0.2) /100WBC Sodium 138 (135-145) mmol/L Potassium 3.8 (3.3-5.1) mmol/L Chloride 106 (96-108) mmol/L Carbon Dioxide 19 L (22-29) mmol/L Anion Gap 17 (12-20) BUN 29 H (9-16) mg/dL Creatinine 1.43 H (0.5-1.4) mg/dL Estim Creat Clear Calc 27.9 Estimated GFR 35 Random Glucose 129 H (60-115) mg/dL Calcium 8.7 (8.4-10.2) mg/dL Total Bilirubin 0.9 (0.0-1.0) mg/dL AST 174 H (5-31) U/L ALT 381 H (0-31) U/L Alkaline Phosphatase 313 H (39-117) U/L Total Protein 6.6 (6.5-8.0) g/dL Albumin 3.7 (3.5-5.0) g/dL Urine Color Dark Yellow Urine Appearance Cloudy Urine pH 5.0 (5.0-9.0) Ur Specific Vale 1.020 (1.005-1.025) Urine Protein 100 (2+) H (Neg-Trace) mg/dL Urine Glucose (UA) Negative (Negative) mg/dL Urine Ketones 15 (Negative) mg/dL Urine Blood Negative (Negative) Urine Nitrite Negative (Negative) Ur Leukocyte Esterase Small (1+) H (Negative) Urine RBC 0-2 (0-2) /HPF Urine WBC 11-20 H (0-5) /HPF Ur Squamous Epith Cells 11-20 (0-2) /HPF Urine Bacteria None Seen (None Seen) Hyaline Casts >20 (0-2) /LPF Discharge Plan Discharge Clinical Impression: Acute UTI, Transaminitis, Liver cyst, Weakness, JEWEL (acute kidney injury) Patient Disposition: Admitted As Inpatient Prescriptions: No Action cefuroxime axetil 500 mg tablet 500 mg PO Q12H Qty: 10 0RF lovastatin 20 mg tablet 20 mg PO BEDTIME Airborne Gummy 250-11.66 mg Tablet,Chewable 3 tab PO DAILY polyethylene glycol 3350 17 gram Powder In Packet 17 g PO DAILY Qty: 30 0RF acetaminophen 325 mg Tablet 975 mg PO Q6H PRN (Reason: Pain, Mild (Pain Scale 1-3)) Qty: 30 0RF omeprazole 20 mg capsule,delayed release(DR/EC) 20 mg PO DAILY Qty: 30 0RF lisinopril 5 mg tablet 5 mg PO DAILY biotin 1 mg capsule 1 mg PO DAILY mupirocin 2 % ointment 1 appl topical TID Qty: 22 0RF ipratropium bromide 21 mcg (0.03 %) spray,non-aerosol 2 spray intranasal BID PRN (Reason: Allergic Symptoms) Qty: 30 0RF Rx Instructions: max 3 weeks Print Language: [place]
[2025-01-23] MEDS: cefuroxime axetiL 500 MG TABLET PO (05:08)
--- NOTE | 2025-01-23 05:12 | P.HPHOSP_ITS ---
History of Present Illness Date of Service: 01/23/25 Attending physician on admission: Kelly Fry Chief Complaint: dysuria Patient is an 84-year-old female with past medical history of CAD, HTN, UTI, urinary incontinence, diverticulosis, right hip replacement, left knee replacement, right shoulder surgery, bladder sling, closed right femoral fracture 1 year prior, IBS with constipation, osteoarthritis, allergic rhinitis and GERD reports that in the emergency room with continued complaints of dysuria, poor appetite, generalized weakness and feeling wobbly for the last 2 days. Patient currently works at [employer] 3-4 evenings a week and was at work yesterday and was not feeling well and decided to be seen. Patient normally works 6-10 hours a week, lives alone and drives and is independent with IADLs and ADLs. Patient has had multiple visits at an urgent care center for similar symptoms and has been treated with Macrodantin and then cefuroxime for UTI. Urine culture positive for E coli on 01/19/2025. Patient reports a mild rash on the right leg that is now greater in the left leg suspicious for possible reaction to antibiotics or medication. Patient does report a true allergy to penicillin resulting in rash. Patient has been on the cefuroxime for approximately 4 days. Patient also reports a fall 1 week prior related to wearing socks on a wooden floor. Patient denied any injury or hit to the head. Patient states she is on an anticoagulant but can not remember the name and this is not listed on her current medication reconciliation list. Patient denies any history of AFib or arrhythmia. Patient was also recently told that she has a blocked coronary artery but can not define how this was recognized, i.e. patient denies having a recent stress test or cardiac catheterization or issues with chest pain, shortness of breath at rest or with exertion. Patient has elevated liver enzymes and a CT of the abdomen and pelvis was completed. Incidental 3.3 cyst is found in the left liver. Gallbladder is unremarkable.Patient has a noted JEWEL with a history of chronic kidney disease. 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 Right kidney is non hydronephrotic. Patient denies any EtOH history or known liver history including hepatitis. Review of Systems 2 Review of Systems: Patient currently denies any chest pain, shortness of breath at rest or with exertion, abdominal pain, nausea, vomiting, diarrhea. Patient denies fever, chills, night sweats. Patient reports a persistent rash that started on the right lower extremity approximately 2 weeks prior and is now currently on both lower extremities. Patient denies straining or current issues with constipation. Patient reports feeling generalized weakness and ?wobbly but has been able to attend work at the [employer] where she has worked for the last 50 years. Yes all other systems are reviewed and are negative [facility] Medical History Hypertension Cystitis Hyperlipidemia GERD (gastroesophageal reflux disease) Irritable bowel syndrome with constipation Cognitive capacity: Alert and orientated x3, patient lives alone and currently drives and works 6-10 hours at the [employer] Functional capacity: uses cane/walker (Has been using a cane recently due to generalized weakness) Family History Father No problems noted. Mother Diabetes Heart problem Surgical History History of back surgery H/O shoulder surgery Status post right knee replacement H/O esophagogastroduodenoscopy Hx of colonoscopy Social History Household Members: None Housing: House Do you presently have visiting nurse or other home services: No Alcohol intake: never Patient Tobacco Use Status: Never used Tobacco Smoked in Last 30 Days: No Use of substances other than those prescribed or required for medical reasons: No Advance Directives: Yes Advance Directives on File: Yes Advance Directives Date on File: 11/18/23 Do you have a plan to hurt others: No Plan service: No Ebola Risk: Travel/Contact With Anyone From Affected Area/s: No Has Patient Experienced Ebola Symptoms: No Meds Allergies Allergy/AdvReac Type Severity Reaction Status Date / Time penicillin V Allergy Unknown rash Verified 01/22/25 22:53 Penicillins Allergy Unknown RASH Verified 01/22/25 22:53 Active Medications: Current Medications Acetaminophen (Acetaminophen 325 Mg Tablet) 650 mg PO Q6H PRN PRN Reason: Pain, Mild 1-3,fever,headache Calcium Carbonate (Calcium Carbonate 750 Mg Tab.Chew) 750 mg PO Q4H PRN PRN Reason: Heartburn Heparin Sodium (Porcine) (Heparin Sodium,Porcine 5,000 Unit/Ml Vial) 5,000 unit SUBCUT Q12H [facility] Sodium Chloride (Ns) 1,000 mls @ 100 mls/hr IVCONT .Q10H [place] Magnesium Hydroxide (Milk Of Magnesia 30 Ml Oral.Susp) 30 ml PO DAILY PRN PRN Reason: Constipation Melatonin (Melatonin 3 Mg Tablet) 6 mg PO BEDTIME PRN PRN Reason: Insomnia Ondansetron HCl (Ondansetron Hcl 4 Mg/2 Ml Vial) 4 mg IVPUSH Q8H PRN PRN Reason: Nausea and Vomiting Senna (Sennosides 8.6 Mg Tablet) 17.2 mg PO BEDTIME [facility] Sodium Chloride (0.9 % Sodium Chloride Flush 3 Ml Syringe) 3 ml IVFLUSH QSHIFT [facility] Home Medications ?Medication ?Instructions ?Recorded ?Confirmed ?Last Taken ?Type biotin 1 mg capsule 1 mg PO DAILY 05/27/21 11/18/23 11/17/23 History lisinopril 5 mg tablet 5 mg PO DAILY 05/27/21 11/18/23 11/17/23 History lovastatin 20 mg tablet 20 mg PO BEDTIME 11/18/23 11/18/23 11/17/23 History mabzsygs-zgrhgvjn-crq C 250 3 tab PO DAILY 11/18/23 11/18/23 11/17/23 History mg-herbal no.124 11.66 mg chewable tablet (Airborne Gummy) Physical Exam 2 Vital Signs and Narrative: Vital Signs: Last Vital Signs Temp 98.1 F 01/23/25 05:06 Pulse 79 01/23/25 05:06 Resp 20 01/23/25 05:06 BP 126/57 L 01/23/25 05:06 Pulse Ox 98 01/23/25 05:06 O2 Del Method Room Air 01/23/25 05:06 BMI result Body Mass Index 28.3 Alert and orientated X3, able to answer questions, somewhat forgetful regarding specifics about recent events Neuro: CN II-X11 intact, no deficits, visual acuity intact, glasses on EYES: PERRLA, EOM intact ENT: hearing intact, no issues with swallowing, uvula midline, lips moist, nares patent no epistaxis Cardiac: S1 S2 RRR, no murmur, no JVD, no edema in Lower ext Pulmonary: lungs clear to auscultation B Abdominal: BS active in all 4 quadrants, no guarding, tenderness, rebounding MSK: strength 4/5 upper and lower extremities : no CVA tenderness no bladder distension Extremities: no edema in lower extremities, PT and DP pulses palpable +2, Homans sign negative Psych: mood stable, judgement and insight good Skin: Sandpaper rash noted in bilateral lower extremities. No evidence of actual cellulitis. Rash is superficial. Results Labs 01/22/25 23:08 01/22/25 23:07 Labs: Laboratory Results - last 24 hr 01/22/25 01/22/25 01/23/25 23:07 23:08 02:31 MCV 91.4 MCH 31.6 MCHC 34.6 RDW 13.4 Plt Count 189 D MPV 11.0 Immature Gran % (Auto) 0.4 Neut % (Auto) 88.1 H Lymph % (Auto) 4.3 L [place] % (Auto) 4.3 Eos % (Auto) 2.6 Baso % (Auto) 0.3 Lymph # (Auto) 0.4 L [place] # (Auto) 0.4 Eos # (Auto) 0.2 Baso # (Auto) 0.0 Abs Immat Gran (auto) 0.04 H Absolute Neuts (auto) 8.1 Absolute Nucleated RBC 0.000 Nucleated RBC % (auto) 0.0 Anion Gap 17 Estim Creat Clear Calc 27.9 Estimated GFR 35 Random Glucose 129 H Calcium 8.7 Total Bilirubin 0.9 AST 174 H ALT 381 H Alkaline Phosphatase 313 H Total Protein 6.6 Albumin 3.7 Urine Color Dark Yellow Urine Appearance Cloudy Urine pH 5.0 Ur Specific [place] 1.020 Urine Protein 100 (2+) H Urine Glucose (UA) Negative Urine Ketones 15 Urine Blood Negative Urine Nitrite Negative Ur Leukocyte Esterase Small (1+) H Urine RBC 0-2 Urine WBC 11-20 H Ur Squamous Epith Cells 11-20 Urine Bacteria None Seen Hyaline Casts >20 ECG Attestation: I personally reviewed and interpreted this ECG as follows: (EKG requested) Prior ECG tracings: not available for review Imaging Radiologist's Impressions: CT ABD PELVIS Findings: Motion artifact degrades the images limiting interpretation. Moderate-sized hiatal hernia is present. 3.3 cm probable cyst is in the left liver. Gallbladder is unremarkable. Pancreas, spleen and adrenal glands are within normal limits. 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 Right kidney is non hydronephrotic. No bowel obstruction, pneumoperitoneum, or pneumatosis. The appendix is not visualized. Left hip arthroplasty causes metallic artifact degrading images of the pelvis. Severe levoscoliosis of the lumbar spine is present with apex at L2. Spring rods are in place. Atherosclerotic vascular calcifications are present. The bones are osteopenic. IMPRESSION: No acute findings. Assessment and Plan (1) Acute UTI: Status: Acute (2) JEWEL (acute kidney injury): Status: Acute (3) Rash: Status: Acute (4) Liver cyst: Status: Acute (5) Transaminitis: Status: Acute (6) Weakness: Status: Acute Plan Patient is an 84-year-old female with past medical history of CAD, HTN, UTI, urinary incontinence, right hip replacement, left knee replacement, right shoulder surgery, bladder sling, closed right femoral fracture 1 year prior, IBS with constipation, osteoarthritis, allergic rhinitis and GERD was seen in the ED for continued symptoms of urinary tract infection to include dysuria and incontinence with frequency especially at night. The following plan reflex patient's pertinent problems for admission. Acute UTI -Patient will start on ceftriaxone noting susceptibilities from culture from 01/19 indicated E coli. Patient can not take penicillin and has already tried Macrodantin. Pt cannot take bactrim due to current JEWEL. Patient does have a rash on bilateral lower extremities and has been on cefuroxime. Rash started before taking the cefuroxime per pt. Reviewed with attending Dr. Harkins and ceftriaxone was chosen from susceptinilities of last culture from 01/19/25, noting it it is a second-generation cephalosporin. -Monitor for worsening rash or allergic symptoms. 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 Patient denies history of chronic kidney disease. -Avoid hypotension, nephrotoxic meds -IV hydration continued -Nephrology consultation Rash -sandpaper rash noted per patient on right lower extremity and now more so on the left lower extremity over the last 2 weeks. Patient has been treated for UTI starting with Macrodantin and then cefuroxime with a noted allergy to penicillin that results in rash. Do not suspect cellulitis as the rash is superficial. -Patient will continue on ceftriaxone IV upon review with Dr. Harkins attending and patient will need to be monitored for worsening rash and to consider other sources noting elevated liver enzymes -ID consult if needed Liver cyst with transaminitis -AST 174, ALT 381, alk phos , 313 T bili [address] negative for any gallbladder or bile duct involvement -patient admits taking possibly 3 g of Tylenol a day or more due to her osteoarthritis -may be related to ongoing urinary tract infection -trend LFTs, we will check hepatitis profile -outpatient follow-up or GI consultation inpatient if needed -avoid hepaticotoxic meds Generalized weakness -ordered PT eval -high fall risk DVT prophylaxis: Heparin subQ 5000 q.12 PPI: Omeprazole once med rec is completed Med rec pending Patient requires inpatient hospitalization for urinary tract infection and IV antibiotics. Patient has elevated liver enzymes with an JEWEL and needs further monitoring. Expert consultation ordered with Nephrology. Total time managing care of this patient today: 35 minutes. Quality Stroke Does the patient have a stroke diagnosis?: No Reason for No Anti-thrombotic by Day Two: N/A - Med Ordered VTE Prior VTE?: No VTE Risk Level:: Medical - moderate - high VTE Device Contraindication: N/A - Device Ordered VTE Drug Contraindication: N/A - Med Ordered
[2025-01-23] MEDS: Heparin Sodium,Porcine 5,000 UNIT/ML VIAL 5000 UNIT SUBCUT ×2 (05:40→18:17)
[2025-01-23] MEDS: 0.9 % Sodium Chloride 1,000 ML 100 ML IVCONT (05:42)
[2025-01-23 05:44] LABS: Magnesium 2.3 mg/dL (1.6-2.6)
[2025-01-23 05:58] LABS: Free T4 (Free Thyroxine) 1.26 ng/dL (0.71-1.85); Thyroid Stimulating Hormone 1.37 uIU/mL (0.32-4.0)
[2025-01-23 06:27] LABS: Lactic Acid 0.8 mmol/L (0.5-2.0)
--- NOTE | 2025-01-23 09:11 | PHA.MEDREC ---
Pharmacy Consult ? Medication Reconciliation Pharmacy has completed the medication reconciliation.Med rec complete. Spoke to patient and compared with pharmacy claims, patient was able to confirm all her medications except metoprolol. SHE did not remember this or know if she was still taking it. Called office of Eliza Ibrahim and confirmed she is still supposed to be on this medication.
--- NOTE | 2025-01-23 09:33 | MHC.CM.PN ---
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
[2025-01-23 10:16] LABS: HBc Num1 0.07 S/CO (0.00-0.79); HBsAGNum1 0.26 S/CO (0.00-0.99); Hepatitis B Core Antibody Nonreactive (Nonreactive); Hepatitis B Surface Antigen Negative (Negative); ~HepC Num1 0.07 S/CO (0.00-0.79); ~Hepatitis B Surface Antibody NONREACTIVE (Nonreactive); ~Hepatitis C Antibody Nonreactive (Nonreactive)
--- NOTE | 2025-01-23 11:27 | PM.EVENT ---
Event Note Date of Service: 01/23/25 Event Note: Seen and evaluated this morning Feels better, less dysurea Continue Ceftriaxone Pending hepatitis serology repeat BMP, LFT Continue IVF , follow I\O Time Spent With Patient Time: Total time managing care of this patient today ____ minutes.
[2025-01-23 12:33] LABS: Alanine Aminotransferase 305 U/L (0-31); Albumin Level 3.3 g/dL (3.5-5.0); Anion Gap 12 (12-20); Aspartate Amino Transferase 127 U/L (5-31); Bilirubin Direct 0.3 mg/dL (0.0-0.5); Bilirubin Total 0.6 mg/dL (0.0-1.0); Blood Urea Nitrogen 28 mg/dL (9-16); Calcium 8.4 mg/dL (8.4-10.2); Carbon Dioxide 25 mmol/L (22-29); Chloride 109 mmol/L (96-108); Creatinine Clr Calc Pharmacy 43.3; Estimated Glomerular Filt Rate 58; Glucose Random 112 mg/dL (60-115); Potassium 4.1 mmol/L (3.3-5.1); Sodium 142 mmol/L (135-145); Total Protein 6.1 g/dL (6.5-8.0)
[2025-01-23] MEDS: Metoprolol Succinate ER 25 MG TAB.ER.24H PO (12:46)
[2025-01-23] MEDS: Multivitamin TABLET 1 TAB PO (12:46)
[2025-01-23] MEDS: Omeprazole 20 MG CAPSULE.DR PO (12:46)
[2025-01-23] MEDS: Aspirin Enteric Coated 81 MG TABLET.DR PO (12:46)
[2025-01-23] MEDS: cefTRIAXone sodium 1 GM VIAL IVPUSH (15:53)
[2025-01-23] MEDS: Ipratropium Bromide Nas 0.03 % 30 ML SPRAY 2 SPRAY NOSTRIL-B (15:53)
[2025-01-23 18:52] LABS: Alkaline Phosphatase 278 U/L (39-117)
[2025-01-23] MEDS: Sennosides 8.6 MG TABLET 17.2 MG PO (20:14)
[2025-01-23] MEDS: 0.9 % Sodium Chloride Flush 3 ML SYRINGE IVFLUSH (23:23)
[2025-01-24 03:11] VITALS: BP 115/59; PULSE 64; RESP 16; TEMP 36.7; O2SAT 98
[2025-01-24] MEDS: Omeprazole 20 MG CAPSULE.DR PO (05:44)
[2025-01-24] MEDS: Heparin Sodium,Porcine 5,000 UNIT/ML VIAL 5000 UNIT SUBCUT (05:44)
[2025-01-24 06:32] LABS: Alanine Aminotransferase 257 U/L (0-31); Anion Gap 11 (12-20); Aspartate Amino Transferase 108 U/L (5-31); Bilirubin Direct 0.2 mg/dL (0.0-0.5); Bilirubin Total 0.4 mg/dL (0.0-1.0); Blood Urea Nitrogen 24 mg/dL (9-16); Calcium 8.2 mg/dL (8.4-10.2); Carbon Dioxide 23 mmol/L (22-29); Chloride 113 mmol/L (96-108); Creatinine Clr Calc Pharmacy 46.2; Estimated Glomerular Filt Rate > 60; Glucose Random 85 mg/dL (60-115); Potassium 4.2 mmol/L (3.3-5.1); Sodium 143 mmol/L (135-145); Total Protein 5.6 g/dL (6.5-8.0)
[2025-01-24 06:36] LABS: Alkaline Phosphatase 269 U/L (39-117)
[2025-01-24 07:11] VITALS: BP 118/58; PULSE 56; RESP 14; TEMP 36.4; O2SAT 96
[2025-01-24] MEDS: Multivitamin TABLET 1 TAB PO (08:03)
[2025-01-24 08:04] VITALS: PULSE 64
[2025-01-24] MEDS: Metoprolol Succinate ER 25 MG TAB.ER.24H PO (08:04)
[2025-01-24] MEDS: Aspirin Enteric Coated 81 MG TABLET.DR PO (08:06)
[2025-01-24] MEDS: 0.9 % Sodium Chloride Flush 3 ML SYRINGE IVFLUSH (08:07)
[2025-01-24] MEDS: Ipratropium Bromide Nas 0.03 % 30 ML SPRAY 2 SPRAY NOSTRIL-B (08:08)
[2025-01-24 09:10] LABS: Basophils Absolute Auto 0.1 X10*3/uL (0.0-0.2); Basophils Percent Auto 0.6 % (0-2); Eosinophils Percent Auto 11.8 % (0-4); Hematocrit 35.4 % (37.0-47.0); Imm Gran Abs Auto 0.06 X10*3/uL (0.00-0.03); Imm Gran Pct Auto 0.7 % (0.0-0.4); Lymphocytes Absolute Auto 1.4 X10*3/uL (1.2-4.9); Lymphocytes Percent Auto 16.6 % (20-40); Mean Corpuscular HGB Conc 33.9 g/dl (31.0-35.0); Mean Corpuscular Hemoglobin 31.3 pg (27.0-33.0); Mean Corpuscular Volume 92.2 fL (80.0-98.0); Monocytes Absolute Auto 0.7 X10*3/uL (0.1-1.2); Neutrophils Absolute Auto 5.2 x10*3/uL (2.0-8.3); Neutrophils Percent Auto 62.3 % (45-73); Platelet Count 233 X10*3/uL (160-400); Red Blood Count 3.84 X10*6/uL (4.20-5.50); Red Cell Distribution Width 13.4 % (11.0-16.0); White Blood Count 8.3 X10*3/uL (4.8-10.8)
--- NOTE | 2025-01-24 10:49 | P.DS_ITS ---
DS: Providers Provider Date of Service: 01/24/25 Date of admission: 01/23/25 05:05 Date of discharge: 01/24/25 Primary care physician: Eliza Ibrahim NP DS: Diagnosis Discharge Diagnosis (1) Acute UTI: Status: Acute (2) JEWEL (acute kidney injury): Status: Acute (3) Rash: Status: Acute (4) Liver cyst: Status: Acute (5) Transaminitis: Status: Acute (6) Weakness: Status: Acute DS: Summary Hospital Course Hospital Course: Admission note HPI Patient is an 84-year-old female with past medical history of CAD, HTN, UTI, urinary incontinence, diverticulosis, right hip replacement, left knee replacement, right shoulder surgery, bladder sling, closed right femoral fracture 1 year prior, IBS with constipation, osteoarthritis, allergic rhinitis and GERD reports that in the emergency room with continued complaints of dys uria, poor appetite, generalized weakness and feeling wobbly for the last 2 days. Patient currently works at [employer] 3-4 evenings a week and was at work yesterday and was not feeling well and decided to be seen. Patient normally works 6-10 hours a week, lives alone and drives and is independent with IADLs and ADLs. Patient has had multiple visits at an urgent care center for similar symptoms and has been treated with Macrodantin and then cefuroxime for UTI. Urine culture positive for E coli on 01/19/2025. Patient reports a mild rash on the right leg that is now greater in the left leg suspicious for possible reaction to antibiotics or medication. Patient does report a true allergy to penicillin resulting in rash. Patient has been on the cefuroxime for approximately 4 days. Patient also reports a fall 1 week prior related to wearing socks on a wooden floor. Patient denied any injury or hit to the head. Patient states she is on an anticoagulant but can not remember the name and this is not listed on her current medication reconciliation list. Patient denies any history of AFib or arrhythmia. Patient was also recently told that she has a blocked coronary artery but can not define how this was recognized, i.e. patient denies having a recent stress test or cardiac catheterization or issues with chest pain, shortness of breath at rest or with exertion. Patient has elevated liver enzymes and a CT of the abdomen and pelvis was completed. Incidental 3.3 cyst is found in the left liver. Gallbladder is unremarkable.Patient has a noted JEWEL with a history of chronic kidney disease. 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 Right kidney is non hydronephrotic. Patient denies any EtOH history or known liver history including hepatitis. Hospital course The patient was admitted for the following problems: # Acute UTI culture from 01/19 indicated E coli. Started on Ceftriaxone with good response. To continue Cefpodoxime for 3 more days to finish total of 5 days of antibiotic s. It seems she had reactions to both Nitrofurantoin like Rash. She will need outpatient uro- gynecology follow-up for evaluation of incotinence and bladder sling # Acute kidney injury. likely related to decrease PO intake, medications. improved with holding Lisinopril and IV fluids. To hold Lisinopril at time of discharge as BP runs soft. to be followed by PCP with 1 week check of BP at home. # Lower extremities Rash. Sandpaper rash bilaterally over the last 2 weeks. non itchy. likely related to antibiotics usage (Nitrofurantoin). improving. # Liver cyst . Incidental finding on CT scan as it reported no evidence of any gallbladder or bile duct involvement. # Transaminitis : Liver enzymes trended down AST 170 to 110, ALT 380 to 257. hepatitis profile still pending. She reported taking possibly 3 g of Tylenol a day or more due to her osteoarthritis which we advise to cut down. Advised to hold Statin and cut down Tylenol usage as CT scan did not show any liver abnormalities other than simple cyst. It could also be related to her recent usage of Nitrofurantoin which will be added to her allergy list. To repeat LFT as outpatient and consider outpatient follow-up # Generalized weakness seen by PT team who recommended home PT. [facility] to follow. Discharge plan Hold Atorvastatin for the next 3 days Hold Lisinopril. Monitor blood pressure at home for next week. discuss with PCP before restarting it if needed. To repeat kidney and liver function next week Take Cefpodoxime for 3 more days To follow with PCP for repeat blood work Increase physical activity as tolerated Decrease Tylenol usage to max of 2 gm a day She will need outpatient uro- gynecology follow-up for evaluation of incotinence and bladder sling The patient made quicker than expected recovery and will not need 2 overnight hospital stay. Time Attestation Discharge Coordination Time (in mins): 42 Quality: Safe Use of Opioids Does Pt have an Active Cancer Diagnosis on the Problem List?: No Quality: Stroke Does the patient have a stroke diagnosis?: No Physical Exam Vital Signs: Vital Signs: Last Vital Signs Temp 97.6 F 01/24/25 07:11 Pulse 64 01/24/25 08:04 Resp 14 01/24/25 07:11 BP 118/58 L 01/24/25 07:11 Pulse Ox 96 01/24/25 07:11 O2 Del Method Room Air 01/24/25 07:11 BMI result Body Mass Index 28.1 Const: Other: Constitutional : Awake, interactive, not in distress Neck : Normal inspection, Supple Cardiovascular : RRR, no JVP, no lower extremity edema Respiratory : good bilateral air entry, no crackles, wheezes or rhonchi Gastrointestinal: soft, lax, Normal bowel sounds, Non tender Skin : Warm, Dry Neurological : Alert & oriented x3, No focal deficit , CN 2-12 within normal DS: Data Data Completed and Pending Completed studies during hospitalization [Text1]: Procedures Insertion of Intramedullary Internal Fixation Device into Right Lower Femur, Percutaneous Approach (11/18/23) Introduction of Remdesivir Anti-infective into Peripheral Vein, Percutaneous Approach, [employer] 5 (11/18/23) Transfusion of Nonautologous Red Blood Cells into Peripheral Vein, Percutaneous Approach (11/18/23) Labs on day of discharge: Laboratory Results - last 24 hr 01/23/25 01/24/25 01/24/25 11:52 05:56 08:48 WBC 8.3 RBC 3.84 L Hgb 12.0 Hct 35.4 L MCV 92.2 MCH 31.3 MCHC 33.9 RDW 13.4 Plt Count 233 MPV 11.0 Immature Gran % (Auto) 0.7 H Neut % (Auto) 62.3 Lymph % (Auto) 16.6 L [place] % (Auto) 8.0 Eos % (Auto) 11.8 H Baso % (Auto) 0.6 Lymph # (Auto) 1.4 [place] # (Auto) 0.7 Eos # (Auto) 1.0 H Baso # (Auto) 0.1 Abs Immat Gran (auto) 0.06 H Absolute Neuts (auto) 5.2 Absolute Nucleated RBC 0.000 Nucleated RBC % (auto) 0.0 Sodium 142 143 Potassium 4.1 4.2 Chloride 109 H 113 H Carbon Dioxide 25 23 Anion Gap 12 11 L BUN 28 H 24 H Creatinine 0.92 0.86 Estim Creat Clear Calc 43.3 46.2 Estimated GFR 58 > 60 Random Glucose 112 85 Calcium 8.4 8.2 L Total Bilirubin 0.6 0.4 Direct Bilirubin 0.3 0.2 AST 127 H 108 H ALT 305 H 257 H Alkaline Phosphatase 278 H 269 H Total Protein 6.1 L 5.6 L Albumin 3.3 L 3.0 L Imaging Chest x-ray: Radiologist's impression: CT Abd Findings: Motion artifact degrades the images limiting interpretation. Moderate-sized hiatal hernia is present. 3.3 cm probable cyst is in the left liver. Gallbladder is unremarkable. Pancreas, spleen and adrenal glands are within normal limits. 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 Right kidney is non hydronephrotic. No bowel obstruction, pneumoperitoneum, or pneumatosis. The appendix is not visualized. Left hip arthroplasty causes metallic artifact degrading images of the pelvis. Severe levoscoliosis of the lumbar spine is present with apex at L2. Spring rods are in place. Atherosclerotic vascular calcifications are present. The bones are osteopenic. IMPRESSION: No acute findings. This document has been electronically signed by: Martínez Tyler MD, PHD on 01/23/2025 03:48:20 Discharge Plan Discharge Anticipated Discharge Date/Time: 01/24/25 10:33 Patient Disposition: Home Health Service Discharge Diagnosis: Urine infection Elevated liver enzymes Acute kidney injury Referrals: Eliza Ibrahim NP [Primary Care Provider] - 1 Week Discharge Medications: New cefpodoxime 100 mg tablet 100 mg PO BID Qty: 6 0RF Rx Instructions: must administer with a meal/food Continued Airborne Gummy 250-11.66 mg Tablet,Chewable 3 tab PO DAILY acetaminophen 325 mg Tablet 975 mg PO Q6H PRN (Reason: Pain, Mild (Pain Scale 1-3)) Qty: 30 0RF aspirin 81 mg tablet,delayed release (DR/EC) 81 mg PO DAILY metoprolol succinate 25 mg tablet extended release 24 hr 25 mg PO DAILY omeprazole 20 mg capsule,delayed release(DR/EC) 20 mg PO DAILY@0630 ipratropium bromide 21 mcg (0.03 %) spray,non-aerosol 2 spray intranasal BID Rx Instructions: max 3 weeks biotin 1 mg capsule 1 mg PO DAILY Held atorvastatin 40 mg tablet 40 mg PO BEDTIME Hold Instructions: Restart on Sunday. lisinopril 5 mg tablet 5 mg PO DAILY Hold Instructions: Monitor blood pressure at home for next week. discuss with PCP before restarting it. Discontinued cefuroxime axetil 500 mg tablet 500 mg PO Q12H Qty: 10 0RF Discharge Orders: Discharge Order (Routine); Ordered 01/24/25 Ordered By: Marbella Jones Diet: Advance to usual diet Activity on Discharge: As tolerated Stand Alone Forms: Patient Portal Discharge page Print Language: Belarusian Other Ambulatory Orders: Basic Metabolic Panel (Routine) Timeframe: 5 Days Facility: [facility] - Location: Laboratory Ordered By: Marbella Jones Liver Panel (Routine) Timeframe: 5 Days Facility: [facility] - Location: Laboratory Ordered By: Marbella Jones Care Plan Goals: Hold Atorvastatin for the next 3 days Hold Lisinopril. Monitor blood pressure at home for next week. discuss with PCP before restarting it if needed. To repeat kidney and liver function next week Take Cefpodoxime for 3 more days To follow with PCP for repeat blood work Increase physical activity as tolerated She will need outpatient uro- gynecology follow-up for evaluation of incotinence and bladder sling Decrease Tylenol usage to max of 2 gm a day Health Concerns: Urine infection Elevated liver enzymes Kidney injury Plan of Treatment: Antibiotics Medications adjustment Assessment: as above
--- NOTE | 2025-01-24 11:10 | MHC.CM.PN ---
Addendum entered by Sarah Bassett RN 01/24/25 11:18: RN aware of patient's plan to self transport home and will discuss w/ patient. Original Note: Patient medically cleared for dc. PT rec home w/ services. However, patient is not homebound. Reports she will drive herself home and plans to go into work tonight. Unable to have home services. She will schedule a hospital follow up w/ her PCP and request an outpatient PT referral at that time. aware.
[2025-01-24 11:48] VITALS: BP 122/59; PULSE 62; RESP 16; TEMP 36.3; O2SAT 98
--- NOTE | 2025-01-24 12:05 | PC.NURSE ---
Pt. alert and oriented x4, will drive herself home upon discharge, options for transport discussed with pt. but pt.stated that she will drive herself home. Education provided about safety and health promotion, pt. stated she understood. Staff accompanied the patient to the her car.
== END 2025-01-24 12:08 | disposition home or self-care (01) | DRG 690 ==
LOC: HO.ED 01-23 04:54 → HO.EDOVER 01-23 05:16 → HO.S3 01-23 07:25
PROVIDERS: Emergency Medicine Emergency Medical Services; Admitting Provider Nurse Practitioner Family; Emergency Provider Emergency Medicine; PCP Nurse Practitioner Family; Visit Provider Student in an Organized Health Care Education/Training Program
DX: N39.0 Urinary tract infection, site not specified (principal); N17.9 Acute kidney failure, unspecified; I10 Essential (primary) hypertension; E78.5 Hyperlipidemia, unspecified; I25.10 Atherosclerotic heart disease of native coronary artery without angina pectoris; K76.89 Other specified diseases of liver; B96.20 Unspecified Escherichia coli [E. coli] as the cause of diseases classified elsewhere; L27.1 Localized skin eruption due to drugs and medicaments taken internally; T37.8X5A Adverse effect of other specified systemic anti-infectives and antiparasitics, initial encounter; Z88.0 Allergy status to penicillin; Z79.82 Long term (current) use of aspirin; Z79.899 Other long term (current) drug therapy
CPT/HCPCS: 36415; 74176; 80048; 80053; 80076; 81001; 82248; 83605; 83735; 84439; 84443; 85025; 86704; 86706; 86709; 86803; 87086; 87340; 97161; 99285; J0696; J1644

== ENCOUNTER → 2025-01-23 02:08 | Outpatient (BNV) | payer MEDICARE, SELFPAY | PROVIDERS: PCP Nurse Practitioner Family; Visit Provider General Practice | DX: R10.9 Unspecified abdominal pain (principal) | CPT/HCPCS: 74176 ==

== ENCOUNTER → 2025-01-23 05:05 | Outpatient (BNV) | payer MEDICARE, SELFPAY | PROVIDERS: Admitting Provider Nurse Practitioner Family; Emergency Provider Emergency Medicine; PCP Nurse Practitioner Family; Visit Provider Nurse Practitioner Family | DX: N39.0 Urinary tract infection, site not specified (principal); N17.9 Acute kidney failure, unspecified; R21 Rash and other nonspecific skin eruption; K76.89 Other specified diseases of liver; R74.01 Elevation of levels of liver transaminase levels; R53.1 Weakness | CPT/HCPCS: 99222; 99239; 99499 ==

== ENCOUNTER 2025-03-07 09:03 | Outpatient (AMB) | payer MEDICARE, SELFPAY ==
--- NOTE | 2025-03-07 09:04 | MHC.OFFWIV ---
Intake Vital Signs 03/07/25 09:05 Height 5 ft 2 in Weight 159 lb BMI 29.1 BP 132/80 Blood Pressure Location Lt brachial Position Sitting Respiration 16 Pulse 58 Pulse Source Pulse Oximeter Temp 97.9 F Temp Source Oral Pulse Oximetry (%) 98 Oxygen Delivery Method Room Air Intake Visit Reasons: EP pain on LT should blade Intake Note: Pt is here today c/o Lt shoulder pain n injury noted x3days Patient Tobacco Use Status: Never used Tobacco Allergies penicillin V Allergy (Unknown, Verified 03/07/25 09:12) rash Penicillins Allergy (Unknown, Verified 03/07/25 09:12) RASH Medication List - Last Reconciled 03/07/25 by ERIKA Anand-JAXSON acetaminophen 975 mg (3 x 325 mg) PO Q6H PRN aspirin 81 mg PO DAILY atorvastatin 40 mg PO BEDTIME biotin 1 mg PO DAILY ipratropium bromide 2 sprays intranasal BID lisinopril 5 mg PO DAILY metoprolol succinate ER 25 mg PO DAILY [id number]-[id number] C-herb no.124 250-11.66 mg (Airborne Gummy) 3 tabs PO DAILY omeprazole 20 mg PO DAILY@0630 HPI HPI Comments History of Present Illness Details History of Present Illness - The patient is an 84-year-old female presenting with left shoulder pain. - Mechanical Fall occurred on Sunday, subsequent onset of pain. - landed on left side. - Pain described as acute, severe, with night-time exacerbation. - Pain radiates to neck and arm. - History includes left shoulder replacement. - Attempted pain relief with heating pad, massage, and Tylenol. - Denies nausea, back pain, or breathing difficulties. - Reports scoliosis affects arm elevation. Review of Systems - Musculoskeletal: Reports left shoulder pain, radiating to neck and down the arm. - Neurological: Denies loss of consciousness during fall. - Respiratory: Denies breathing difficulties. - Gastrointestinal: Denies nausea. - General: Denies back pain. Exam Awake alert NAD RRR LS CTAB L arm neurovasc intact, reproducible pain w palpation over L scapula, posterior shoulder, LROM in all directions. Pt states baseline d/t scoliosis and previous spine surgery. No obvious deformity. EKG sinus aris XR shoulder and scap official read pending. I reviewed film and did not see anything obvious or acute. Discussion Notes I discussed the potential for the shoulder pain to be musculoskeletal or possibly cardiac in origin, particularly given its radiating nature. I explained the need for further evaluation through an x-ray to assess the shoulder, scapula, and clavicle due to the history of shoulder replacement and recent trauma. I also recommended an electrocardiogram (EKG) to assess cardiac involvement as symptoms in females might mimic musculoskeletal pain. I assured the patient that I would review these results to confirm the best treatment approach. For immediate relief, I proposed providing medication for pain, pending the evaluation results. I also explained the importance of confirming the pain origin to direct appropriate treatment. Patient consented to both the x-ray and EKG. Assessment and Plan 1. Left shoulder pain - X-ray of left shoulder and EKG ordered. - Pain management to be adjusted after evaluation. 2. Scoliosis - Impacts range of motion; adjust exercises accordingly. 3. History of shoulder replacement - Consider in imaging review post-fall. Pt will be called w/ XR results if there is an acute finding. Otherwise, I have RXd Meloxicam 7.5mg 1 tab po QD to be taken w/ food as needed. Supportive care recommended. If acute finding, [facility] did her shoulder replacement and she should fu w/ them. She agreed to understanding. Consent Patient was informed and verbally consented to the use of an ambient scribe for clinic note documentation during this visit. Total time spent caring for the patient today was 41 minutes. This includes time spent before the visit reviewing the chart, time spent during the visit, and time spent after the visit on documentation, reviewing laboratory results, diagnostic imaging, medications, performing a medically necessary evaluation, counseling on diagnoses, care coordination, ordering appropriate tests, ordering appropriate medications, review of tests performed by other providers, reporting test results with the patient, communication with other healthcare providers. [facility] Medical History Hypertension Cystitis Hyperlipidemia GERD (gastroesophageal reflux disease) Irritable bowel syndrome with constipation Surgical History History of back surgery H/O shoulder surgery Status post right knee replacement H/O esophagogastroduodenoscopy Hx of colonoscopy Family History Father No problems noted. Mother Diabetes Heart problem Social History Household Members: None Housing: House Do you presently have visiting nurse or other home services: No Alcohol intake: never Comment: pt rings appropriately Patient Tobacco Use Status: Never used Tobacco Second Hand Smoke Exposure: No Advance Directives Date on File: 11/18/23 service: No Physical Exam Vital Signs: Last Vital Signs Temp 97.9 F 03/07/25 09:05 Pulse 58 03/07/25 09:05 Resp 16 03/07/25 09:05 BP 132/80 03/07/25 09:05 Pulse Ox 98 03/07/25 09:05 Oxygen Delivery Method Room Air 03/07/25 09:05 BMI result Body Mass Index 29.1 Office Procedures EKG 71560-[id number], Complete Assessment & Plan Assessment & Plan (1) Fall: Code(s): W19.XXXA - Unspecified fall, initial encounter Qualifiers: Encounter type: initial encounter Qualified Code(s): W19.XXXA - Unspecified fall, initial encounter (2) Left shoulder pain: Code(s): M25.512 - Pain in left shoulder Qualifiers: Chronicity: acute Qualified Code(s): M25.512 - Pain in left shoulder (3) Pain of left scapula: Code(s): M89.8X1 - Other specified disorders of bone, shoulder (4) History of left shoulder replacement: Code(s): Z96.612 - Presence of left artificial shoulder joint Plan . Orders: Orders XR scapula LT Today M25.512 - Pain in left shoulder, M89.8X1 - Other specified disorders of bone, shoulder, W19.XXXA - Unspecified fall, initial encounter XR shoulder LT min 2V Today M25.512 - Pain in left shoulder, M89.8X1 - Other specified disorders of bone, shoulder, W19.XXXA - Unspecified fall, initial encounter Medications: New meloxicam 7.5 mg PO DAILY 20 tabs 0RF Coding Level of Care Code Est Pt Level 5 (25471) Diagnoses Fall, initial encounter W19.XXXA Encounter type: initial encounter Acute pain of left shoulder M25.512 Chronicity: acute Pain of left scapula M89.8X1 History of left shoulder replacement Z96.612 CPT Codes EKG - CPT: 83983-Zuqnssrltyfqbltmt, Complete ([id number])
[2025-03-07 09:05] VITALS: BP 132/80; PULSE 58; RESP 16; TEMP 36.6; O2SAT 98; BMI 29.1
--- OUTSIDE RECORDS SUMMARY | 2025-03-07 09:05 | XMS_ITS | Clinical Summary ---
Author Organization [facility], Address [address] [place] [address] Phone Care Team Providers Care Graphic Engineer Name Role Phone AlexandriaEliza NP Primary Care Provider [phone] Encounters Date Type Department Care Team Description 02/13/2025 Documentation Only [facility] [address] [place] [address] Yessenia Steen MA 02/11/2025 Telephone [facility] [address] [place] [address] Yessenia Steen MA 02/11/2025 Documentation Only [facility] [address] [place] [address] Yessenia Steen MA from Last 3 Months Social History Tobacco Use Types Packs/Day Years Used Date Smoking Tobacco: Never Assessed Comments Unknown Sex and Gender Information Value Date Recorded Sex Assigned at Not on file Legal Sex Female 1:21 PM EDT Gender Identity Not on file Sexual Orientation Not on file Plan of Treatment Upcoming Encounters Date Type Department Care Team (Late st Contact Info) Description 03/31/2025 4:30 PM EDT Office Visit [facility] [address] [place] [address] Brayden Smiley MD [address] [place] [address] [place] [address] Health Maintenance Due Date Last Done Comments Influenza Vaccine (Season Ended) 2025 Pneumococcal Vaccine: 50+ Years Completed 09/24/2023, 07/28/2021, 03/13/2017 Hepatitis B Vaccine Aged Out No longe r eligible based on patient's age to complete this topic Insurance Medicare [facility] Care Teams Graphic Engineer Relationship Specialty Start Date End Date Eliza Ibrahim NP [address] [place] [phone] PCP - General Nurse Practitioner 02/11/25
== END 2025-03-07 10:23 | disposition home or self-care (01) ==
PROVIDERS: Visit Provider Nurse Practitioner Family
DX: M25.512 Pain in left shoulder (principal); W19.XXXA Unspecified fall, initial encounter; M89.8X1 Other specified disorders of bone, shoulder; Z96.612 Presence of left artificial shoulder joint

== ENCOUNTER 2025-03-07 09:03 | Outpatient (REF) | payer MEDICARE, SELFPAY ==
--- NOTE | ~2025-03-07 | XR_ITS ---
CLINICAL HISTORY: M25.512 - Pain in left shoulder 2 view left scapula Comparison: CR - XR SHOULDER LT MIN 2V - 03/07/25 09:48 EDT Findings: Bones intact. No dislocations. Left shoulder arthroplasty. Bilateral Spring rods. No significant arthritic change. No erosions. No radiopaque foreign body. IMPRESSION: 1. No acute findings This document has been electronically signed by: Glory Byrd MD on 03/07/2025 10:32:50
--- NOTE | ~2025-03-07 | XR_ITS ---
CLINICAL HISTORY: M25.512 - Pain in left shoulder 3 view left shoulder Comparison: None Findings: Left shoulder arthroplasty. Thoracolumbar spinal fixation hardware. Mildly displaced fracture within the left sided spinal fixation hardware at the lower thoracic level. Bones intact. No dislocations. No significant loss of joint space or osteophytes. No erosions. No radiopaque foreign body. IMPRESSION: 1. Postsurgical sequelae. 2. Fractured left-sided Spring zelda. This document has been electronically signed by: Glory Byrd MD on 03/07/2025 10:30:34
== END 2025-03-07 09:04 | disposition home or self-care (01) ==
LOC: HO.HMGCX 09:03
PROVIDERS: PCP Nurse Practitioner Family; Visit Provider Nurse Practitioner Family
DX: M89.8X1 Other specified disorders of bone, shoulder (principal); T84.84XA Pain due to internal orthopedic prosthetic devices, implants and grafts, initial encounter; Z96.612 Presence of left artificial shoulder joint; W19.XXXA Unspecified fall, initial encounter
CPT/HCPCS: 73010; 73030; 93005; 99212

== ENCOUNTER → 2025-03-07 09:38 | Outpatient (BNV) | payer MEDICARE, SELFPAY | PROVIDERS: PCP Nurse Practitioner Family; Visit Provider Radiology Diagnostic Radiology | DX: M25.512 Pain in left shoulder (principal) | CPT/HCPCS: 73010; 73030 ==